=== PATIENT | male | born 1970 | race Hispanic/Latino ===

== ENCOUNTER 2017-11-06 17:45 | Emergency (ER) | payer SELFPAY ==
[2017-11-06] MEDS ORDERED: KETOROLAC 30 MG/ML INJ ONE (19:57)
[2017-11-06] MEDS ORDERED: NA CHLORIDE 0.9% 1,000 ML ONE (19:57)
[2017-11-06 20:00] LABS: Bicarbonate 25 mEq/L (21-31); Glucose Level 112 mg/dL (65-120); Potassium 3.9 mEq/L (3.6-5.0); Sodium Level 141 mEq/L (135-145)
[2017-11-06 20:03] LABS: ALT/SGPT 32 IU/L (10-60); AST/SGOT 24 IU/L (10-42); Albumin 4.1 g/dL (3.2-5.5); Alkaline Phosphatase 77 IU/L (42-121); BUN Blood Urea Nitrogen 12 mg/dL (6-20); Bilirubin Total 0.7 mg/dL (0.3-1.2); Protein, Total 6.9 g/dL (6.0-8.3)
--- NOTE | 2017-11-06 20:58 | EDPHYS ---
Physician Documentation [facility] Name: Juan Calabrese Age: 47 yrs Sex: Male : 1970 Arrival Date: 11/06/2017 Time: 17:49 Bed 17 Private MD: ED Physician Brooks Maloney HPI: 11/06 21:09 This 47 yrs old Male presents to ER via Ambulatory with complaints of ARM \T\ tw4 LEG CRAMPS. 21:09 This 47 yrs old Male presents to ER via Ambulatory with complaints of ARM \T\ tw4 LEG CRAMPS. 21:09 The patient presents with pain, that is acute. The complaints affect the left tw4 quadriceps, right quadriceps. Context:. Onset: The symptoms/episode began/occurred yesterday, states occurred after strenuous exercise. Modifying factors: The symptoms are alleviated by nothing. the symptoms are aggravated by nothing. Associated signs and symptoms: The patient has no apparent associated signs or symptoms. The patient has not experienced similar symptoms in the past. Historical: - Allergies: 18:20 No Known Allergies; hb - Home Meds: 18:20 None [Active]; hb - PMHx: 18:20 None; hb - PSHx: 18:20 None; hb - Immunization history:: Adult Immunizations up to date. - Social history:: Smoking status: Patient/guardian denies using tobacco. ROS: 21:09 Constitutional: Negative for fever, chills, and weight loss, Cardiovascular: Negative tw4 for chest pain, palpitations, and edema, Respiratory: Negative for shortness of breath, cough, wheezing, and pleuritic chest pain, Abdomen/GI: Negative for abdominal pain, nausea, vomiting, diarrhea, and constipation, Back: Negative for injury and pain, Neuro: Negative for headache, weakness, numbness, tingling, and seizure, Psych: Negative for depression, anxiety, suicide ideation, homicidal ideation, and hallucinations. 21:09 MS/extremity: Positive for pain. Exam: 21:09 Constitutional: This is a well developed, well nourished patient who is awake, alert, tw4 and in no acute distress. Head/Face: Normocephalic, atraumatic. Chest/axilla: Normal chest wall appearance and motion. Nontender with no deformity. No lesions are appreciated. Cardiovascular: Regular rate and rhythm with a normal S1 and S2. No gallops, murmurs, or rubs. Normal PMI, no JVD. No pulse deficits. Respiratory: Lungs have equal breath sounds bilaterally, clear to auscultation and percussion. No rales, rhonchi or wheezes noted. No increased work of breathing, no retractions or nasal flaring. Abdomen/GI: Soft, non-tender, with normal bowel sounds. No distension or tympany. No guarding or rebound. No evidence of tenderness throughout. 21:09 MS/ Extremity: Pulses equal, no cyanosis. Neurovascular intact. Full, normal range of motion. Vital Signs: 18:19 BP 162 / 87; Pulse 81; Resp 18; Temp 97.5; Pulse Ox 98% ; Weight 136.08 kg; Height 6 hb ft. 3 in. (190.50 cm); Pain 5/10; 20:49 BP 133 / 76; Pulse 72; Resp 17 S; Pulse Ox 97% on R/A; Pain 1/10; jd3 18:19 Body Mass Index 37.50 (136.08 kg, 190.50 cm) hb MDM: 19:12 Patient medically screened. tw4 21:09 Differential diagnosis: contusion, tendonitis. Data reviewed: vital signs, nurses tw4 notes. Counseling: I had a detailed discussion with the patient and/or guardian regarding: the historical points, exam findings, and any diagnostic results supporting the discharge/admit diagnosis. Medication response: Toradol relieved patient's pain. The symptoms have resolved. Response to treatment: the patient's symptoms have resolved after treatment, and as a result, I will discharge patient. Special discussion: I discussed with the patient/guardian in detail that at this point there is no indication for admission to the hospital. It is understood, however, that if the symptoms persist or worsen the patient needs to return immediately for re-evaluation. 11/06 19:29 Order name: CMP; Complete Time: 20:19 tw4 11/06 19:29 Order name: Magnesium; Complete Time: 20:19 tw4 11/06 19:29 Order name: Saline Lock; Complete Time: 19:53 tw4 11/06 20:19 Order name: CK; Complete Time: 20:57 tw4 Administered Medications: 20:02 Drug: NS 0.9% 1000 ml Route: IV; Rate: 1 bolus; Site: right antecubital; jd3 21:19 Follow up: Response: No adverse reaction; IV Status: Completed infusion; IV Intake: jd3 1000ml 20:03 Drug: TORadol 30 mg Route: IVP; Site: right antecubital; jd3 20:49 Follow up: Response: No adverse reaction; Pain is decreased jd3 Disposition: 11/06/17 20:57 Discharged to Home. Impression: Muscle spasm, Myalgia. - Condition is Stable. - Discharge Instructions: Muscle Pain, Adult. - Prescriptions for Ibuprofen 800 mg Oral Tablet - take 1 tablet by ORAL route every 8 hours As needed take with food; 30 tablet. - Medication Reconciliation Form, Thank You Letter, Antibiotic Education, Prescription Opioid Use form. - Follow up: Private Physician; When: As needed; Reason: Recheck today's complaints, Continuance of care, Re-evaluation by your physician. - Problem is new. - Symptoms have improved. Signatures: Dispatcher [employer] EDJocelyn Stevens RN RN Brown Mcdonald RN RN jd3 Wadley, Terrence, MD MD tw4 Corrections: (The following items were deleted from the chart) 21:26 20:57 11/06/2017 20:57 Discharged to Home. Impression: Muscle spasm; Myalgia. Condition jd3 is Stable. Forms are Medication Reconciliation Form, Thank You Letter, Antibiotic Education, Prescription Opioid Use. Follow up: Private Physician; When: As needed; Reason: Recheck today's complaints, Continuance of care, Re-evaluation by your physician. Problem is new. Symptoms have improved. tw4
--- NOTE | 2017-11-06 20:58 | ER ---
Nurse's Notes [facility] Name: Juan Calabrese Age: 47 yrs Sex: Male : 1970 Arrival Date: 11/06/2017 Time: 17:49 Bed 17 Private MD: Diagnosis: Muscle spasm;Myalgia Presentation: 11/06 18:18 Presenting complaint: Patient states: Severe muscle soreness and spasms after moving furniture then working out while wearing plastic suit 2 days ago. Transition of care: patient was not received from another setting of care. Onset of symptoms was November 06, 2017. Initial Sepsis Screen: Does the patient meet any 2 criteria? No. Patient's initial sepsis screen is negative. Does the patient have a suspected source of infection? No. Patient's initial sepsis screen is negative. Care prior to arrival: None. 18:18 Method Of Arrival: Ambulatory hb 18:18 Acuity: GUERA 3 hb Historical: - Allergies: 18:20 No Known Allergies; hb - Home Meds: 18:20 None [Active]; hb - PMHx: 18:20 None; hb - PSHx: 18:20 None; hb - Immunization history:: Adult Immunizations up to date. - Social history:: Smoking status: Patient/guardian denies using tobacco. Screenin:21 Abuse screen: Denies threats or abuse. Nutritional screening: No deficits noted. jd3 Tuberculosis screening: No symptoms or risk factors identified. Fall Risk Mental Status- Oriented to own ability (0 pts). Total Caruso Fall Scale indicates No Risk (0-24 pts). Assessment: 19:15 General: Appears in no apparent distress. distressed, comfortable, Behavior is calm, jd3 cooperative, appropriate for age, Reports leg and arm cramps/pain and soreness. Pain: Complains of pain in right arm, left arm, right leg and left leg Pain currently is 5 out of 10 on a pain scale. Pain began 2-3 days ago. Is continuous, Aggravated by increased activity. Neuro: Level of Consciousness is awake, alert, obeys commands, Oriented to person, place, time, situation. Cardiovascular: Heart tones S1 S2 present Capillary refill < 3 seconds Patient's skin is warm and dry. Respiratory: Airway is patent Respiratory effort is even, unlabored, Respiratory pattern is regular, symmetrical, Breath sounds are clear bilaterally. GI: No signs and/or symptoms were reported involving the gastrointestinal system. : Denies burning with urination, inability to void. EENT: No signs and/or symptoms were reported regarding the EENT system. Derm: Skin is intact, Skin is diaphoretic, Skin is normal, Skin temperature is warm. Musculoskeletal: Circulation, motion, and sensation intact. Range of motion: intact in all extremities. 20:49 Reassessment: Patient appears in no apparent distress at this time. Patient and/or jd3 family updated on plan of care and expected duration. Pain level reassessed. Patient is alert, oriented x 3, equal unlabored respirations, skin warm/dry/pink. Patient states feeling better. 21:24 Reassessment: Patient appears in no apparent distress at this time. Patient and/or jd3 family updated on plan of care and expected duration. Pain level reassessed. Patient is alert, oriented x 3, equal unlabored respirations, skin warm/dry/pink. pt reported understanding of discharge instructions, even and steady gait upon discharge. Patient states feeling better. Vital Signs: 18:19 BP 162 / 87; Pulse 81; Resp 18; Temp 97.5; Pulse Ox 98% ; Weight 136.08 kg; Height 6 hb ft. 3 in. (190.50 cm); Pain 5/10; 20:49 BP 133 / 76; Pulse 72; Resp 17 S; Pulse Ox 97% on R/A; Pain 1/10; jd3 18:19 Body Mass Index 37.50 (136.08 kg, 190.50 cm) hb ED Course: 17:49 Patient arrived in ED. al2 18:19 Triage completed. hb 18:20 Arm band placed on right wrist. hb 19:12 Brooks Maloney MD is Attending Physician. tw4 19:15 Brown Mcdonald RN is Primary Nurse. jd3 19:22 Patient has correct armband on for positive identification. Bed in low position. Call jd3 light in reach. Side rails up X 1. 19:40 Inserted saline lock: 20 gauge in right antecubital area, using aseptic technique. jd3 Blood collected. 21:24 No provider procedures requiring assistance completed. IV discontinued, intact, jd3 bleeding controlled, No redness/swelling at site. Pressure dressing applied. Administered Medications: 20:02 Drug: NS 0.9% 1000 ml Route: IV; Rate: 1 bolus; Site: right antecubital; jd3 21:19 Follow up: Response: No adverse reaction; IV Status: Completed infusion; IV Intake: jd3 1000ml 20:03 Drug: TORadol 30 mg Route: IVP; Site: right antecubital; jd3 20:49 Follow up: Response: No adverse reaction; Pain is decreased jd3 Intake: 21:19 IV: 1000ml; Total: 1000ml. jd3 Outcome: 20:57 Discharge ordered by . acacia 21:24 Discharged to home ambulatory. jd3 21:24 Condition: stable 21:24 Discharge instructions given to patient, Instructed on discharge instructions, follow up and referral plans. medication usage, Demonstrated understanding of instructions, follow-up care, medications, Prescriptions given X 1. 21:26 Patient left the ED. jd3 Signatures: Jocelyn James, RN Brown Lama RN RN jd3 Love, Angelica al2 Wadley, Terrence, MD MD tw4
== END 2017-11-06 21:26 | disposition home or self-care (01) ==
LOC: ER 17:45
DX: M62.838 Other muscle spasm (principal); M79.1 Myalgia
CPT/HCPCS: 36415; 80053; 82550; 83735; 96361; 96374; 99284; J7030

== ENCOUNTER 2017-12-06 10:36 | Emergency (ER) | payer SELFPAY ==
[2017-12-06 11:35] LABS: Absolute Lymphocytes (CBC) 1.4 K/uL (0.7-4.9); Absolute Monocytes 0.5 K/uL (0.1-1.3); Absolute Neutrophil 5.3 K/uL (1.8-8.0); Basophils % 0.3 % (0-1.3); Eosinophils % 0.8 % (0-4.4); Hematocrit 42.9 % (39.6-49.0); Lymphocytes % 19.1 % (15.3-44.8); MCH 30.3 pg (27.0-35.0); MCV 90.7 fL (80-100); Monocytes % 7.5 % (3.3-12.3); RBC Red Blood Cell Count 4.73 M/uL (4.33-5.43)
[2017-12-06 11:40] LABS: Protime INR 1.04
[2017-12-06 11:46] LABS: Urine Blood NEGATIVE (NEG); Urine Glucose NEGATIVE (NEG); Urine Protein 2+ (NEG); Urine Specific Gravity 1.025 (1.005-1.030); Urine pH 5.5 (5.0-7.0)
[2017-12-06] MEDS ORDERED: NA CHLORIDE 0.9% 1,000 ML ONE (11:46)
[2017-12-06 11:49] LABS: Potassium 3.7 mEq/L (3.6-5.0)
[2017-12-06 11:55] LABS: Bilirubin Direct 0.1 mg/dL (0-0.2); Protein, Total 6.7 g/dL (6.0-8.3)
[2017-12-06 11:58] LABS: CKMB Creatine Kinase MB 4.9 ng/ml (0.3-4.0)
--- NOTE | 2017-12-06 12:40 | ER ---
Nurse's Notes [facility] Name: Juan Calabrese Age: 47 yrs Sex: Male : 1970 Arrival Date: 12/06/2017 Time: 10:39 Bed 13 Private MD: Cedric Mandel Diagnosis: Dehydration;Heat fatigue, transient Presentation: 12/06 10:43 Presenting complaint: Patient states: Reports generalized weakness and sweating when aj working outside in the afternoon for the past week. Seen in this ER for same complaint, has not followed up with PCP. Ambulated to triage with steady gait from vending machines. Transition of care: patient was not received from another setting of care. Onset of symptoms was November 29, 2017. Risk Assessment: Do you want to hurt yourself or someone else? Patient reports no desire to harm self or others. Care prior to arrival: None. 10:43 Method Of Arrival: Ambulatory aj 10:43 Acuity: GUERA 5 aj 12:52 Initial Sepsis Screen: Does the patient meet any 2 criteria? No. Patient's initial jl7 sepsis screen is negative. Does the patient have a suspected source of infection? No. Patient's initial sepsis screen is negative. Triage Assessment: 10:45 General: Appears in no apparent distress. comfortable, Behavior is calm, cooperative, aj appropriate for age. Pain: Denies pain. Neuro: Level of Consciousness is awake, alert, obeys commands, Oriented to person, place, time, situation, Appropriate for age. Respiratory: Airway is patent Respiratory effort is even, unlabored, Respiratory pattern is regular, symmetrical. Derm: Skin is intact, is healthy with good turgor, Skin is pink, warm \T\ dry. normal. Historical: - Allergies: 10:45 No Known Allergies; aj - Home Meds: 10:45 None [Active]; aj - PMHx: 10:45 None; aj - PSHx: 10:45 None; aj - Immunization history:: Adult Immunizations up to date. - Social history:: Smoking status: Patient/guardian denies using tobacco. - Ebola Screening: : Patient negative for fever greater than or equal to 101.5 degrees Fahrenheit, and additional compatible Ebola Virus Disease symptoms Patient denies exposure to infectious person Patient denies travel to an Ebola-affected area in the 21 days before illness onset No symptoms or risks identified at this time. - Family history:: not pertinent. - Hospitalizations: : No recent hospitalization is reported. - History obtained from: . Screenin:59 Abuse screen: Denies threats or abuse. Denies injuries from another. Nutritional jl7 screening: No deficits noted. Tuberculosis screening: No symptoms or risk factors identified. Fall Risk None identified. Assessment: 10:59 General: Appears in no apparent distress. uncomfortable, Behavior is cooperative. Pain: jl7 Denies pain. Neuro: Level of Consciousness is awake, alert, obeys commands, Oriented to person, place, time, situation. Cardiovascular: Patient's skin is warm and dry. Respiratory: Airway is patent Respiratory effort is even, unlabored, Respiratory pattern is regular, symmetrical. GI: No signs and/or symptoms were reported involving the gastrointestinal system. Patient currently denies constipation, diarrhea, nausea, vomiting. : No signs and/or symptoms were reported regarding the genitourinary system. EENT: No signs and/or symptoms were reported regarding the EENT system. Derm: Skin is pink, warm \T\ dry. Musculoskeletal: Reports intermittent cramping to bilateral lower extremities. 11:54 Reassessment: No changes from previously documented assessment. Patient and/or family jl7 updated on plan of care and expected duration. Pain level reassessed. Patient is alert, oriented x 3, equal unlabored respirations, skin warm/dry/pink. 12:51 Reassessment: NS bolus infusing at this time, pt will be discharged upon completion. jl7 Vital Signs: 10:45 BP 119 / 63; Pulse 67; Resp 19; Temp 98.3; Pulse Ox 97% on R/A; Weight 127.01 kg; aj Height 6 ft. 3 in. (190.50 cm); 11:52 BP 109 / 76; Pulse 61; Resp 14; Pulse Ox 94% on R/A; jl7 13:42 BP 121 / 64; Pulse 65; Resp 16; Pulse Ox 98% ; jl7 10:45 Body Mass Index 35.00 (127.01 kg, 190.50 cm) aj NIH Stroke Scale Scores: 11:27 NIHSS Score: 0 kav ED Course: 10:39 Patient arrived in ED. mr 10:39 Cedric Mandel MD is Private Physician. mr 10:45 Triage completed. aj 10:45 Arm band placed on right wrist. Patient placed in an exam room. aj 10:53 Carrie Castaneda, RN is Primary Nurse. jl7 10:59 Patient has correct armband on for positive identification. Bed in low position. Call jl7 light in reach. 11:08 [facility]oney [facility] kav 11:08 Paul Crowe MD is Attending Physician. kav 11:35 Initial lab(s) drawn, by wi, sent to lab. Urine collected: clean catch specimen, alex mh5 colored. Inserted saline lock: 20 gauge in right antecubital area, using aseptic technique. Blood collected. 11:36 EKG done, by bacteriology technician. reviewed by Ruth MERCHANT. dt2 11:37 Basic Metabolic Panel Sent. mh5 11:37 BNP Sent. mh5 11:37 CBC with Diff Sent. mh5 11:37 Ckmb Sent. mh5 11:37 CPK Sent. mh5 11:37 LFT's Sent. mh5 11:37 Magnesium Sent. mh5 11:38 PT-INR Sent. mh5 11:38 Ptt, Activated Sent. mh5 11:38 Troponin (emerg Dept Use Only) Sent. mh5 12:38 Cedric Mandel MD is Referral Physician. kav 12:52 No provider procedures requiring assistance completed. jl7 13:41 IV discontinued, intact, bleeding controlled, No redness/swelling at site. Pressure jl7 dressing applied. Administered Medications: 11:50 Drug: NS 0.9% 1000 ml Route: IV; Rate: 1000 ml; Site: right antecubital; 7 Outcome: 12:39 Discharge ordered by . kav 13:41 Discharged to home ambulatory, with family. jl7 13:41 Condition: stable 13:41 Discharge instructions given to patient, family, Instructed on discharge instructions, follow up and referral plans. Demonstrated understanding of instructions, follow-up care. 13:43 Patient left the ED. jl7 NIH Stroke Scale - NIH Stroke Score Date: 12/06/2017 Time: 11:27 Total Score = 0 1a. Level of Consciousness (LOC) - 0(Alert) 1b. Level of Consciousness (LOC) (Year \T\ Age) - 0(Both) 1c. LOC Commands (Open \T\ Closes Eyes/Nuclear Technician) - 0(Both) 2. Best Gaze (Lateral Gaze Paresis) - 0(Normal) 3. Visual Field Loss - 0(No visual loss) 4. Facial Palsy - 0(Normal) 5a. Left Arm: Motor (10-second hold) - 0(No drift) 5b. Right Arm: Motor (10-second hold) - 0(No drift) 6a. Left Leg: Motor (5-second hold - always test supine) - 0(No drift) 6b. Right Leg: Motor (5-second hold - always test supine) - 0(No drift) 7. Limb Ataxia (finger/nose \T\ heel/green - test with eyes open) - 0(Absent) 8. Sensory Loss (pinprick arms/legs/face) - 0(Normal) 9. Best Language: Aphasia (description/naming/reading) - 0(No aphasia) 10. Dysarthria (speech clarity - read or repeat words) - 0(Normal) 11. Extinction and Inattention (visual/tactile/auditory/spatial/personal) - 0(No abnormality) Initials: wilber Signatures: Krissy Rojas, Ruth Vallecillo RN, CEMENT RUBBER CEMENT RUBBER Afshan Tirado, Afshan Carrie Villafana, Socorro Polk RN
--- NOTE | 2017-12-06 12:40 | EDPHYS ---
Physician Documentation [facility] Name: Juan Calabrese Age: 47 yrs Sex: Male : 1970 Arrival Date: 12/06/2017 Time: 10:39 Bed 13 Private MD: Cedric Mandel ED Physician Paul Crowe HPI: 12/06 11:08 This 47 yrs old Male presents to ER via Ambulatory with complaints of Weakness.kav 11:24 The patient presents to the emergency department with weakness of the entire body, kav generalized weakness. Onset: The symptoms/episode began/occurred acutely, 1 week(s) ago. Context: occurred at work. Associated signs and symptoms: The patient has no apparent associated signs or symptoms, Pertinent positives: Pertinent negatives: chills, fever, headache, nausea. Severity of symptoms: At their worst the symptoms were mild just prior to arrival. Patient's baseline: Neuro: alert and fully oriented, Motor: no deficits, Ambulation: walks without assistance, Speech: normal. Current symptoms: Currently, the patient is not experiencing any symptoms. The patient has not experienced similar symptoms in the past. The patient has not recently seen a physician. patient reports that he "..works as a engineering instructor outside in the heat." he reports that he drinks plenty of fluids and electrolyte replacement at work. he also goes to the gym each evening and works out for 2-3 hours. he denies drinking energy drinks or taking supplements". Historical: - Allergies: 10:45 No Known Allergies; aj - Home Meds: 10:45 None [Active]; aj - PMHx: 10:45 None; aj - PSHx: 10:45 None; aj - Immunization history:: Adult Immunizations up to date. - Social history:: Smoking status: Patient/guardian denies using tobacco. - Ebola Screening: : Patient negative for fever greater than or equal to 101.5 degrees Fahrenheit, and additional compatible Ebola Virus Disease symptoms Patient denies exposure to infectious person Patient denies travel to an Ebola-affected area in the 21 days before illness onset No symptoms or risks identified at this time. - Family history:: not pertinent. - Hospitalizations: : No recent hospitalization is reported. - History obtained from: . ROS: 11:27 Constitutional: Negative for fever, chills, and weight loss, Eyes: Negative for injury, kav pain, redness, and discharge, ENT: Negative for injury, pain, and discharge, Neck: Negative for injury, pain, and swelling, Cardiovascular: Negative for chest pain, palpitations, and edema, Respiratory: Negative for shortness of breath, cough, wheezing, and pleuritic chest pain, Abdomen/GI: Negative for abdominal pain, nausea, vomiting, diarrhea, and constipation, Back: Negative for injury and pain, : Negative for injury, bleeding, discharge, and swelling, MS/Extremity: Negative for injury and deformity, Skin: Negative for injury, rash, and discoloration, Psych: Negative for depression, anxiety, suicide ideation, homicidal ideation, and hallucinations, Allergy/Immunology: Negative for hives, rash, and allergies, Endocrine: Negative for neck swelling, polydipsia, polyuria, polyphagia, and marked weight changes, Hematologic/Lymphatic: Negative for swollen nodes, abnormal bleeding, and unusual bruising. 11:27 Neuro: Positive for weakness, Negative for dizziness, headache, loss of consciousness, seizure activity, speech changes, syncope, tingling, tinnitus, tremor, visual changes. Exam: 11:27 Constitutional: This is a well developed, well nourished patient who is awake, alert, kav and in no acute distress. Head/Face: Normocephalic, atraumatic. Eyes: Pupils equal round and reactive to light, extra-ocular motions intact. Lids and lashes normal. Conjunctiva and sclera are non-icteric and not injected. Cornea within normal limits. Periorbital areas with no swelling, redness, or edema. ENT: Nares patent. No nasal discharge, no septal abnormalities noted. Tympanic membranes are normal and external auditory canals are clear. Oropharynx with no redness, swelling, or masses, exudates, or evidence of obstruction, uvula midline. Mucous membranes moist. Neck: Trachea midline, no thyromegaly or masses palpated, and no cervical lymphadenopathy. Supple, full range of motion without nuchal rigidity, or vertebral point tenderness. No Meningismus. Chest/axilla: Normal chest wall appearance and motion. Nontender with no deformity. No lesions are appreciated. Cardiovascular: Regular rate and rhythm with a normal S1 and S2. No gallops, murmurs, or rubs. Normal PMI, no JVD. No pulse deficits. Respiratory: Lungs have equal breath sounds bilaterally, clear to auscultation and percussion. No rales, rhonchi or wheezes noted. No increased work of breathing, no retractions or nasal flaring. Abdomen/GI: Soft, non-tender, with normal bowel sounds. No distension or tympany. No guarding or rebound. No evidence of tenderness throughout. Back: No spinal tenderness. No costovertebral tenderness. Full range of motion. Skin: Warm, dry with normal turgor. Normal color with no rashes, no lesions, and no evidence of cellulitis. MS/ Extremity: Pulses equal, no cyanosis. Neurovascular intact. Full, normal range of motion. Psych: Awake, alert, with orientation to person, place and time. Behavior, mood, and affect are within normal limits. 11:27 Neuro: Exam negative for Vital Signs: 10:45 BP 119 / 63; Pulse 67; Resp 19; Temp 98.3; Pulse Ox 97% on R/A; Weight 127.01 kg; aj Height 6 ft. 3 in. (190.50 cm); 11:52 BP 109 / 76; Pulse 61; Resp 14; Pulse Ox 94% on R/A; jl7 13:42 BP 121 / 64; Pulse 65; Resp 16; Pulse Ox 98% ; jl7 10:45 Body Mass Index 35.00 (127.01 kg, 190.50 cm) NIH Stroke Scale Scores: 11:27 NIHSS Score: 0 ka MDM: 11:08 Medical screening is not applicable. ka 12:38 Data reviewed: vital signs, EMS record, lab test result(s). 12/06 11:09 Order name: Basic Metabolic Panel; Complete Time: 12:16 12/06 12:16 Interpretation: Normal except: GLUC 183; GFR 83. 12/06 11:09 Order name: BNP; Complete Time: 12:17 12/06 12:17 Interpretation: Within normal limits. 12/06 11:09 Order name: CBC with Diff; Complete Time: 12:18 12/06 12:18 Interpretation: Within normal limits. 12/06 11:09 Order name: Ckmb; Complete Time: 12:17 12/06 12:17 Interpretation: Abnormal: CKMB 4.9. 12/06 11:09 Order name: CPK; Complete Time: 12:16 kav 12/06 12:16 Interpretation: Within normal limits. 12/06 11:09 Order name: LFT's; Complete Time: 12:16 v 12/06 12:16 Interpretation: Within normal limits. 12/06 11:09 Order name: Magnesium; Complete Time: 12:17 v 12/06 12:17 Interpretation: Within normal limits. 12/06 11:09 Order name: PT-INR; Complete Time: 12:17 v 12/06 11:09 Order name: Ptt, Activated; Complete Time: 12:17 v 12/06 12:18 Interpretation: Abnormal: PTT 24.2. 12/06 11:09 Order name: Troponin (emerg Dept Use Only); Complete Time: 12:16 12/06 12:16 Interpretation: Within normal limits. 12/06 11:09 Order name: EKG; Complete Time: 11:09 [facility] 12/06 11:35 Order name: Urine Dipstick--Ancillary (enter results) bd 12/06 11:35 Order name: Urine Dipstick-Ancillary; Complete Time: 11:48 EDMS 12/06 11:48 Interpretation: Normal except: UPROT 2+. 12/06 11:09 Order name: Cardiac monitoring; Complete Time: 11:51 v 12/06 11:09 Order name: EKG - Nurse/Tech; Complete Time: 11:51 12/06 11:09 Order name: IV Saline Lock; Complete Time: 11:36 12/06 11:09 Order name: Labs collected and sent; Complete Time: 11:36 12/06 11:09 Order name: O2 Per Protocol; Complete Time: 11:51 12/06 11:09 Order name: O2 Sat Monitoring; Complete Time: 11:51 12/06 11:09 Order name: Urine Dipstick-Ancillary (obtain specimen); Complete Time: 11:37 kav Administered Medications: 11:50 Drug: NS 0.9% 1000 ml Route: IV; Rate: 1000 ml; Site: right antecubital; jl7 Disposition: 15:17 Co-signature as Attending Physician, Paul rCowe MD I agree with the assessment and kdr plan of care. Disposition: 12/06/17 12:39 Discharged to Home. Impression: Dehydration, Heat fatigue, transient. - Condition is Stable. - Discharge Instructions: Dehydration, Adult, [id number], Rehydration, Adult. - Medication Reconciliation Form, Thank You Letter, Antibiotic Education, Prescription Opioid Use form. - Follow up: Cedric Mandel MD; When: 1 - 2 days; Reason: Recheck today's complaints, Continuance of care, Re-evaluation by your physician. - Problem is new. - Symptoms have improved. - Notes: ensure adequate hydration with both water and electrolyte supplements do not consume any energy drinks avoid high heat environments NIH Stroke Scale - NIH Stroke Score Date: 12/06/2017 Time: 11:27 Total Score = 0 1a. Level of Consciousness (LOC) - 0(Alert) 1b. Level of Consciousness (LOC) (Year \\T\\ Age) - 0(Both) 1c. LOC Commands (Open \\T\\ Closes Eyes/Medical Management Trainer) - 0(Both) 2. Best Gaze (Lateral Gaze Paresis) - 0(Normal) 3. Visual Field Loss - 0(No visual loss) 4. Facial Palsy - 0(Normal) 5a. Left Arm: Motor (10-second hold) - 0(No drift) 5b. Right Arm: Motor (10-second hold) - 0(No drift) 6a. Left Leg: Motor (5-second hold - always test supine) - 0(No drift) 6b. Right Leg: Motor (5-second hold - always test supine) - 0(No drift) 7. Limb Ataxia (finger/nose \\T\\ heel/green - test with eyes open) - 0(Absent) 8. Sensory Loss (pinprick arms/legs/face) - 0(Normal) 9. Best Language: Aphasia (description/naming/reading) - 0(No aphasia) 10. Dysarthria (speech clarity - read or repeat words) - 0(Normal) 11. Extinction and Inattention (visual/tactile/auditory/spatial/personal) - 0(No abnormality) Initials: wilber Signatures: Dispatcher [employer] Krissy Fung RN RN aj Rittger, Kevin, MD MD kdr Vern, Katherine, CASE THERAPIST CASE THERAPIST Carrie Summers RN RN jl7 Corrections: (The following items were deleted from the chart) 12:17 12:17 Within normal limits. avev kav 12:18 12:17 Abnormal. ka ka 13:43 12:39 12/06/2017 12:39 Discharged to Home. Impression: Dehydration; Heat jl7 fatigue, transient. Condition is Stable. Forms are Medication Reconciliation Form, Thank You Letter, Antibiotic Education, Prescription Opioid Use. Follow up: Cedric Mandel; When: 1 - 2 days; Reason: Recheck today's complaints, Continuance of care, Re-evaluation by your physician. Problem is new. Symptoms have improved. kav
--- NOTE | 2017-12-06 13:57 | EKG ---
Test Date: 2017-12-06 Test Time: 11:32:09 Chief Of Field Operations: SAJI MEASUREMENT RESULTS: Intervals: Rate: 62 IL: 176 QRSD: 120 QT: 420 QTc: 426 [place]: P: 61 IL: 176 QRS: -37 T: 51 INTERPRETIVE STATEMENTS: Normal sinus rhythm Left axis deviation Right bundle branch block Moderate voltage criteria for LVH, may be normal variant Abnormal ECG Compared to ECG 01/02/2017 22:46:03 Right bundle-branch block now present Electronically Signed On 12-06-17 13:57:18 CDT by Ar Ribeiro
== END 2017-12-06 13:43 | disposition home or self-care (01) ==
LOC: ER 10:36
DX: E86.0 Dehydration (principal); T67.5XXA Heat exhaustion, unspecified, initial encounter; X58.XXXA Exposure to other specified factors, initial encounter; Y93.9 Activity, unspecified; Y92.9 Unspecified place or not applicable; Y99.9 Unspecified external cause status
CPT/HCPCS: 36415; 80048; 80076; 81003; 82550; 82553; 83735; 83880; 84484; 85025; 85610; 85730; 93005; 99284; J7030

== ENCOUNTER 2018-02-21 10:32 | Emergency (ER) | payer SELFPAY ==
[2018-02-21] MEDS ORDERED: IBUPROFEN 400 MG TAB ONE (11:35)
[2018-02-21] MEDS ORDERED: NA CHLORIDE 0.9% 1,000 ML ONE ×2 (11:36→11:54)
[2018-02-21 11:47] LABS: Absolute Lymphocytes (CBC) 1.7 K/uL (0.7-4.9); Absolute Monocytes 0.7 K/uL (0.1-1.3); Absolute Neutrophil 5.9 K/uL (1.8-8.0); Basophils % 0.3 % (0-1.3); Eosinophils % 0.5 % (0-4.4); Hematocrit 47.5 % (39.6-49.0); Lymphocytes % 20.4 % (15.3-44.8); MCH 31.3 pg (27.0-35.0); MCV 90.6 fL (80-100); MPV 9.5 fL (7.6-11.3); Monocytes % 7.8 % (3.3-12.3); RBC Red Blood Cell Count 5.23 M/uL (4.33-5.43)
--- NOTE | 2018-02-21 12:01 | RAD REPORT ---
EXAM DESCRIPTION: Valeria Beltran (2 Views)02/21/2018 11:46 am CLINICAL HISTORY: Fever COMPARISON: None FINDINGS: The lungs appear clear of acute infiltrate. The heart is normal size IMPRESSION: No acute abnormalities displayed
[2018-02-21 12:22] LABS: BUN Blood Urea Nitrogen 16 mg/dL (7-18); Bicarbonate 29 mmol/L (21-32); Glucose Level 108 mg/dL (74-106); Potassium 4.1 mmol/L (3.5-5.1); Sodium Level 139 mmol/L (136-145)
[2018-02-21 13:50] LABS: Urine Bacteria <20 /HPF (NONE SEEN); Urine RBC <5 /HPF (NONE SEEN)
[2018-02-21 13:51] LABS: Urine Culture Reflex Order NOT NEEDED
[2018-02-21 13:52] LABS: Urine Blood NEGATIVE (NEG); Urine Glucose NEGATIVE (NEG); Urine Protein NEGATIVE (NEG); Urine Specific Gravity 1.015 (1.005-1.030); Urine pH 7.5 (5.0-7.0)
--- NOTE | 2018-02-21 15:04 | ER ---
Nurse's Notes [facility] Name: Juan Calabrese Age: 47 yrs Sex: Male : 1970 Arrival Date: 02/21/2018 Time: 10:35 Bed 26 Private MD: Cedric Mandel Diagnosis: Fever, unspecified Presentation: 02/21 10:44 Presenting complaint: Patient states: Reports feeling flushed and fatigued this AM with aj unexplained sweating. Denies pain or numbness. Ambulated with steady gait in NAD. Transition of care: patient was not received from another setting of care. Onset of symptoms was February 21, 2018. Risk Assessment: Do you want to hurt yourself or someone else? Patient reports no desire to harm self or others. Initial Sepsis Screen: Does the patient meet any 2 criteria? No. Patient's initial sepsis screen is negative. Does the patient have a suspected source of infection? No. Patient's initial sepsis screen is negative. Care prior to arrival: None. 10:44 Method Of Arrival: Ambulatory 10:44 Acuity: GUERA 3 aj Triage Assessment: 10:45 General: Appears in no apparent distress. comfortable, Behavior is calm, cooperative, aj appropriate for age. Pain: Denies pain. Neuro: Level of Consciousness is awake, alert, obeys commands, Oriented to person, place, time, situation, Appropriate for age. Cardiovascular: Denies chest pain. Respiratory: Airway is patent Respiratory effort is even, unlabored, Respiratory pattern is regular, symmetrical. GI: No signs and/or symptoms were reported involving the gastrointestinal system. Abdomen is non-distended, obese. Derm: Skin is intact, is healthy with good turgor, Skin is clammy, Skin is normal. Historical: - Allergies: 10:45 No Known Allergies; aj - Home Meds: 10:45 None [Active]; aj - PMHx: 10:45 None; aj - PSHx: 10:45 None; aj - Immunization history:: Adult Immunizations unknown. - Social history:: Smoking status: Patient/guardian denies using tobacco. - Ebola Screening: : Patient negative for fever greater than or equal to 101.5 degrees Fahrenheit, and additional compatible Ebola Virus Disease symptoms Patient denies exposure to infectious person Patient denies travel to an Ebola-affected area in the 21 days before illness onset No symptoms or risks identified at this time. - Family history:: not pertinent. - Hospitalizations: : No recent hospitalization is reported. Screenin:36 Abuse screen: Denies threats or abuse. Denies injuries from another. Nutritional ch screening: No deficits noted. Tuberculosis screening: No symptoms or risk factors identified. Fall Risk None identified. Assessment: 11:36 General: Appears in no apparent distress. comfortable, Behavior is calm, cooperative, ch appropriate for age. Pain: Complains of pain in generalized body aches Pain currently is 2 out of 10 on a pain scale. Pain began gradually. Neuro: No deficits noted. Cardiovascular: Heart tones S1 S2 Capillary refill < 3 seconds in bilateral fingers toes Clubbing of nail beds is absent. Respiratory: Airway is patent Respiratory effort is even, unlabored, Breath sounds are clear bilaterally. GI: No signs and/or symptoms were reported involving the gastrointestinal system. : No signs and/or symptoms were reported regarding the genitourinary system. Derm: Skin is intact, Skin is clammy, Skin is pale. Musculoskeletal: Circulation, motion, and sensation intact. pt reports feeling weak all over. 13:05 Reassessment: Patient and/or family updated on plan of care and expected duration. Pain tl3 level reassessed. Patient is alert, oriented x 3, equal unlabored respirations, skin warm/dry/pink. pt sleeping, arouses easily. 15:08 Reassessment: Patient appears in no apparent distress at this time. No changes from tl3 previously documented assessment. Patient and/or family updated on plan of care and expected duration. Pain level reassessed. Patient is alert, oriented x 3, equal unlabored respirations, skin warm/dry/pink. DR Link at bedside discussing POC. Vital Signs: 10:45 BP 117 / 75; Pulse 73; Resp 18; Temp 99.1(O); Pulse Ox 96% on R/A; Weight 120.2 kg; aj Height 6 ft. 3 in. (190.50 cm); 11:50 BP 133 / 85 LA Supine (auto/lg); Pulse 59; Resp 19 S; Pulse Ox 99% on R/A; jp3 12:30 BP 133 / 91 LA Supine (auto/lg); Pulse 70; Resp 19; Pulse Ox 96% on R/A; jp3 14:13 BP 131 / 87; Pulse 50; Resp 16; Pulse Ox 100% on R/A; tl3 15:08 BP 130 / 90; Pulse 50; Resp 18; Pulse Ox 100% ; tl3 15:08 Temp 97.8(O); tl3 10:45 Body Mass Index 33.12 (120.20 kg, 190.50 cm) aj ED Course: 10:35 Patient arrived in ED. ds1 10:36 Cedric Mandel MD is Private Physician. sb2 10:45 Triage completed. aj 10:45 Arm band placed on left wrist. Patient placed in waiting room, Patient notified of wait aj time. 11:07 Devin Link MD is Attending Physician. rn 11:20 Initial lab(s) drawn, by me, sent to lab. Flu and/or RSV swab sent to lab. Strep swab jp3 sent to lab. Inserted saline lock: 22 gauge in right forearm, using aseptic technique. Blood collected. 11:29 Lorena Mota, RN is Primary Nurse. ch 11:32 EKG done, by flight technician. reviewed by Devin Link MD. dt2 11:36 Patient has correct armband on for positive identification. Bed in low position. Call light in reach. Side rails up X 1. 11:36 No provider procedures requiring assistance completed. ch 11:39 Placed in gown. jp3 11:40 X-ray completed. Patient tolerated procedure well. Patient moved back from radiology. jf 11:41 XRAY Chest Pa And Lat (2 Views) In Process Unspecified. EDMS 11:53 Pulse ox on. NIBP on. jp3 11:58 Primary Nurse role handed off by Lorena Mota, ZIGGY iw 11:58 Adela Cardenas, RN is Primary Nurse. iw 12:50 Urine collected: clean catch specimen, clear, alex colored. jp3 13:03 Lights dimmed. jp3 13:04 Urine Microscopic Only Sent. jp3 13:09 Primary Nurse role handed off by Adela Cardenas, RN tl3 13:09 Catie Reyes, ZIGGY is Primary Nurse. tl3 14:14 Appears to be sleeping. tl3 14:14 Warm blanket given. Pillow given. tl3 14:14 Repeat lab(s) drawn. by me, sent to lab. tl3 14:31 Troponin (emerg Dept Use Only) Sent. jp3 14:31 Throat Culture Sent. jp3 15:08 IV discontinued, intact, bleeding controlled, No redness/swelling at site. Pressure tl3 dressing applied. Administered Medications: 11:36 Drug: Motrin 600 mg Route: PO; 14:14 Follow up: Response: No adverse reaction tl3 11:50 Drug: NS 0.9% 1000 ml Route: IV; Rate: 1000 ml; Site: right forearm; 14:13 Follow up: IV Status: Completed infusion; IV Intake: 1000ml tl3 Intake: 14:13 IV: 1000ml; Total: 1000ml. tl3 Outcome: 15:03 Discharge ordered by . rn 15:08 Discharged to home ambulatory. tl3 15:08 Condition: stable 15:08 Discharge instructions given to patient, Instructed on discharge instructions, follow up and referral plans. Demonstrated understanding of instructions, follow-up care. 15:19 Patient left the ED. tl3 Signatures: Dispatcher [employer] EDLorena Tang RN Krissy Clarke ch, RN Valeria Yang ds1 Adela Cardenas RN Devin Andersen MD MD rn Faul, Justin jf Billeau, Sheri sb2 Lowrey, Tammy, RN RN tl3 Socorro Hernandez2 Christian Rivera jp3
--- NOTE | 2018-02-21 15:04 | EDPHYS ---
Physician Documentation [facility] Name: Juan Calabrese Age: 47 yrs Sex: Male : 1970 Arrival Date: 02/21/2018 Time: 10:35 Bed 26 Private MD: Cedric Mandel ED Physician Devin Link HPI: 02/21 11:17 This 47 yrs old Male presents to ER via Ambulatory with complaints of rn Weakness, SWEATING. 11:17 The patient presents to the emergency department with weakness of the entire body, rn generalized weakness. Onset: The symptoms/episode began/occurred today. Severity of symptoms: At their worst the symptoms were mild in the emergency department the symptoms are unchanged. Current symptoms: Currently, the patient is not experiencing any symptoms. The patient has not experienced similar symptoms in the past. Reports driving, feeling of flushed, sweating, generalized fatigue, no focal weakness, no headache/chest pain/sob/abd pain/vomiting/diarrhea. with flu-like illness at home. Pt feels tired and thirsty.. Historical: - Allergies: 10:45 No Known Allergies; aj - Home Meds: 10:45 None [Active]; aj - PMHx: 10:45 None; aj - PSHx: 10:45 None; aj - Immunization history:: Adult Immunizations unknown. - Social history:: Smoking status: Patient/guardian denies using tobacco. - Ebola Screening: : Patient negative for fever greater than or equal to 101.5 degrees Fahrenheit, and additional compatible Ebola Virus Disease symptoms Patient denies exposure to infectious person Patient denies travel to an Ebola-affected area in the 21 days before illness onset No symptoms or risks identified at this time. - Family history:: not pertinent. - Hospitalizations: : No recent hospitalization is reported. ROS: 11:17 Constitutional: Negative for weight loss Eyes: Negative for injury, pain, redness, and software engineer intern, Neck: Negative for injury, pain, and swelling, Cardiovascular: Negative for chest pain, palpitations, and edema, Respiratory: Negative for shortness of breath, cough, wheezing, and pleuritic chest pain, Abdomen/GI: Negative for abdominal pain, nausea, vomiting, diarrhea, and constipation, MS/Extremity: Negative for injury and deformity, Skin: Negative for injury, rash, and discoloration, Neuro: Negative for headache, numbness, tingling, and seizure. Exam: 11:17 Constitutional: This is a well developed, well nourished patient who is awake, alert, rn and in no acute distress. Head/Face: Normocephalic, atraumatic. Eyes: Pupils equal round and reactive to light, extra-ocular motions intact. Lids and lashes normal. Conjunctiva and sclera are non-icteric and not injected. Cornea within normal limits. Periorbital areas with no swelling, redness, or edema. ENT: Nares patent. No nasal discharge, no septal abnormalities noted. Oropharynx with no redness, swelling, or masses, exudates, or evidence of obstruction, uvula midline. Mucous membranes moist. Neck: Nontender cervical LAD Cardiovascular: Regular rate and rhythm with a normal S1 and S2. No gallops, murmurs, or rubs. Normal PMI, no JVD. No pulse deficits. Respiratory: Lungs have equal breath sounds bilaterally, clear to auscultation and percussion. No rales, rhonchi or wheezes noted. No increased work of breathing, no retractions or nasal flaring. Abdomen/GI: Soft, non-tender, with normal bowel sounds. No distension or tympany. No guarding or rebound. No evidence of tenderness throughout. Skin: Warm, dry with normal turgor. Normal color with no rashes, no lesions, and no evidence of cellulitis. MS/ Extremity: Pulses equal, no cyanosis. Neurovascular intact. Full, normal range of motion. Equal circumference. Neuro: Awake and alert, GCS 15, oriented to person, place, time, and situation. Cranial nerves II-XII grossly intact. Motor strength 5/5 in all extremities. Sensory grossly intact. Cerebellar exam normal. Normal gait. Vital Signs: 10:45 BP 117 / 75; Pulse 73; Resp 18; Temp 99.1(O); Pulse Ox 96% on R/A; Weight 120.2 kg; aj Height 6 ft. 3 in. (190.50 cm); 11:50 BP 133 / 85 LA Supine (auto/lg); Pulse 59; Resp 19 S; Pulse Ox 99% on R/A; jp3 12:30 BP 133 / 91 LA Supine (auto/lg); Pulse 70; Resp 19; Pulse Ox 96% on R/A; jp3 14:13 BP 131 / 87; Pulse 50; Resp 16; Pulse Ox 100% on R/A; tl3 15:08 BP 130 / 90; Pulse 50; Resp 18; Pulse Ox 100% ; tl3 15:08 Temp 97.8(O); tl3 10:45 Body Mass Index 33.12 (120.20 kg, 190.50 cm) aj MDM: 11:07 Patient medically screened. rn 15:00 Data reviewed: vital signs, nurses notes, lab test result(s), EKG, radiologic studies, rn plain films, and as a result, I will discharge patient. Counseling: I had a detailed discussion with the patient and/or guardian regarding: the historical points, exam findings, and any diagnostic results supporting the discharge/admit diagnosis, lab results, radiology results, the need for outpatient follow up, to return to the emergency department if symptoms worsen or persist or if there are any questions or concerns that arise at home. Response to treatment: the patient's symptoms have markedly improved after treatment. Special discussion: I discussed with the patient/guardian in detail that at this point there is no indication for admission to the hospital. It is understood, however, that if the symptoms persist or worsen the patient needs to return immediately for re-evaluation. ED course: Pt with neg w/u, including repeat trop, neg procalcitonin, neg cxr, neg flu/strep/mono, most likely getting cold/virus that has at home, recommended rest and hydration and return precautions given and understood.. 02/21 11:15 Order name: CBC with Diff; Complete Time: 12:02 02/21 11:15 Order name: Basic Metabolic Panel; Complete Time: 13:00 02/21 11:15 Order name: Urine Microscopic Only; Complete Time: 14:58 rn 02/21 11:15 Order name: Procalcitonin; Complete Time: 13:00 rn 02/21 11:15 Order name: Strep; Complete Time: 13:00 02/21 11:15 Order name: Flu; Complete Time: 13:00 02/21 11:15 Order name: XRAY Chest Pa And Lat (2 Views); Complete Time: 12:02 rn 02/21 11:15 Order name: [place] Screen Profile; Complete Time: 13:33 rn 02/21 11:15 Order name: Troponin (emerg Dept Use Only); Complete Time: 13:00 rn 02/21 12:53 Order name: Throat Culture EDMI 02/21 13:32 Order name: Urine Dipstick--Ancillary (enter results); Complete Time: 14:58 bd 02/21 13:34 Order name: Troponin (emerg Dept Use Only); Complete Time: 14:58 rn 02/21 11:15 Order name: IV Start; Complete Time: 11:29 rn 02/21 11:15 Order name: Urine Dipstick-Ancillary (obtain specimen); Complete Time: 13:04 rn 02/21 11:15 Order name: EKG; Complete Time: 11:16 rn 02/21 11:15 Order name: EKG - Nurse/Tech; Complete Time: 11:29 rn Administered Medications: 11:36 Drug: Motrin 600 mg Route: PO; 14:14 Follow up: Response: No adverse reaction tl3 11:50 Drug: NS 0.9% 1000 ml Route: IV; Rate: 1000 ml; Site: right forearm; 14:13 Follow up: IV Status: Completed infusion; IV Intake: 1000ml tl3 Disposition: 02/21/18 15:03 Discharged to Home. Impression: Fever, unspecified. - Condition is Stable. - Discharge Instructions: Fever, Adult. - Medication Reconciliation Form, Thank You Letter, Antibiotic Education, Prescription Opioid Use form. - Follow up: Private Physician; When: As needed; Reason: Recheck today's complaints, Re-evaluation by your physician. - Problem is new. - Symptoms have improved. Signatures: Dispatcher [employer] [facility] Lorena Mota RN RN ch Myers, Amanda, RN RN aj Williams, Irene, RN RN Devin Link MD MD rn Lowrey, Tammy, RN RN tl3 Corrections: (The following items were deleted from the chart) 15:19 15:03 02/21/2018 15:03 Discharged to Home. Impression: Fever, unspecified. Condition is tl3 Stable. Forms are Medication Reconciliation Form, Thank You Letter, Antibiotic Education, Prescription Opioid Use. Follow up: Private Physician; When: As needed; Reason: Recheck today's complaints, Re-evaluation by your physician. Problem is new. Symptoms have improved. rn
--- NOTE | 2018-02-21 16:15 | EKG ---
Test Date: 2018-02-21 Test Time: 11:27:21 Automatic Developer: TAYA MEASUREMENT RESULTS: Intervals: Rate: 61 [place]: 160 QRSD: 114 QT: 402 QTc: 404 [place]: P: 59 [place]: 160 QRS: -46 T: 36 INTERPRETIVE STATEMENTS: Normal sinus rhythm Incomplete right bundle branch block Left anterior fascicular block Voltage criteria for left ventricular hypertrophy Abnormal ECG Compared to ECG 12/06/2017 11:32:09 Incomplete right bundle-branch block now present Left anterior fascicular block now present Left-axis deviation no longer present Right bundle-branch block no longer present Electronically Signed On 02-21-18 16:14:27 CDT by Zev Nuñez
== END 2018-02-21 15:19 | disposition home or self-care (01) ==
LOC: ER 10:32
DX: R50.9 Fever, unspecified (principal)
CPT/HCPCS: 36415; 71046; 80048; 81003; 81015; 84145; 84484; 85025; 86308; 87070; 87081; 87804; 93005; 96360; 96361; 99284; J7030

== ENCOUNTER 2018-08-12 11:16 | Emergency (ER) | payer SELFPAY ==
--- NOTE | 2018-08-12 13:02 | RAD REPORT ---
EXAM DESCRIPTION: RAD - Lumbar Spine 3 Views - 08/12/2018 12:54 pm CLINICAL HISTORY: Back pain FINDINGS: The alignment of the lumbar spine is satisfactory. No fracture or dislocation is seen. Mild to moderate spondylosis involves the distal lumbar spine consisting of disc space narrowing and osteophytes. 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
[2018-08-12] MEDS ORDERED: KETOROLAC 30 MG/ML INJ ONE (13:04)
[2018-08-12] MEDS ORDERED: CYCLOBENZAPRINE 10 MG TAB ONE (13:04)
--- NOTE | 2018-08-12 13:30 | ER ---
Nurse's Notes [facility] Name: Juan Calabrese Age: 47 yrs Sex: Male : 1970 Arrival Date: 08/12/2018 Time: 11:19 Bed 11 Private MD: Diagnosis: Sprain of ligaments of lumbar spine Presentation: 08/12 11:40 Presenting complaint: Patient states: I was doing squats yesterday and I felt something la1 give in my back and I have been having pain since then. Pt ambulatory to triage. Transition of care: patient was not received from another setting of care. Onset of symptoms was August 12, 2018. Risk Assessment: Do you want to hurt yourself or someone else? Patient reports no desire to harm self or others. Initial Sepsis Screen: Does the patient meet any 2 criteria? No. Patient's initial sepsis screen is negative. Does the patient have a suspected source of infection? No. Patient's initial sepsis screen is negative. Care prior to arrival: None. 11:40 Method Of Arrival: Ambulatory la1 11:40 Acuity: GUERA 4 la1 Triage Assessment: 13:40 General: Appears in no apparent distress. Behavior is calm. iw Historical: - Allergies: 11:40 No Known Allergies; la1 - PMHx: 11:40 None; la1 - Immunization history:: Adult Immunizations up to date. - Social history:: Smoking status: Patient/guardian denies using tobacco. - Ebola Screening: : No symptoms or risks identified at this time. Screenin:40 Abuse screen: Denies threats or abuse. Denies injuries from another. Nutritional iw screening: No deficits noted. Tuberculosis screening: No symptoms or risk factors identified. Fall Risk None identified. Assessment: 12:45 General: Appears uncomfortable, Behavior is calm, cooperative. Pain: Complains of pain iw in lumbar area, left low back and right low back. Neuro: Level of Consciousness is awake, alert, obeys commands, Oriented to person, place, time, Moves all extremities. Cardiovascular: Patient's skin is warm and dry. Respiratory: Airway is patent. Derm: Skin is intact, is healthy with good turgor. Musculoskeletal: Range of motion: intact in all extremities, Reports pain in lumbar area, left low back and right low back. Vital Signs: 11:42 Resp 16; Temp 97.6; Pulse Ox 98% on R/A; Weight 120.2 kg; Height 6 ft. 3 in. (190.50 la1 cm); Pain 7/10; 11:43 BP 125 / 73; Pulse 77; la1 11:42 Body Mass Index 33.12 (120.20 kg, 190.50 cm) la1 ED Course: 11:19 Patient arrived in ED. rg4 11:41 Triage completed. la1 11:41 Arm band placed on left wrist. la1 12:30 Connor John PA is PHCP. m 12:30 Faraz Lynch MD is Attending Physician. jmm 12:45 Patient has correct armband on for positive identification. iw 12:54 Lumbar Spine (3 Views) XRAY In Process Unspecified. EDMS 13:05 Adela Cardenas, RN is Primary Nurse. iw 13:43 No provider procedures requiring assistance completed. Patient did not have IV access iw during this emergency room visit. Administered Medications: 13:19 Drug: Ketorolac 60 mg Route: IM; Site: right deltoid; iw 13:19 Drug: Flexeril 10 mg Route: PO; iw Outcome: 13:30 Discharge ordered by . jmm 13:43 Discharged to home ambulatory. iw 13:43 Condition: good 13:43 Discharge instructions given to patient, Instructed on discharge instructions, follow up and referral plans. medication usage, Demonstrated understanding of instructions, follow-up care, medications, Prescriptions given X 3. 13:44 Patient left the ED. jl7 Signatures: Dispatcher [employer] EDMS Connor John PA PA jmm Williams, Irene, ZIGGY TRINH iw Darshan Rodgers RN RN la1 Garcia, Rubi 4 Carrie Castaneda RN RN jl7
--- NOTE | 2018-08-12 13:30 | EDPHYS ---
Physician Documentation [facility] Name: Juan Calabrese Age: 47 yrs Sex: Male : 1970 Arrival Date: 08/12/2018 Time: 11:19 Bed 11 Private MD: ED Physician Faraz Lynch HPI: 08/12 12:37 This 47 yrs old Male presents to ER via Ambulatory with complaints of Low Back jmm Pain. 12:37 The patient presents with pain that is acute. The symptoms are located in the low back. jmm The pain does not radiate. The problem was sustained when lifting. Onset: The symptoms/episode began/occurred acutely, yesterday. This is a 47 year old male with no chronic medical conditions that presents to the ED with lower back pain beginning yesterday after a weighted squat. Patient states he felt a pop. Denies numbness or weakness to the legs. Denies radiation of pain. . Historical: - Allergies: 11:40 No Known Allergies; la1 - PMHx: 11:40 None; la1 - Immunization history:: Adult Immunizations up to date. - Social history:: Smoking status: Patient/guardian denies using tobacco. - Ebola Screening: : No symptoms or risks identified at this time. ROS: 12:37 Constitutional: Negative for fever, chills, and weight loss, Cardiovascular: Negative jmm for chest pain, palpitations, and edema, Respiratory: Negative for shortness of breath, cough, wheezing, and pleuritic chest pain. 12:37 Back: Positive for pain with movement. 12:37 All other systems are negative. Exam: 12:37 Constitutional: This is a well developed, well nourished patient who is awake, alert, jmm and in no acute distress. Head/Face: atraumatic. Eyes: EOMI, no conjunctival erythema appreciated ENT: Moist Mucus Membranes Neck: Trachea midline, Supple Chest/axilla: Normal chest wall appearance and motion. Cardiovascular: Regular rate and rhythm. No edema appreciated Respiratory: Normal respirations, no respiratory distress appreciated Abdomen/GI: Non distended, soft 12:37 Back: lower lumbar midline tenderness. 12:37 Musculoskeletal/extremity: ROM: intact in all extremities, extensor hallucis longus intact bilaterally. 12:37 Skin: Appearance: Color: normal in color. 12:37 Neuro: Orientation: is normal, Mentation: is normal, Memory: is normal, Motor: is normal. 12:37 Psych: Behavior/mood is pleasant, cooperative. Vital Signs: 11:42 Resp 16; Temp 97.6; Pulse Ox 98% on R/A; Weight 120.2 kg; Height 6 ft. 3 in. (190.50 la1 cm); Pain 7/10; 11:43 BP 125 / 73; Pulse 77; la1 11:42 Body Mass Index 33.12 (120.20 kg, 190.50 cm) la1 MDM: 12:37 Patient medically screened. [facility] 13:28 Data reviewed: vital signs, nurses notes. Counseling: I had a detailed discussion with [facility] the patient and/or guardian regarding: the historical points, exam findings, and any diagnostic results supporting the discharge/admit diagnosis, radiology results, the need for outpatient follow up, to return to the emergency department if symptoms worsen or persist or if there are any questions or concerns that arise at home. ED course: Patient has no symptoms concerning for cord compression. Extensor hallucis longus intact bilaterally. Patient advised to follow up with pcp or return to the ED if symptoms worsen. patient understood and agrees with the plan of care. . 08/12 12:40 Order name: Lumbar Spine (3 Views) XRAY; Complete Time: 13:05 [facility] Administered Medications: 13:19 Drug: Ketorolac 60 mg Route: IM; Site: right deltoid; iw 13:19 Drug: Flexeril 10 mg Route: PO; iw Disposition: 17:33 Co-signature as Attending Physician, Faraz Lynch MD. Disposition: 08/12/18 13:30 Discharged to Home. Impression: Sprain of ligaments of lumbar spine. - Condition is Stable. - Discharge Instructions: Back Pain, Adult. - Prescriptions for Ibuprofen 800 mg Oral Tablet - take 1 tablet by ORAL route every 8 hours As needed take with food; 30 tablet. Zanaflex 4 mg Oral Tablet - take 1 tablet by ORAL route every 8 hours As needed; 20 tablet. Medrol (Genaro) 4 mg Oral Tablets, Dose Pack - take 1 tablet by ORAL route as directed - follow package instructions; 1 packet. - Medication Reconciliation Form, Thank You Letter, Antibiotic Education, Prescription Opioid Use, Work release form form. - Follow up: Private Physician; When: 2 - 3 days; Reason: Recheck today's complaints, Continuance of care, Re-evaluation by your physician. Signatures: Dispatcher [employer] EDMS Connor John PA PA jmm Williams, Irene, RN RN Darshan Rodgers RN RN la1 Carrie Castaneda RN RN jl7 Faraz Lynch MD MD gs Corrections: (The following items were deleted from the chart) 13:44 13:30 08/12/2018 13:30 Discharged to Home. Impression: Sprain of ligaments of lumbar jl7 spine. Condition is Stable. Forms are Medication Reconciliation Form, Thank You Letter, Antibiotic Education, Prescription Opioid Use. Follow up: Private Physician; When: 2 - 3 days; Reason: Recheck today's complaints, Continuance of care, Re-evaluation by your physician. britney
== END 2018-08-12 13:44 | disposition home or self-care (01) ==
LOC: ER 11:16
DX: S33.5XXA Sprain of ligaments of lumbar spine, initial encounter (principal); X50.0XXA Overexertion from strenuous movement or load, initial encounter; Y93.B9 Activity, other involving muscle strengthening exercises; Y92.9 Unspecified place or not applicable
CPT/HCPCS: 72100

== ENCOUNTER 2018-09-01 18:29 | Emergency (ER) | payer SELFPAY ==
[2018-09-01] MEDS ORDERED: KETOROLAC 30 MG/ML INJ ONE (19:25)
[2018-09-01] MEDS ORDERED: CYCLOBENZAPRINE 10 MG TAB ONE (19:25)
--- NOTE | 2018-09-01 19:39 | ER ---
Nurse's Notes [facility] Name: Juan Calabrese Age: 47 yrs Sex: Male : 1970 Arrival Date: 09/01/2018 Time: 18:30 Bed 23 Private MD: Diagnosis: Sprain of ligaments of lumbar spine Presentation: 09/01 18:38 Presenting complaint: Presenting complaint: Patient states: here two weeks ago for back ch pain after lifting weights, today I was helping a friend move and the pain came back. I took naproxen but it isnt helping. occurred at 1330. 18:38 Transition of care: patient was not received from another setting of care. Onset of ch symptoms was September 01, 2018 at 13:30. Risk Assessment: Do you want to hurt yourself or someone else? Patient reports no desire to harm self or others. Initial Sepsis Screen: Does the patient meet any 2 criteria? No. Patient's initial sepsis screen is negative. Does the patient have a suspected source of infection? No. Patient's initial sepsis screen is negative. Care prior to arrival: None. 18:38 Method Of Arrival: Ambulatory 18:38 Acuity: GUERA 4 ch Triage Assessment: 18:39 General: Appears in no apparent distress. uncomfortable, Behavior is calm, cooperative, ch appropriate for age. Pain: Complains of pain in low back area and mid back area Pain currently is 8 out of 10 on a pain scale. Pain began suddenly. Historical: - Allergies: 18:39 No Known Allergies; ch - PMHx: 18:39 None; ch - PSHx: 18:39 None; ch - Immunization history:: Adult Immunizations up to date, Flu vaccine is not up to date. - Social history:: Smoking status: Patient/guardian denies using tobacco. - Ebola Screening: : Patient negative for fever greater than or equal to 101.5 degrees Fahrenheit, and additional compatible Ebola Virus Disease symptoms Patient denies exposure to infectious person Patient denies travel to an Ebola-affected area in the 21 days before illness onset No symptoms or risks identified at this time. Screenin:26 Abuse screen: Denies threats or abuse. Nutritional screening: No deficits noted. On. la1 Tuberculosis screening: No symptoms or risk factors identified. Fall Risk None identified. Assessment: 19:25 General: Appears in no apparent distress. Behavior is calm, cooperative. 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 Gait is steady, Speech is normal, Facial symmetry appears normal, Pupils are PERRLA. Cardiovascular: Capillary refill < 3 seconds Patient's skin is warm and dry. Respiratory: Airway is patent Respiratory effort is even, labored, Breath sounds are clear Breath sounds are coarse. GI: No signs and/or symptoms were reported involving the gastrointestinal system. : No signs and/or symptoms were reported regarding the genitourinary system. Vital Signs: 18:39 BP 147 / 82; Pulse 80; Resp 16; Temp 98.8; Pulse Ox 97% on R/A; Weight 121.11 kg; ch Height 6 ft. 3 in. (190.50 cm); Pain 8/10; 18:39 Body Mass Index 33.37 (121.11 kg, 190.50 cm) ED Course: 18:30 Patient arrived in ED. as 18:39 Triage completed. 18:39 Arm band placed on left wrist. Patient placed in an exam room, on a stretcher. 18:43 Drashan Rodgers RN is Primary Nurse. la1 18:53 Connor John PA is PHCP. [facility] 18:53 Chito Vaughan MD is Attending Physician. [facility] 19:26 Call light in reach. la1 19:26 No provider procedures requiring assistance completed. la1 19:43 Patient did not have IV access during this emergency room visit. la1 Administered Medications: 19:24 Drug: Ketorolac 30 mg Route: IM; Site: left gluteus; la1 19:42 Follow up: Response: No adverse reaction; Pain is decreased la1 19:24 Drug: Flexeril 10 mg Route: PO; la1 19:43 Follow up: Response: No adverse reaction la1 Outcome: 19:38 Discharge ordered by . [facility] 19:43 Discharged to home ambulatory. la1 19:43 Condition: stable 19:43 Discharge instructions given to patient, Instructed on discharge instructions, follow up and referral plans. medication usage, Demonstrated understanding of instructions, follow-up care, medications, Prescriptions given X 2. 19:49 Patient left the ED. rv Signatures: Lorena Mota RN RN Connor John PA PA jmm Martinez, Amelia as Attema, Lee, RN RN la1 Hernan Ramirez RN RN rv Corrections: (The following items were deleted from the chart) 18:39 18:38 Presenting complaint: [facility]
--- NOTE | 2018-09-01 19:39 | EDPHYS ---
Physician Documentation [facility] Name: Juan Calabrese Age: 47 yrs Sex: Male : 1970 Arrival Date: 09/01/2018 Time: 18:30 Bed 23 Private MD: Chito Alcocer HPI: 09/01 18:54 This 47 yrs old Male presents to ER via Ambulatory with complaints of Low Back jmm Pain. 18:54 The patient presents with pain that is acute. The symptoms are located in the low back. jmm The pain does not radiate. Onset: The symptoms/episode began/occurred today. Modifying factors: The patient symptoms are alleviated by OTC meds, NSAID, the patient symptoms are aggravated by movement. Associated signs and symptoms: Pertinent negatives: fever, headache, hematuria, incontinence, nausea, numbness, tingling, urinary retention. Symptoms developed after lifting moving boxes. Denies radiation of pain. Historical: - Allergies: 18:39 No Known Allergies; ch - PMHx: 18:39 None; ch - PSHx: 18:39 None; ch - Immunization history:: Adult Immunizations up to date, Flu vaccine is not up to date. - Social history:: Smoking status: Patient/guardian denies using tobacco. - Ebola Screening: : Patient negative for fever greater than or equal to 101.5 degrees Fahrenheit, and additional compatible Ebola Virus Disease symptoms Patient denies exposure to infectious person Patient denies travel to an Ebola-affected area in the 21 days before illness onset No symptoms or risks identified at this time. ROS: 18:54 Constitutional: Negative for fever, chills, and weight loss, Cardiovascular: Negative jmm for chest pain, palpitations, and edema, Respiratory: Negative for shortness of breath, cough, wheezing, and pleuritic chest pain. 18:54 Back: Positive for pain at rest, pain with movement. 18:54 Neuro: Negative for numbness, weakness. 18:54 All other systems are negative. Exam: 18:54 Constitutional: This is a well developed, well nourished patient who is awake, alert, jmm and in no acute distress. Head/Face: atraumatic. Eyes: EOMI, no conjunctival erythema appreciated ENT: Moist Mucus Membranes Neck: Trachea midline, Supple Chest/axilla: Normal chest wall appearance and motion. Cardiovascular: Regular rate and rhythm. No edema appreciated Respiratory: Normal respirations, no respiratory distress appreciated Abdomen/GI: Non distended, soft 18:54 Abdomen/GI: Inspection: abdomen appears normal. 18:54 Back: pain, is absent, ROM is painful, normal spinal alignment noted. 18:54 Musculoskeletal/extremity: ROM: intact in all extremities. 18:54 Skin: Appearance: Color: normal in color. 18:54 Neuro: Orientation: is normal, Mentation: is normal, Memory: is normal. 18:54 Psych: Behavior/mood is pleasant, cooperative. Vital Signs: 18:39 BP 147 / 82; Pulse 80; Resp 16; Temp 98.8; Pulse Ox 97% on R/A; Weight 121.11 kg; ch Height 6 ft. 3 in. (190.50 cm); Pain 8/10; 18:39 Body Mass Index 33.37 (121.11 kg, 190.50 cm) ch MDM: 18:54 Patient medically screened. [facility] 19:35 Data reviewed: vital signs, nurses notes. Data interpreted: Pulse oximetry: on room [facility] air. Counseling: I had a detailed discussion with the patient and/or guardian regarding: the historical points, exam findings, and any diagnostic results supporting the discharge/admit diagnosis, the need for outpatient follow up, to return to the emergency department if symptoms worsen or persist or if there are any questions or concerns that arise at home. 19:35 ED course: Symptoms appear consistent with sprain. i do not suspect cord compression. [facility] Symptoms are alleviated in the ED. . Administered Medications: 19:24 Drug: Ketorolac 30 mg Route: IM; Site: left gluteus; la1 19:42 Follow up: Response: No adverse reaction; Pain is decreased la1 19:24 Drug: Flexeril 10 mg Route: PO; la1 19:43 Follow up: Response: No adverse reaction la1 Disposition: 09/01/18 19:38 Discharged to Home. Impression: Sprain of ligaments of lumbar spine. - Condition is Stable. - Discharge Instructions: Back Pain, Adult. - Prescriptions for Ibuprofen 800 mg Oral Tablet - take 1 tablet by ORAL route every 8 hours As needed take with food; 30 tablet. Zanaflex 4 mg Oral Tablet - take 1 tablet by ORAL route every 8 hours As needed; 20 tablet. - Medication Reconciliation Form, Thank You Letter, Antibiotic Education, Prescription Opioid Use form. - Follow up: Private Physician; When: 2 - 3 days; Reason: Recheck today's complaints, Continuance of care, Re-evaluation by your physician. Addendum: 09/03/2018 09:28 Co-signature as Attending Physician, Chito Vaughan MD I agree with the assessment and c lemons plan of care. Signatures: Lorena Mota, RN Chito Nolasco ch, MD MD cha Mickail, Joel, PA PA jmm Attema, Lee RN RN la1 Hernan Ramirez RN RN rv Corrections: (The following items were deleted from the chart) 09/01 19:49 19:38 09/01/2018 19:38 Discharged to Home. Impression: Sprain of ligaments of lumbar rv spine. Condition is Stable. Forms are Medication Reconciliation Form, Thank You Letter, Antibiotic Education, Prescription Opioid Use. Follow up: Private Physician; When: 2 - 3 days; Reason: Recheck today's complaints, Continuance of care, Re-evaluation by your physician. britney
== END 2018-09-01 19:49 | disposition home or self-care (01) ==
LOC: ER 18:29
DX: S33.5XXA Sprain of ligaments of lumbar spine, initial encounter (principal); X50.9XXA Other and unspecified overexertion or strenuous movements or postures, initial encounter; Y93.89 Activity, other specified; Y92.9 Unspecified place or not applicable
CPT/HCPCS: 96372; 99283

== ENCOUNTER 2019-05-17 18:30 | Emergency (ER) | payer SELFPAY ==
--- OUTSIDE RECORDS SUMMARY | 2019-05-17 18:32 | XMS REPORT ---
:1970 [facility] Address [address] [place] [address] [address]. [address] [place] [address] Care Team Providers Name Role Phone Unavailable Unavailable Unavailable Problems This patient has no known problems. Allergies, Adverse Reactions, Alerts This patient has no known allergies or adverse reactions. Medications This patient has no known medications. Encounters Start End Encounter Admission Attending Care Care Encounter Date/Time Date/Time Type Type Clinicians Facility Department ID 2019-01-16 2019-01-16 Emergency E [facility] [id number] 11:56:00 11:56:00
[2019-05-17] MEDS ORDERED: NA CHLORIDE 0.9% 1,000 ML ONE (19:09)
[2019-05-17] MEDS ORDERED: MORPHINE 4 MG/ML SYR ONE (19:09)
[2019-05-17] MEDS ORDERED: ONDANSETRON 4 MG/2 ML VIAL ONE (19:09)
[2019-05-17 19:24] LABS: Absolute Lymphocytes (CBC) 1.7 K/uL (0.7-4.9); Basophils % 0.3 % (0-1.3); Hematocrit 47.3 % (39.6-49.0); Lymphocytes % 24.9 % (15.3-44.8); MPV 8.8 fL (7.6-11.3); RBC Red Blood Cell Count 5.15 M/uL (4.33-5.43)
[2019-05-17 20:27] LABS: BUN Blood Urea Nitrogen 15 mg/dL (7-18); Bicarbonate 32 mmol/L (21-32); Glucose Level 99 mg/dL (74-106); Potassium 4.1 mmol/L (3.5-5.1); Sodium Level 142 mmol/L (136-145)
--- NOTE | 2019-05-17 22:16 | ER ---
Nurse's Notes [facility] Name: Juan Calabrese Age: 48 yrs Sex: Male : 1970 Arrival Date: 05/17/2019 Time: 18:32 Bed 19 Private MD: Diagnosis: Diarrhea, unspecified;Lower abdominal pain, unspecified Presentation: 05/17 18:33 Presenting complaint: Patient states: lower abd pain/diarrhea x 2 days. c/o urinary sv problems. Transition of care: patient was not received from another setting of care. Onset of symptoms was May 15, 2019. Care prior to arrival: None. 18:33 Method Of Arrival: Ambulatory sv 18:33 Acuity: GUERA 3 sv 18:35 Note Spouse states she was treated for Cdiff earlier this month and was treated with sv abx and finished those around 05/02/19. 18:48 Risk Assessment: Do you want to hurt yourself or someone else? Patient reports no em desire to harm self or others. Initial Sepsis Screen: Does the patient meet any 2 criteria? No. Patient's initial sepsis screen is negative. Does the patient have a suspected source of infection? No. Patient's initial sepsis screen is negative. Historical: - Allergies: 18:34 No Known Drug Allergies; sv - Immunization history:: Adult Immunizations up to date. - Social history:: Smoking status: Patient/guardian denies using tobacco. - Ebola Screening: : Patient negative for fever greater than or equal to 101.5 degrees Fahrenheit, and additional compatible Ebola Virus Disease symptoms Patient denies exposure to infectious person Patient denies travel to an Ebola-affected area in the 21 days before illness onset No symptoms or risks identified at this time. Screenin:48 Abuse screen: Denies threats or abuse. Nutritional screening: No deficits noted. em Tuberculosis screening: No symptoms or risk factors identified. Fall Risk None identified. Assessment: 19:33 General: Appears in no apparent distress. Behavior is calm, cooperative, appropriate wh for age. Pain: Complains of pain in right lower quadrant and left lower quadrant Pain does not radiate. Pain currently is 7 out of 10 on a pain scale. Pain began 1 day ago. Pain: Quality of pain is described as crampy. Neuro: Level of Consciousness is awake, alert, obeys commands, Oriented to person, place, time, situation, Appropriate for age. Cardiovascular: Heart tones S1 S2. Respiratory: Airway is patent Respiratory effort is even, unlabored, Respiratory pattern is regular, symmetrical. GI: Abdomen is flat, non-distended, Bowel sounds present X 4 quads. Abd is soft and non tender Reports diarrhea. : No signs and/or symptoms were reported regarding the genitourinary system. EENT: No signs and/or symptoms were reported regarding the EENT system. Derm: Skin is intact, is healthy with good turgor, Skin is pink, warm \T\ dry. normal. Musculoskeletal: Circulation, motion, and sensation intact. 20:25 Reassessment: Patient appears in no apparent distress at this time. No changes from previously documented assessment. Patient and/or family updated on plan of care and expected duration. Pain level reassessed. Patient is alert, oriented x 3, equal unlabored respirations, skin warm/dry/pink. 21:23 Reassessment: Patient appears in no apparent distress at this time. No changes from previously documented assessment. Patient and/or family updated on plan of care and expected duration. Pain level reassessed. Patient is alert, oriented x 3, equal unlabored respirations, skin warm/dry/pink. 22:33 Reassessment: Patient appears in no apparent distress at this time. No changes from previously documented assessment. Patient and/or family updated on plan of care and expected duration. Pain level reassessed. Patient is alert, oriented x 3, equal unlabored respirations, skin warm/dry/pink. Patient denies pain at this time. Patient states feeling better. Patient states symptoms have improved. Vital Signs: 18:34 BP 139 / 81; Pulse 67; Resp 16; Temp 98.5(O); Pulse Ox 98% ; Weight 122.47 kg; Height 6 sv ft. 3 in. (190.50 cm); Pain 7/10; 19:35 BP 139 / 83; Pulse 66; Resp 18; Pulse Ox 97% on R/A; wh 20:30 BP 130 / 79; Pulse 67; Resp 18; Pulse Ox 100% ; wh 21:24 BP 124 / 84; Pulse 59; Resp 16; Pulse Ox 99% on R/A; wh 22:34 BP 104 / 58; Pulse 61; Resp 18; Pulse Ox 100% ; wh 18:34 Body Mass Index 33.75 (122.47 kg, 190.50 cm) sv ED Course: 18:32 Patient arrived in ED. mr 18:34 Triage completed. sv 18:36 Arm band placed on. sv 18:41 Freedom Olson LVN is Primary Nurse. em 18:44 Yumiko Rangel FNP-C is PHCP. kb 18:44 Paul Crowe MD is Attending Physician. kb 18:48 Patient has correct armband on for positive identification. Placed in gown. Bed in low em position. Call light in reach. Pulse ox on. NIBP on. 19:20 Inserted saline lock: 20 gauge in right antecubital area, using aseptic technique. oe Blood collected. 19:49 Radiology exam delayed due to lab results not completed at this time. (BUN/Creatinine). 2 20:04 Radiology exam delayed due to lab results not completed at this time. (BUN/Creatinine). ne 20:22 Radiology exam delayed due to lab results not completed at this time. (BUN/Creatinine). ne 20:46 CT Abd/Pelvis - IV Contrast Only In Process Unspecified. EDMS 22:35 No provider procedures requiring assistance completed. IV discontinued, intact, bleeding controlled, No redness/swelling at site. Administered Medications: 19:15 Drug: NS 0.9% 1000 ml Route: IV; Rate: 1000 ml; Site: right antecubital; 22:37 Follow up: Response: No adverse reaction; IV Status: Completed infusion 19:17 Drug: Zofran 4 mg Route: IVP; Site: right antecubital; 22:35 Follow up: Response: No adverse reaction; Nausea is decreased 19:19 Drug: morphine 4 mg {Note: RASS 0.} Route: IVP; Site: right antecubital; 22:34 Follow up: Response: No adverse reaction; Pain is decreased; RASS: Alert and Calm (0) Outcome: 22:15 Discharge ordered by . kb 22:35 Discharged to home ambulatory, with family. 22:35 Condition: stable 22:35 Discharge instructions given to patient, family, Instructed on discharge instructions, follow up and referral plans. medication usage, POC Abdominal Pain Demonstrated understanding of instructions, follow-up care, medications, POC Prescriptions given X 1. 22:36 Patient left the ED. Signatures: Dispatcher [employer] EDMS Juan Carlos, Yumiko, EQUIPMENT MAINTENANCE SUPERINTENDENT-C EQUIPMENT MAINTENANCE SUPERINTENDENT-CkTanvi Lawrence, RN RN sv Amador, Mally mr Olson, Freedom, SILK HANGER SILK HANGER Partha Sanchez Orlando oe McGuire, [facility] Lucius Walsh Corrections: (The following items were deleted from the chart) 18:36 18:33 Presenting complaint: Patient states: lower abd pain/diarrhea x 2 days. c/o sv urinary problems sv 18:36 18:34 Temp 98.5F Oral; sv sv
--- NOTE | 2019-05-17 22:16 | EDPHYS ---
Physician Documentation [facility] Name: Juan Calabrese Age: 48 yrs Sex: Male : 1970 Arrival Date: 05/17/2019 Time: 18:32 Bed 19 Private MD: ED Physician Paul Crowe HPI: 05/17 20:39 This 48 yrs old Male presents to ER via Ambulatory with complaints of kb Abdominal Pain, Diarrhea. 20:39 The patient presents with abdominal pain in the left lower quadrant. Onset: The kb symptoms/episode began/occurred 2 day(s) ago. The symptoms do not radiate. Associated signs and symptoms: Pertinent positives: diarrhea. The symptoms are described as constant. Modifying factors: The symptoms are alleviated by nothing, the symptoms are aggravated by nothing. Severity of pain: At its worst the pain was mild moderate in the emergency department the pain is unchanged. The patient has not experienced similar symptoms in the past. The patient has not recently seen a physician. Pt reports diarrhea and LLQ pain for 2 days. Reports this has happened in the past but resolved on its own. Has never had it checked out before. Historical: - Allergies: 18:34 No Known Drug Allergies; sv - Immunization history:: Adult Immunizations up to date. - Social history:: Smoking status: Patient/guardian denies using tobacco. - Ebola Screening: : Patient negative for fever greater than or equal to 101.5 degrees Fahrenheit, and additional compatible Ebola Virus Disease symptoms Patient denies exposure to infectious person Patient denies travel to an Ebola-affected area in the 21 days before illness onset No symptoms or risks identified at this time. ROS: 20:39 Constitutional: Negative for fever, chills, and weight loss, Neck: Negative for injury, kb pain, and swelling, Cardiovascular: Negative for chest pain, palpitations, and edema, Respiratory: Negative for shortness of breath, cough, wheezing, and pleuritic chest pain, Back: Negative for injury and pain, : Negative for injury, bleeding, discharge, and swelling, MS/Extremity: Negative for injury and deformity, Skin: Negative for injury, rash, and discoloration, Neuro: Negative for headache, weakness, numbness, tingling, and seizure. 20:39 Abdomen/GI: Positive for abdominal pain, diarrhea, Negative for nausea and vomiting, constipation, abdominal cramps, abdominal distension, anorexia. Exam: 20:39 Constitutional: This is a well developed, well nourished patient who is awake, alert, kb and in no acute distress. Head/Face: Normocephalic, atraumatic. Neck: Trachea midline, no thyromegaly or masses palpated, and no cervical lymphadenopathy. Supple, full range of motion without nuchal rigidity, or vertebral point tenderness. No Meningismus. Chest/axilla: Normal chest wall appearance and motion. Nontender with no deformity. No lesions are appreciated. Cardiovascular: Regular rate and rhythm with a normal S1 and S2. No gallops, murmurs, or rubs. Normal PMI, no JVD. No pulse deficits. Respiratory: Lungs have equal breath sounds bilaterally, clear to auscultation and percussion. No rales, rhonchi or wheezes noted. No increased work of breathing, no retractions or nasal flaring. Back: No spinal tenderness. No costovertebral tenderness. Full range of motion. Skin: Warm, dry with normal turgor. Normal color with no rashes, no lesions, and no evidence of cellulitis. MS/ Extremity: Pulses equal, no cyanosis. Neurovascular intact. Full, normal range of motion. Neuro: Awake and alert, GCS 15, oriented to person, place, time, and situation. Cranial nerves II-XII grossly intact. Motor strength 5/5 in all extremities. Sensory grossly intact. Cerebellar exam normal. Normal gait. 20:39 Abdomen/GI: Inspection: abdomen appears normal, Bowel sounds: normal, in all quadrants, Palpation: soft, in all quadrants, mild abdominal tenderness, in the left lower quadrant. Vital Signs: 18:34 BP 139 / 81; Pulse 67; Resp 16; Temp 98.5(O); Pulse Ox 98% ; Weight 122.47 kg; Height 6 sv ft. 3 in. (190.50 cm); Pain 7/10; 19:35 BP 139 / 83; Pulse 66; Resp 18; Pulse Ox 97% on R/A; wh 20:30 BP 130 / 79; Pulse 67; Resp 18; Pulse Ox 100% ; wh 21:24 BP 124 / 84; Pulse 59; Resp 16; Pulse Ox 99% on R/A; wh 22:34 BP 104 / 58; Pulse 61; Resp 18; Pulse Ox 100% ; wh 18:34 Body Mass Index 33.75 (122.47 kg, 190.50 cm) sv MDM: 18:44 Patient medically screened. kb 20:41 Data reviewed: vital signs, nurses notes. Data interpreted: Pulse oximetry: on room air kb is 97 %. Interpretation: normal. 22:14 Counseling: I had a detailed discussion with the patient and/or guardian regarding: the kb historical points, exam findings, and any diagnostic results supporting the discharge/admit diagnosis, lab results, radiology results, the need for outpatient follow up, a family practitioner, to return to the emergency department if symptoms worsen or persist or if there are any questions or concerns that arise at home. 05/17 18:57 Order name: Basic Metabolic Panel; Complete Time: 20:31 kb 05/17 18:57 Order name: CBC with Diff; Complete Time: 19:30 kb 05/17 18:57 Order name: CT Abd/Pelvis - IV Contrast Only 05/17 18:57 Order name: IV Saline Lock; Complete Time: 19:24 kb 05/17 18:57 Order name: Labs collected and sent; Complete Time: 19:24 kb Administered Medications: 19:15 Drug: NS 0.9% 1000 ml Route: IV; Rate: 1000 ml; Site: right antecubital; 22:37 Follow up: Response: No adverse reaction; IV Status: Completed infusion 19:17 Drug: Zofran 4 mg Route: IVP; Site: right antecubital; 22:35 Follow up: Response: No adverse reaction; Nausea is decreased 19:19 Drug: morphine 4 mg {Note: RASS 0.} Route: IVP; Site: right antecubital; 22:34 Follow up: Response: No adverse reaction; Pain is decreased; RASS: Alert and Calm (0) Disposition: 05/18 07:25 Co-signature as Attending Physician, Paul Crowe MD I agree with the assessment and kdr plan of care. Disposition: 05/17/19 22:15 Discharged to Home. Impression: Diarrhea, unspecified, Lower abdominal pain, unspecified. - Condition is Stable. - Discharge Instructions: Abdominal Pain, Adult, [id number]. - Prescriptions for Bentyl 20 mg Oral Tablet - take 1 tablet by ORAL route every 6 hours As needed; 20 tablet. - Medication Reconciliation Form, Thank You Letter, Antibiotic Education, Prescription Opioid Use, Work release form form. - Follow up: Emergency Department; When: As needed; Reason: Worsening of condition. Follow up: Private Physician; When: 2 - 3 days; Reason: Recheck today's complaints, Continuance of care, Re-evaluation by your physician. Signatures: Dispatcher [employer] EDYumiko Tamayo, WENDY FREELANCE WRITER-Tanvi Murphy RN RN Paul Horner MD MD [facility] Freedom Olson, RESIDENTIAL ROOFER RESIDENTIAL ROOFER Lucius Walsh Corrections: (The following items were deleted from the chart) 05/17 22:36 22:15 05/17/2019 22:15 Discharged to Home. Impression: Diarrhea, unspecified; Lower wh abdominal pain, unspecified. Condition is Stable. Forms are Medication Reconciliation Form, Thank You Letter, Antibiotic Education, Prescription Opioid Use. Follow up: Emergency Department; When: As needed; Reason: Worsening of condition. Follow up: Private Physician; When: 2 - 3 days; Reason: Recheck today's complaints, Continuance of care, Re-evaluation by your physician. kb
[2019-05-17 22:42] VITALS: TEMP 98.5
[2019-05-17 22:47] VITALS: BP 104/58; O2SAT 100
--- NOTE | 2019-05-20 14:15 | RAD REPORT ---
EXAM DESCRIPTION: Abdomen Pelvis W Contrast CLINICAL HISTORY: ABD PAIN TECHNIQUE: Contiguous axial images obtained through the abdomen and pelvis following the uneventful administration of IV contrast. Coronal and sagittal reformatted images were provided. This exam was performed according to our departmental dose-optimization program, which includes autom ated exposure control, adjustment of the mA and/or kV according to patient size and/or use of iterati ve reconstruction technique. COMPARISON: 06/14/2017 FINDINGS: Lung bases: Clear Liver: Unremarkable Gallbladder and biliary system: Unremarkable Pancreas: Unremarkable Spleen: Unremarkable Adrenals: Stable 1.2 cm low density right adrenal nodule most compatible with a benign adrenal adenom a. Kidneys: Normal renal cortical enhancement. 6 mm left renal cortical hypodensity which is too small t o characterize. Small parapelvic cysts on the left. No calculi. No hydronephrosis. Bowel: Moderate stool. No obstruction. No appreciable mucosal thickening. Appendix: Normal caliber appendix. No findings to suggest acute appendicitis. Urinary bladder: The urinary bladder is decompressed. Reproductive: Unremarkable as visualized Lymph nodes: No pathologically enlarged lymph nodes. Peritoneum: No focal fluid collection. No free air. Vessels: No abdominal aortic aneurysm. Abdominal wall: Tiny fat-containing umbilical hernia. Small fat-containing left inguinal hernia. Bones: Multilevel spondylosis. No acute fracture. IMPRESSION: 1. No acute inflammatory process identified within the abdomen and pelvis. 2. Other findings as above. Electronically signed by: Leyla Alonzo MD 05/17/2019 10:02 PM MACHINE JOINT CUTTER Due to temporary technical issues with the PACS/Fluency reporting system, reports are being signed by the in house radiologist as a courtesy to ensure prompt reporting. The interpreting radiologist is f ully responsible for the content of the report.
== END 2019-05-17 22:36 | disposition home or self-care (01) ==
LOC: ER 18:30
DX: R19.7 Diarrhea, unspecified (principal)
CPT/HCPCS: 36415; 74177; 80048; 85025; 96361; 96374; 96375; 99284; J2405; J7030; Q9967

== ENCOUNTER 2020-03-24 20:39 | Emergency (ER) | payer SELFPAY ==
--- OUTSIDE RECORDS SUMMARY | 2020-03-24 20:41 | XMS REPORT | Continuity of Care Document ---
:1970 Author Organization [facility] t Address [address] [place] [address] [address]. [address] [place] [address] Care Team Providers Name Role Phone Unavailable Unavailable Unavailable Problems This patient has no known problems. Allergies, Adverse Reactions, Alerts This patient has no known allergies or adverse reactions. Medications This patient has no known medications. Procedures This patient has no known procedures. Encounters Start End Encounter Admission Attending Care Care Encounter Source Date/Time Date/Time Type Type Clinicians Facility Department ID 2019-01-16 2019-01-16 Emergency E [facility] BL [id number] BL 11:56:00 11:56:00 Results This patient has no known results.
[2020-03-24] MEDS ORDERED: MEPERIDINE HCL 50 MG/ML ONE (21:06)
[2020-03-24] MEDS ORDERED: dexAMETHasone 4 MG/ML VIAL ONE (21:08)
--- NOTE | 2020-03-24 21:20 | RAD REPORT ---
EXAM DESCRIPTION: CT - Spine Lumbar Wo Con - 03/24/2020 9:09 pm CLINICAL HISTORY: Radiculopathy. LOWER BACK PAIN COMPARISON: No comparisons TECHNIQUE: Axial noncontrast CT imaging of the lumbar spine was performed with coronal and sagittal re-formatted images. All CT scans are performed using dose optimization technique as appropriate and may include automated exposure control or mA/KV adjustment according to patient size. FINDINGS: No acute lumbar spine fracture seen. No aggressive marrow pattern or malalignment. Paraspinal tissues are normal in thickness. No paraspinal abscess or hematoma seen. Mild posterior disc bulge is present throughout the lumbar spine. Mild facet hypertrophy is present i nvolving the lower lumbar levels. Mild to moderate central canal stenosis suspected L5-S1. IMPRESSION: No acute lumbar spine abnormality. Mild to moderate lower lumbar spondylosis.
--- NOTE | 2020-03-24 21:32 | ER ---
Nurse's Notes [facility] Name: Juan Calabrese Age: 49 yrs Sex: Male : 1970 Arrival Date: 03/24/2020 Time: 20:40 Bed 16 Private MD: Diagnosis: Low back pain;Other intervertebral disc disorders, lumbar region Presentation: 03/24 20:51 Chief complaint: Patient states: At the gym, before start of workout, bent over then ca1 started hurting on the lower back. Sharp pain with repositioning. Previous history of lower back pains but this time is worse. Pain is non-radiating. Pain scale at worse 10/10. Denies injury to the back. Denies fall. Coronavirus screen: Client denies travel out of the [place] in the last 14 days. At this time, the client does not indicate any symptoms associated with coronavirus-19. Ebola Screen: Patient negative for fever greater than or equal to 101.5 degrees Fahrenheit, and additional compatible Ebola Virus Disease symptoms Patient denies exposure to infectious person. Patient denies travel to an Ebola-affected area in the 21 days before illness onset. No symptoms or risks identified at this time. Initial Sepsis Screen: Does the patient meet any 2 criteria? No. Patient's initial sepsis screen is negative. Does the patient have a suspected source of infection? No. Patient's initial sepsis screen is negative. Risk Assessment: Do you want to hurt yourself or someone else? Patient reports no desire to harm self or others. Onset of symptoms was March 24, 2020. 20:51 Method Of Arrival: Wheelchair ca1 20:51 Acuity: GUERA 4 ca1 Historical: - Allergies: 20:55 No Known Allergies; ca1 - Home Meds: 20:55 None [Active]; ca1 - PMHx: 20:55 None; ca1 - PSHx: 20:55 None; ca1 - Immunization history:: Adult Immunizations up to date. - Social history:: Smoking status: Patient denies any tobacco usage or history of. - Family history:: not pertinent. - Hospitalizations: : No recent hospitalization is reported. Screenin:14 Abuse screen: Denies threats or abuse. Nutritional screening: No deficits noted. ll2 Tuberculosis screening: No symptoms or risk factors identified. Fall Risk IV access (20 points). Ambulatory Aid- Furniture (30 pts.). Gait- Normal/Bed Rest/Wheelchair (0 pts) Mental Status- Oriented to own ability (0 pts). Total Caruso Fall Scale indicates High Risk Score (45 or more points). Fall prevention measures have been instituted. Side Rails Up X 2 Family Present and informed to notify staff if the need to leave the bedside. Assessment: 21:12 General: Appears in no apparent distress. Behavior is calm, cooperative, appropriate ll2 for age. Pain: Complains of pain in lumbar area Pain at worst was 10 out of 10 on a pain scale. Quality of pain is described as sharp, shooting. Neuro: Level of Consciousness is awake, alert, obeys commands, Oriented to person, place, time, situation. Cardiovascular: Capillary refill < 3 seconds Patient's skin is warm and dry. Respiratory: Airway is patent Respiratory effort is even, unlabored, Respiratory pattern is regular, symmetrical. GI: No signs and/or symptoms were reported involving the gastrointestinal system. : No signs and/or symptoms were reported regarding the genitourinary system. EENT: No signs and/or symptoms were reported regarding the EENT system. Derm: Skin is intact, is healthy with good turgor, Skin is dry, Skin is pink, warm \T\ dry. Skin temperature is warm. Musculoskeletal: Circulation, motion, and sensation intact. Range of motion: intact in all extremities. Vital Signs: 20:51 BP 134 / 76; Pulse 71; Resp 16 S; Temp 98.1(TE); Pulse Ox 98% on R/A; Weight 124.74 kg ca1 (R); Height 6 ft. 3 in. (190.50 cm) (R); Pain 10/10; 21:13 BP 134 / 76; Pulse 66; Resp 16; Temp 98; Pulse Ox 97% on R/A; ll2 20:51 Body Mass Index 34.37 (124.74 kg, 190.50 cm) ca1 ED Course: 20:40 Patient arrived in ED. am2 20:41 Devin Link MD is Attending Physician. rn 20:45 Amelia Bhardwaj RN is Primary Nurse. ll2 20:54 Triage completed. ca1 20:55 Arm band placed on right wrist. ca1 21:00 Inserted saline lock: 20 gauge in left hand, using aseptic technique. dh4 21:09 CT Lumbar Spine Wo Con In Process Unspecified. EDMS 21:18 Patient has correct armband on for positive identification. Bed in low position. Call ll2 light in reach. Side rails up X 1. 22:01 No provider procedures requiring assistance completed. IV discontinued, intact, ll2 bleeding controlled, No redness/swelling at site. Pressure dressing applied. Administered Medications: 21:01 Drug: Demerol 25 mg Route: IVP; Site: left hand; ll2 21:17 Follow up: Response: No adverse reaction; Pain is decreased; RASS: Alert and Calm (0) ll2 21:02 Drug: Decadron - Dexamethasone 10 mg Route: IVP; Site: left hand; ll2 21:17 Follow up: Response: No adverse reaction ll2 21:42 Drug: TORadol - Ketorolac 15 mg Route: IVP; Site: left hand; ll2 22:02 Follow up: Response: No adverse reaction ll2 Outcome: 21:31 Discharge ordered by . rn 22:00 Discharged to home via wheelchair. ll2 22:00 Condition: stable 22:00 Discharge instructions given to patient, Instructed on discharge instructions, follow up and referral plans. medication usage, Demonstrated understanding of instructions, follow-up care, medications, Prescriptions given X 3. 22:01 Patient left the ED. ll2 Signatures: Dispatcher [employer] EDMS Devin Link MD MD rn Moreno, Amanda 2 Gabriela Santana RN RN ca1 Huhn, Donald 4 Amelia Bhardwaj RN RN 2
--- NOTE | 2020-03-24 21:33 | EDPHYS ---
Physician Documentation [facility] Name: Juan Calabrese Age: 49 yrs Sex: Male : 1970 Arrival Date: 03/24/2020 Time: 20:40 Bed 16 Private MD: ED Physician Devin Link HPI: 03/24 20:50 This 49 yrs old Male presents to ER via Unassigned with complaints of lower rn back pain. 20:50 The patient presents with pain that is acute. The symptoms are located in the low back. rn The pain does not radiate. Onset: The symptoms/episode began/occurred just prior to arrival. Modifying factors: The patient symptoms are alleviated by remaining still, the patient symptoms are aggravated by any movement, bending. Severity of symptoms: At their worst the symptoms were moderate, in the emergency department the symptoms have improved. The patient has experienced similar episodes in the past. The patient has not recently seen a physician. Reports has had this several times in past, usually squatting or lifting weights makes it worse, today didn't even lift weights, moved a bench over and felt lower back pain. No radiation. No weakness. No numbness/tingling. No direct trauma or fall. No rectal pain/diarrhea/fever. . Historical: - Allergies: 20:55 No Known Allergies; ca1 - Home Meds: 20:55 None [Active]; ca1 - PMHx: 20:55 None; ca1 - PSHx: 20:55 None; ca1 - Immunization history:: Adult Immunizations up to date. - Social history:: Smoking status: Patient denies any tobacco usage or history of. - Family history:: not pertinent. - Hospitalizations: : No recent hospitalization is reported. ROS: 20:50 Constitutional: Negative for fever, chills, and weight loss, Cardiovascular: Negative rn for chest pain, palpitations, and edema, Respiratory: Negative for shortness of breath, cough, wheezing, and pleuritic chest pain, Abdomen/GI: Negative for abdominal pain, nausea, vomiting, diarrhea, and constipation, Back: + lower back pain : Negative for injury, bleeding, discharge, and swelling, MS/Extremity: Negative for injury and deformity, Skin: Negative for injury, rash, and discoloration, Neuro: Negative for headache, weakness, numbness, tingling, and seizure. Exam: 20:50 Constitutional: This is a well developed, well nourished patient who is awake, alert, rn wheeled to room, able to get into bed with some assistance, antalgic gait. Head/Face: Normocephalic, atraumatic. Cardiovascular: Regular rate and rhythm. No pulse deficits. Respiratory: Speaking full sentences, unlabored. Abdomen/GI: soft, non-tender, non-distended Back: + lower lumbar perispinal tenderness, no discoloration or evidence of trauma. Skin: Warm, dry with normal turgor. Normal color with no rashes, no lesions, and no evidence of cellulitis. MS/ Extremity: Pulses equal, no cyanosis. Neurovascular intact. Full, normal range of motion. Equal circumference. Neuro: Awake and alert, GCS 15, oriented to person, place, time, and situation. Cranial nerves II-XII grossly intact. Motor strength 5/5 in all extremities. Sensory grossly intact. Cerebellar exam normal. Antalgic gait. Vital Signs: 20:51 BP 134 / 76; Pulse 71; Resp 16 S; Temp 98.1(TE); Pulse Ox 98% on R/A; Weight 124.74 kg ca1 (R); Height 6 ft. 3 in. (190.50 cm) (R); Pain 10/10; 21:13 BP 134 / 76; Pulse 66; Resp 16; Temp 98; Pulse Ox 97% on R/A; ll2 20:51 Body Mass Index 34.37 (124.74 kg, 190.50 cm) ca1 MDM: 20:41 Patient medically screened. rn 21:29 Differential diagnosis: strain, Herniated disc bulging disc, muscle spasm. Data rn reviewed: vital signs, nurses notes, radiologic studies, CT scan, and as a result, I will discharge patient. Counseling: I had a detailed discussion with the patient and/or guardian regarding: the historical points, exam findings, and any diagnostic results supporting the discharge/admit diagnosis, radiology results, the need for outpatient follow up, to return to the emergency department if symptoms worsen or persist or if there are any questions or concerns that arise at home. Response to treatment: the patient's symptoms have markedly improved after treatment, and as a result, I will discharge patient. Special discussion: I discussed with the patient/guardian in detail that at this point there is no indication for admission to the hospital. It is understood, however, that if the symptoms persist or worsen the patient needs to return immediately for re-evaluation. Further emergent ED testing is not indicated at this point in time. I discussed with the patient/guardian in detail the need to arrange with the PCP or specialist further outpatient testing, MRI, Based on the history and exam findings, there is no indication for further emergent testing or inpatient evaluation. I discussed with the patient/guardian the need to see the back specialist for further evaluation of the symptoms. ED course: Pt improved, states feels much better, ct shows multi-level disc problems but no sign of spinal cord compression or fracture. Will dc home with muscle relaxer, steroids, and pain medication. Return precautions given. Now he remembers maybe aggravating back last night when had to run after his little dog. . 03/24 20:50 Order name: CT Lumbar Spine Wo Con; Complete Time: 21:26 rn 03/24 20:50 Order name: IV Start; Complete Time: 21:02 rn Administered Medications: 21:01 Drug: Demerol 25 mg Route: IVP; Site: left hand; ll2 21:17 Follow up: Response: No adverse reaction; Pain is decreased; RASS: Alert and Calm (0) ll2 21:02 Drug: Decadron - Dexamethasone 10 mg Route: IVP; Site: left hand; ll2 21:17 Follow up: Response: No adverse reaction ll2 21:42 Drug: TORadol - Ketorolac 15 mg Route: IVP; Site: left hand; ll2 22:02 Follow up: Response: No adverse reaction ll2 Disposition: 03/24/20 21:31 Discharged to Home. Impression: Low back pain, Other intervertebral disc disorders, lumbar region. - Condition is Stable. - Discharge Instructions: Back Pain, Adult. - Prescriptions for Ultram 50 mg Oral Tablet - take 1 tablet by ORAL route every 6 hours As needed; 15 tablet. Cyclobenzaprine 10 mg Oral Tablet - take 1 tablet by ORAL route every 8 hours As needed; 15 tablet. Medrol (Genaro) 4 mg Oral Tablets, Dose Pack - take 1 tablet by ORAL route as directed - follow package instructions; 1 packet. - Medication Reconciliation Form, Thank You Letter, Antibiotic Education, Prescription Opioid Use form. - Follow up: Private Physician; When: As needed; Reason: Recheck today's complaints, Re-evaluation by your physician. - Problem is an acute exacerbation. - Symptoms have improved. Signatures: Dispatcher [employer] Devin Dennison MD MD rn Acob, Gabriela RN RN ca1 Amelia Bhardwaj RN RN ll2 Corrections: (The following items were deleted from the chart) 22:01 21:31 03/24/2020 21:31 Discharged to Home. Impression: Low back pain; Other ll2 intervertebral disc disorders, lumbar region. Condition is Stable. Forms are Medication Reconciliation Form, Thank You Letter, Antibiotic Education, Prescription Opioid Use. Follow up: Private Physician; When: As needed; Reason: Recheck today's complaints, Re-evaluation by your physician. Problem is an acute exacerbation. Symptoms have improved. rn
[2020-03-24] MEDS ORDERED: KETOROLAC 30 MG/ML INJ ONE (21:57)
[2020-03-24 22:06] VITALS: BP 134/76
[2020-03-24 22:07] VITALS: TEMP 98; O2SAT 97
== END 2020-03-24 22:01 | disposition home or self-care (01) ==
LOC: ER 20:39
DX: M51.86 Other intervertebral disc disorders, lumbar region (principal)
CPT/HCPCS: 72131; 96374; 96375; 99284; J1100; J2175

== ENCOUNTER 2020-06-13 04:10 | Emergency (ER) | payer SELFPAY ==
--- OUTSIDE RECORDS SUMMARY | 2020-06-13 04:12 | XMS REPORT | Continuity of Care Document ---
:1970 Author Organization [facility] t Address [address] [place] [address] [address] [place] [address] Care Team Providers Name Role Phone Unavailable [...]
[2020-06-13] MEDS ORDERED: MORPHINE 4 MG/ML SYR ONE (04:48)
[2020-06-13] MEDS ORDERED: ONDANSETRON 4 MG/2 ML VIAL ONE (04:48)
[2020-06-13] MEDS ORDERED: NA CHLORIDE 0.9% 1,000 ML ONE (04:48)
[2020-06-13 04:54] LABS: Absolute Lymphocytes (CBC) 1.9 K/uL (0.7-4.9); Basophils % 0.4 % (0-1.3); Hematocrit 41.5 % (39.6-49.0); Lymphocytes % 30.7 % (15.3-44.8); MPV 9.2 fL (7.6-11.3); RBC Red Blood Cell Count 4.61 M/uL (4.33-5.43)
[2020-06-13 05:02] LABS: Albumin 3.6 g/dL (3.4-5.0); Bilirubin Direct 0.1 mg/dL (0-0.2); Bilirubin Total 0.6 mg/dL (0.2-1.0); Potassium 3.6 mmol/L (3.5-5.1); Protein, Total 7.1 g/dL (6.4-8.2)
[2020-06-13 05:17] LABS: Urine Blood NEGATIVE (NEG); Urine Glucose NEGATIVE (NEG); Urine Protein NEGATIVE (NEG); Urine Specific Gravity 1.025 (1.005-1.030)
--- NOTE | 2020-06-13 06:30 | EDPHYS ---
Physician Documentation [facility] Name: Juan Calabrese Age: 49 yrs Sex: Male : 1970 Arrival Date: 06/13/2020 Time: 04:14 Bed 5 Private MD: ED Physician Carter Contreras HPI: 06/13 04:30 This 49 yrs old Male presents to ER via Ambulatory with complaints of mh7 Abdominal Pain. 04:30 The patient presents with abdominal pain in the lower abdomen. Onset: The mh7 symptoms/episode began/occurred last night. The symptoms do not radiate. Associated signs and symptoms: Pertinent positives: diarrhea, nausea, Pertinent negatives: anorexia, blood in stools, chest pain, constipation, dysuria, fever, headache, hematuria, palpitations, shortness of breath, testicular pain, vomiting, vomiting blood. The symptoms are described as intermittent, vague, waxing/waning. Modifying factors: The symptoms are alleviated by nothing, the symptoms are aggravated by nothing. Severity of pain: At its worst the pain was moderate last night, in the emergency department the pain is unchanged. Patient states that he ate pizza and chicken then started to have lower abdominal pain, nausea, diarrhea.. Historical: - Allergies: 04:30 No Known Drug Allergies; ea - Home Meds: 04:30 None [Active]; ea - PMHx: 04:30 None; ea - PSHx: 04:30 None; ea - Immunization history:: Adult Immunizations up to date. - Social history:: Smoking status: Patient denies any tobacco usage or history of. ROS: 04:30 Constitutional: Negative for fever, chills, and weight loss, Eyes: Negative for injury, mh7 pain, redness, and discharge, ENT: Negative for injury, pain, and discharge, Neck: Negative for injury, pain, and swelling, Cardiovascular: Negative for chest pain, palpitations, and edema, Respiratory: Negative for shortness of breath, cough, wheezing, and pleuritic chest pain, Back: Negative for injury and pain, : Negative for injury, bleeding, discharge, and swelling, MS/Extremity: Negative for injury and deformity, Skin: Negative for injury, rash, and discoloration, Neuro: Negative for headache, weakness, numbness, tingling, and seizure, Psych: Negative for depression, anxiety, suicide ideation, homicidal ideation, and hallucinations, Allergy/Immunology: Negative for hives, rash, and allergies, Endocrine: Negative for neck swelling, polydipsia, polyuria, polyphagia, and marked weight changes, Hematologic/Lymphatic: Negative for swollen nodes, abnormal bleeding, and unusual bruising. Exam: 04:30 Head/Face: Normocephalic, atraumatic. Eyes: Pupils equal round and reactive to light, mh7 extra-ocular motions intact. Lids and lashes normal. Conjunctiva and sclera are non-icteric and not injected. Cornea within normal limits. Periorbital areas with no swelling, redness, or edema. Neck: Trachea midline, no thyromegaly or masses palpated, and no cervical lymphadenopathy. Supple, full range of motion without nuchal rigidity, or vertebral point tenderness. No Meningismus. Chest/axilla: Normal chest wall appearance and motion. Nontender with no deformity. No lesions are appreciated. Cardiovascular: Regular rate and rhythm with a normal S1 and S2. No gallops, murmurs, or rubs. Normal PMI, no JVD. No pulse deficits. Respiratory: Lungs have equal breath sounds bilaterally, clear to auscultation and percussion. No rales, rhonchi or wheezes noted. No increased work of breathing, no retractions or nasal flaring. 04:30 Constitutional: The patient appears in no acute distress, alert, awake, uncomfortable. 04:30 Abdomen/GI: Inspection: obese Bowel sounds: normal, in all quadrants, Palpation: moderate abdominal tenderness, in the suprapubic area and left lower quadrant, Rectal exam: the exam is deferred, because of patient request, Indicators: McBurney's point is not tender, Silva's sign is negative, Rovsing's sign is negative, Obturator sign is negative, Psoas sign is negative, Liver: no appreciated palpable abnormalities, Hernia: not appreciated. 04:30 Back: No spinal tenderness. No costovertebral tenderness. Full range of motion. mh7 Skin: Warm, dry with normal turgor. Normal color with no rashes, no lesions, and no evidence of cellulitis. MS/ Extremity: Pulses equal, no cyanosis. Neurovascular intact. Full, normal range of motion. Neuro: Awake and alert, GCS 15, oriented to person, place, time, and situation. Cranial nerves II-XII grossly intact. Motor strength 5/5 in all extremities. Sensory grossly intact. Cerebellar exam normal. Normal gait. 06:26 Psych: Awake, alert, with orientation to person, place and time. Behavior, mood, and [facility] affect are within normal limits. Vital Signs: 04:26 BP 154 / 86; Pulse 72; Resp 18; Temp 98.7; Pulse Ox 100% ; Weight 124.74 kg; Height 6 ea ft. 3 in. (190.50 cm); 05:28 BP 141 / 70; Pulse 70; Resp 19; Pulse Ox 99% ; Pain 6/10; rr5 06:10 BP 118 / 74; Pulse 55; Resp 16; Pulse Ox 98% ; rr5 04:26 Body Mass Index 34.37 (124.74 kg, 190.50 cm) ea MDM: 06:26 Differential diagnosis: bowel obstruction, cholecystitis, Cholelithiasis, mh7 diverticulitis, gastritis, gastroesophageal reflux disease, non-specific abd pain, pancreatitis, Peptic Ulcer Disease, urinary tract infection. Data reviewed: vital signs, nurses notes, lab test result(s), CBC, electrolytes, urinalysis, radiologic studies, CT scan. Data interpreted: Pulse oximetry: on room air is 98 %. Interpretation: normal. Counseling: I had a detailed discussion with the patient and/or guardian regarding: the historical points, exam findings, and any diagnostic results supporting the discharge/admit diagnosis, lab results, radiology results, the need for outpatient follow up, to return to the emergency department if symptoms worsen or persist or if there are any questions or concerns that arise at home. Response to treatment: the patient's symptoms have resolved after treatment, the patient's blood pressure is in an acceptable range, mental status has returned to baseline, the patient no longer shows bradycardia, the patient is not short of breath, the patient is not tachycardic, the patient's pain is gone, the patient's temperature has normalized. 06:29 Patient medically screened. [facility] 06/13 04:30 Order name: Basic Metabolic Panel; Complete Time: 05:36 [facility] 06/13 04:30 Order name: CBC with Diff; Complete Time: 05:36 [facility] 06/13 04:30 Order name: Hepatic Function; Complete Time: 05:36 [facility] 06/13 04:30 Order name: Lipase; Complete Time: 05:36 [facility] 06/13 05:15 Order name: Urine Dipstick--Ancillary (enter results) tt3 06/13 05:16 Order name: Urine Dipstick-Ancillary; Complete Time: 05:36 [facility] 06/13 04:30 Order name: IV Saline Lock; Complete Time: 04:38 [facility] 06/13 04:30 Order name: Labs collected and sent; Complete Time: 04:38 [facility] 06/13 04:30 Order name: Urine Dipstick-Ancillary (obtain specimen); Complete Time: 05:15 [facility] 06/13 04:30 Order name: CT Abd/Pelvis - IV Contrast Only [facility] Administered Medications: 04:30 Drug: NS 0.9% 1000 ml Route: IV; Rate: 1000 ml; Site: right forearm; rr5 06:00 Follow up: Response: No adverse reaction; IV Status: Completed infusion; IV Intake: ea 1000ml 04:32 Drug: Zofran (Ondansetron) 4 mg Route: IVP; Site: right forearm; rr5 06:00 Follow up: Response: No adverse reaction ea 04:34 Drug: morphine 4 mg {Note: rass 0.} Route: IVP; Site: right forearm; rr5 06:00 Follow up: Response: No adverse reaction ea Disposition: 06/13/20 06:29 Discharged to Home. Impression: Gastroenteritis. - Condition is Stable. - Discharge Instructions: Viral Gastroenteritis, Adult, [id number]. - Prescriptions for Zofran ODT 4 mg Oral tablet,disintegrating - place 1 tablet by TRANSLINGUAL route every 8 hours As needed; 6 tablet. Bentyl 20 mg Oral Tablet - take 1 tablet by ORAL route every 6 hours As needed; 20 tablet. Pepcid 20 mg Oral Tablet - take 1 tablet by ORAL route every 12 hours for 5 days; 10 tablet. Cipro 500 mg Oral Tablet - take 1 tablet by ORAL route every 12 hours for 5 days; 10 tablet. - Medication Reconciliation Form, Thank You Letter, Antibiotic Education, Prescription Opioid Use form. - Follow up: Private Physician; When: 1 - 2 days; Reason: Worsening of condition, Recheck today's complaints, Continuance of care, Re-evaluation by your physician. Follow up: Drew Hendricks MD; When: 2 - 3 days; Reason: If symptoms return, Worsening of condition, Recheck today's complaints. - Problem is new. - Symptoms have improved. Signatures: Dispatcher [employer] Yovana Encarnacion RN RN ea Roque, Raymond, RN RN rr5 Carter Contreras MD MD mh7 Corrections: (The following items were deleted from the chart) 06:33 06:29 06/13/2020 06:29 Discharged to Home. Impression: Gastroenteritis. Condition is ea Stable. Forms are Medication Reconciliation Form, Thank You Letter, Antibiotic Education, Prescription Opioid Use. Follow up: Private Physician; When: 1 - 2 days; Reason: Worsening of condition, Recheck today's complaints, Continuance of care, Re-evaluation by your physician. Follow up: Drew Hendricks; When: 2 - 3 days; Reason: If symptoms return, Worsening of condition, Recheck today's complaints. Problem is new. Symptoms have improved. mh7
--- NOTE | 2020-06-13 06:30 | ER ---
Nurse's Notes [facility] Name: Juan Calabrese Age: 49 yrs Sex: Male : 1970 Arrival Date: 06/13/2020 Time: 04:14 Bed 5 Private MD: Diagnosis: Gastroenteritis Presentation: 06/13 04:26 Chief complaint: Patient states: Pt reports pain across [place] lower quadrant, pt reports ea it started about 10 PM last night had nausea and diarrhea x 4 times. Reports pain this AM is worse than last night. Coronavirus screen: At this time, the client does not indicate any symptoms associated with coronavirus-19. Ebola Screen: No symptoms or risks identified at this time. Initial Sepsis Screen: Does the patient meet any 2 criteria? No. Patient's initial sepsis screen is negative. Does the patient have a suspected source of infection? No. Patient's initial sepsis screen is negative. Risk Assessment: Do you want to hurt yourself or someone else? Patient reports no desire to harm self or others. Onset of symptoms. 04:26 Method Of Arrival: Ambulatory ea 04:26 Acuity: GUERA 3 ea Triage Assessment: 04:30 General: Appears uncomfortable, Behavior is appropriate for age. Pain: Complains of ea pain in right lower quadrant and left lower quadrant. Neuro: Level of Consciousness is awake, alert, obeys commands, Oriented to person, place, time. Respiratory: Airway is patent Respiratory effort is even, unlabored, Respiratory pattern is regular, symmetrical. GI: Abdomen is obese, Reports lower abdominal pain, nausea. Derm: Skin is pink, warm \T\ dry. Historical: - Allergies: 04:30 No Known Drug Allergies; ea - Home Meds: 04:30 None [Active]; ea - PMHx: 04:30 None; ea - PSHx: 04:30 None; ea - Immunization history:: Adult Immunizations up to date. - Social history:: Smoking status: Patient denies any tobacco usage or history of. Screenin:28 Abuse screen: Denies threats or abuse. Nutritional screening: No deficits noted. ea Tuberculosis screening: No symptoms or risk factors identified. Fall Risk None identified. Assessment: 04:15 General: Appears in no apparent distress. uncomfortable, Behavior is calm, cooperative, rr5 appropriate for age. 04:15 Pain: Complains of pain in abdomen and left lower quadrant and right lower quadrant rr5 Quality of pain is described as aching, Pain began gradually, Is intermittent. Neuro: Level of Consciousness is awake, alert, obeys commands, Oriented to person, place, time, situation. Cardiovascular: Capillary refill < 3 seconds Patient's skin is warm and dry. Respiratory: Airway Respiratory effort is even, unlabored, Respiratory pattern is regular, symmetrical. GI: Abdomen is round obese, Abd is soft and non tender Reports lower abdominal pain, diarrhea, nausea. : No signs and/or symptoms were reported regarding the genitourinary system. EENT: No signs and/or symptoms were reported regarding the EENT system. Derm: Skin is intact, is healthy with good turgor, Skin temperature is warm. Musculoskeletal: Circulation, motion, and sensation intact. Capillary refill < 3 seconds. 05:28 Reassessment: Patient appears in no apparent distress at this time. Patient is alert, rr5 oriented x 3, equal unlabored respirations, skin warm/dry/pink. back from CT scan. Patient states symptoms have improved. 06:11 Reassessment: Patient appears in no apparent distress at this time. Patient is alert, rr5 oriented x 3, equal unlabored respirations, skin warm/dry/pink. Patient states feeling better. Patient states symptoms have improved. 06:32 Reassessment: Patient and/or family updated on plan of care and expected duration. Pain ea level reassessed. Patient is alert, oriented x 3, equal unlabored respirations, skin warm/dry/pink. Discharge instruction given to patient, verbalized the understanding of instruction. Pt left ED ambulatory tolerating well. Vital Signs: 04:26 BP 154 / 86; Pulse 72; Resp 18; Temp 98.7; Pulse Ox 100% ; Weight 124.74 kg; Height 6 ea ft. 3 in. (190.50 cm); 05:28 BP 141 / 70; Pulse 70; Resp 19; Pulse Ox 99% ; Pain 6/10; rr5 06:10 BP 118 / 74; Pulse 55; Resp 16; Pulse Ox 98% ; rr5 04:26 Body Mass Index 34.37 (124.74 kg, 190.50 cm) ea ED Course: 04:14 Patient arrived in ED. ag3 04:15 Carter Contreras MD is Attending Physician. 7 04:28 Triage completed. ea 04:29 Patient has correct armband on for positive identification. Placed in gown. Bed in low ea position. Call light in reach. Side rails up X 1. Pulse ox on. NIBP on. 04:29 Patient placed in an exam room, on a stretcher, on pulse oximetry. ea 04:37 Tu Mcelroy, RN is Primary Nurse. rr5 04:38 Inserted saline lock: 20 gauge in right forearm, using aseptic technique. Blood rr5 collected. 05:15 Urine collected: clean catch specimen, clear. rr5 06:05 CT Abd/Pelvis - IV Contrast Only In Process Unspecified. EDMS 06:10 No provider procedures requiring assistance completed. rr5 06:28 Drew Hendricks MD is Referral Physician. 7 06:32 IV discontinued, intact, bleeding controlled, No redness/swelling at site. Pressure ea dressing applied. Administered Medications: 04:30 Drug: NS 0.9% 1000 ml Route: IV; Rate: 1000 ml; Site: right forearm; rr5 06:00 Follow up: Response: No adverse reaction; IV Status: Completed infusion; IV Intake: ea 1000ml 04:32 Drug: Zofran (Ondansetron) 4 mg Route: IVP; Site: right forearm; rr5 06:00 Follow up: Response: No adverse reaction ea 04:34 Drug: morphine 4 mg {Note: rass 0.} Route: IVP; Site: right forearm; rr5 06:00 Follow up: Response: No adverse reaction ea Intake: 06:00 IV: 1000ml; Total: 1000ml. ea Outcome: 06:29 Discharge ordered by . 7 06:31 Discharged to home ambulatory. ea 06:31 Condition: stable 06:31 Discharge instructions given to patient, Instructed on discharge instructions, follow up and referral plans. medication usage, Demonstrated understanding of instructions, follow-up care, medications, Prescriptions given X 4. 06:33 Patient left the ED. ea Signatures: Dispatcher [employer] EDMS Yovana Akins RN RN ea Gomez, Alice ag3 Tu Mcelroy, RN RN rr5 Carter Contreras MD MD health system
--- NOTE | 2020-06-14 17:36 | RAD REPORT ---
EXAM DESCRIPTION: CT - Abdomen Pelvis W Contrast - 06/13/2020 7:01 am CLINICAL HISTORY: The patient is 49 years old and is Male; ABD PAIN TECHNIQUE: Axial computed tomography images of the abdomen and pelvis with intravenous contrast. S agittal and coronal reformatted images were created and reviewed. This CT exam was performed using one or more of the following dose reduction techniques: automated exposure control, adjustment of t he mA and/or kV according to patient size, and/or use of iterative reconstruction technique. COMPARISON: CT of the abdomen and pelvis May 17, 2019 FINDINGS: LUNG BASES: Unremarkable. No mass. No consolidation. ABDOMEN: LIVER: Unremarkable. No mass. GALLBLADDER AND BILE DUCTS: No calcified stones. No ductal dilation. PANCREAS: No ductal dilation. No mass. SPLEEN: Unremarkable. ADRENALS: A 1.3 cm right adrenal gland nodule measuring fat density is present. No follow-up imag ing is recommended. KIDNEYS AND URETERS: A 0.7 cm left renal cyst is present. The kidneys enhance symmetrically. Ther e is no obstructing renal or ureteral calculus. STOMACH AND BOWEL: The stomach is minimally distended with food contents. A proximal small bowel loop within the left upper quadrant demonstrates minimal mucosal thickening and is fluid-filled and s lightly prominent. The remainder the small bowel is normal in appearance. A moderate amount of stool is present throughout the colon. There is no bowel obstruction. PELVIS: APPENDIX: The appendix is normal in caliber without surrounding inflammation. BLADDER: The bladder is nearly empty. REPRODUCTIVE: Unremarkable as visualized. ABDOMEN and PELVIS: INTRAPERITONEAL SPACE: Unremarkable. No free air. No significant fluid collection. BONES/JOINTS: Multilevel degenerative change of the spine is present. SOFT TISSUES: The soft tissues are normal. VASCULATURE: Unremarkable. No abdominal aortic aneurysm. LYMPH NODES: Unremarkable. No enlarged lymph nodes. IMPRESSION: 1. Nonspecific single thick walled fluid-filled and slightly prominent small bowel loo p within the left upper quadrant which may be secondary to a focal enteritis. There is no obstruction . 2. Mild/moderate stool burden. 3. Normal appendix. Electronically signed by: Angelia Branham MD 06/13/2020 6:13 AM SPEECH THERAPY TEACHER Due to temporary technical issues with the PACS/Fluency reporting system, reports are being signed by the in house radiologists without review as a courtesy to insure prompt reporting. The interpreting radiologist is fully responsible for the content of the report.
[2020-06-15 21:09] VITALS: TEMP 98.7
[2020-06-15 21:12] VITALS: BP 118/74; O2SAT 98
== END 2020-06-13 06:33 | disposition home or self-care (01) ==
LOC: ER 04:10
DX: K52.9 Noninfective gastroenteritis and colitis, unspecified (principal)
CPT/HCPCS: 36415; 74177; 80048; 80076; 81003; 83690; 85025; 96361; 96374; 96375; 99284; J2405; J7030; Q9967

== ENCOUNTER 2020-09-04 09:55 | Emergency (ER) | payer SELFPAY ==
--- OUTSIDE RECORDS SUMMARY | 2020-09-04 09:58 | XMS REPORT | Continuity of Care Document ---
:1970 Author Organization [facility] t Address [address] [place] [address] Care Team Providers Name Role Phone Lester Cardenas DO Attending Clinician Doctor Unassigned, Name Attending Clinician Unavailable Problems This patient has no known problems. Allergies, Adverse Reactions, Alerts This patient has no known allergies or adverse reactions. Medications This patient has no known medications. Procedures This patient has no known procedures. Encounters Start End Encounter Admission Attending Care Care Encounter Source Date/Time Date/Time Type Type Clinicians Facility Department ID 2020-08-25 2020-08-25 Emergency E [facility] [id number] [facility] 14:26:00 14:26:00 2020-07-04 2020-07-04 Emergency JULES Cardenas [id number] 05:27:00 07:14:00 Brenna Ross [id number] [place] [id number] [place] [id number] 2020-07-04 2020-07-04 Orders Doctor RUBIO [id number] 00:00:00 00:00:00 Only UnassignedALEJO [id number] [place] [facility] [id number] 2019-01-16 2019-01-16 Emergency E [facility] [id number] [facility] 11:56:00 11:56:00 Results This patient has no known results.
[2020-09-04] MEDS ORDERED: NA CHLORIDE 0.9% 1,000 ML ONE (12:38)
[2020-09-04 12:44] LABS: BUN Blood Urea Nitrogen 21 mg/dL (7-18); Bicarbonate 29 mmol/L (21-32); Creatine Phosphokinase 166 U/L (39-308); Glucose Level 102 mg/dL (74-106); Potassium 4.3 mmol/L (3.5-5.1); Sodium Level 143 mmol/L (136-145)
--- NOTE | 2020-09-04 14:09 | EDPHYS ---
Physician Documentation [facility] Name: Juan Calabrese Age: 49 yrs Sex: Male : 1970 Arrival Date: 09/04/2020 Time: 09:59 Bed 19 Private MD: ED Physician Brooks Maloney HPI: 09/04 12:01 This 49 yrs old Male presents to ER via Ambulatory with complaints of Leg jmm Pain, Weakness. 12:01 The patient presents with pain. Onset: The symptoms/episode began/occurred last night. jmm Modifying factors: The symptoms are alleviated by remaining still, the symptoms are aggravated by movement, weight bearing. Associated signs and symptoms: Pertinent positives: weakness, Pertinent negatives calf tenderness, fever, swelling. This is a 49 year old male with no known chronic medical conditions that presents to the ED with complaints of bilateral lower leg pain, spasms, weakness beginning after working out yesterday. Patient states he worked his legs out particularly hard. Denies fever, sob. Patient states he has intermittent spasms that are painful along with bilateral leg fatigue/weakness. . Historical: - Allergies: 10:15 No Known Allergies; aa5 - Home Meds: 10:15 None [Active]; aa5 - PMHx: 10:15 None; aa5 - PSHx: 10:15 None; aa5 - Immunization history:: Adult Immunizations unknown. - Social history:: Smoking status: Patient denies any tobacco usage or history of. ROS: 12:01 Constitutional: Negative for fever, chills, and weight loss, Cardiovascular: Negative jmm for chest pain, palpitations, and edema, Respiratory: Negative for shortness of breath, cough, wheezing, and pleuritic chest pain. 12:01 MS/extremity: Positive for pain. 12:01 All other systems are negative. Exam: 12:01 Constitutional: This is a well developed, well nourished patient who is awake, alert, jmm and in no acute distress. Head/Face: atraumatic. Eyes: EOMI, no conjunctival erythema appreciated ENT: Moist Mucus Membranes Neck: Trachea midline, Supple Chest/axilla: Normal chest wall appearance and motion. Cardiovascular: Regular rate and rhythm. No edema appreciated Respiratory: Normal respirations, no respiratory distress appreciated Abdomen/GI: Non distended, soft Back: Normal ROM Skin: General appearance color normal 12:01 Musculoskeletal/extremity: ROM: intact in all extremities. 12:01 Musculoskeletal/extremity: no edema, erythema appreciated to the legs bilaterally, pulses intact, compartments are soft, NVI. 12:01 Skin: Appearance: Color: normal in color. 12:01 Neuro: Orientation: is normal, Mentation: is normal, Memory: is normal. 12:01 Psych: Behavior/mood is pleasant, cooperative. Vital Signs: 10:14 BP 136 / 80; Pulse 80; Resp 18 S; Temp 98.4(O); Pulse Ox 98% on R/A; Weight 124.74 kg aa5 (R); Height 6 ft. 3 in. (190.50 cm) (R); Pain 0/10; 12:30 BP 94 / 62; Pulse 81; Resp 18; Pulse Ox 98% ; bw 14:10 BP 102 / 70; Pulse 80; Resp 18; Pulse Ox 98% on R/A; Pain 3/10; ss 10:14 Body Mass Index 34.37 (124.74 kg, 190.50 cm) aa5 MDM: 11:58 Patient medically screened. [facility] 14:07 Data reviewed: vital signs, nurses notes. Counseling: I had a detailed discussion with gertrude the patient and/or guardian regarding: the historical points, exam findings, and any diagnostic results supporting the discharge/admit diagnosis, lab results, the need for outpatient follow up. ED course: Patient states he feels much better with IVF. D-dimer negative. Patient is advised to follow up with pcp. Patient is otherwise given strict return precautions. Patient understood and agrees with the plan of care. . 09/04 11:59 Order name: BMP [facility] 09/04 11:59 Order name: CPK [facility] 09/04 11:59 Order name: D-Dimer [facility] 09/04 11:59 Order name: Basic Metabolic Panel; Complete Time: 12:48 EDKS 09/04 11:59 Order name: Creatine Phosphokinase; Complete Time: 12:48 EDKS 09/04 11:59 Order name: D-Dimer; Complete Time: 13:58 EDMS 09/04 11:59 Order name: Saline Lock; Complete Time: 12:29 [facility] 09/04 12:31 Order name: Labs - recollect needed: Blue top recollect "too short"; Complete Time: ss 13:09 Administered Medications: 12:28 Drug: NS 0.9% 1000 ml Route: IV; Rate: 1 bolus; Site: left antecubital; bw 14:51 Follow up: Response: No adverse reaction 14:52 Follow up: IV Status: Completed infusion Disposition: 18:51 Co-signature as Attending Physician, Brooks Maloney MD I agree with the assessment and tw4 plan of care. Disposition: 09/04/20 14:09 Discharged to Home. Impression: Pain in left leg, Pain in right leg. - Condition is Stable. - Discharge Instructions: Musculoskeletal Pain. - Prescriptions for orphenadrine citrate 100 mg Oral Tablet Sustained Release - take 1 tablet by ORAL route 2 times per day As needed; 20 tablet. - Medication Reconciliation Form, Thank You Letter, Antibiotic Education, Prescription Opioid Use, Work release form form. - Follow up: Private Physician; When: 2 - 3 days; Reason: Recheck today's complaints, Continuance of care, Re-evaluation by your physician. Signatures: Dispatcher [employer] EDMS Connor John PA PA jmm Calderon, Audri, RN RN aa5 Dodie Serna RN RN ss Wadley, Terrence, MD MD tw4 Sharri Casarez RN RN Corrections: (The following items were deleted from the chart) 14:53 14:09 09/04/2020 14:09 Discharged to Home. Impression: Pain in left leg; Pain in right ss leg. Condition is Stable. Forms are Medication Reconciliation Form, Thank You Letter, Antibiotic Education, Prescription Opioid Use. Follow up: Private Physician; When: 2 - 3 days; Reason: Recheck today's complaints, Continuance of care, Re-evaluation by your physician. britney
--- NOTE | 2020-09-04 14:09 | ER ---
Nurse's Notes [facility] Name: Juan Calabrese Age: 49 yrs Sex: Male : 1970 Arrival Date: 09/04/2020 Time: 09:59 Bed 19 Private MD: Diagnosis: Pain in left leg;Pain in right leg Presentation: 09/04 10:13 Chief complaint: Patient states: [place] leg cramping that comes and goes, pt reports pain aa5 started after working out last night. Pt also c/o generalized weakness. 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 Coronavirus screen: At this time, the client does not indicate any symptoms associated with coronavirus-19. Ebola Screen: Patient negative for fever greater than or equal to 101.5 degrees Fahrenheit, and additional compatible Ebola Virus Disease symptoms. Onset of symptoms was September 04, 2020. 10:13 Method Of Arrival: Ambulatory aa5 10:13 Acuity: GUERA 3 aa5 10:14 Initial Sepsis Screen: Does the patient meet any 2 criteria? No. Patient's initial aa5 sepsis screen is negative. Does the patient have a suspected source of infection? No. Patient's initial sepsis screen is negative. Risk Assessment: Do you want to hurt yourself or someone else? Patient reports no desire to harm self or others. Historical: - Allergies: 10:15 No Known Allergies; aa5 - Home Meds: 10:15 None [Active]; aa5 - PMHx: 10:15 None; aa5 - PSHx: 10:15 None; aa5 - Immunization history:: Adult Immunizations unknown. - Social history:: Smoking status: Patient denies any tobacco usage or history of. Screenin:30 Abuse screen: Denies threats or abuse. Nutritional screening: No deficits noted. bw Tuberculosis screening: No symptoms or risk factors identified. Fall Risk None identified. Assessment: 12:10 General: Appears in no apparent distress. uncomfortable, Behavior is calm, cooperative, bw appropriate for age. Pain: Denies pain. Neuro: No deficits noted. Cardiovascular: Denies chest pain, lightheadedness, nausea, shortness of breath, pt hypotensive at this time. . Respiratory: No deficits noted. GI: No deficits noted. : No deficits noted. EENT: No deficits noted. Derm: No deficits noted. Musculoskeletal: Reports pain in right leg and left leg since last night . 13:10 Reassessment: Patient appears in no apparent distress at this time. No changes from ss previously documented assessment. 14:10 Reassessment: Patient appears in no apparent distress at this time. No changes from ss previously documented assessment. Patient and/or family updated on plan of care and expected duration. Pain level reassessed. Patient is alert, oriented x 3, equal unlabored respirations, skin warm/dry/pink. Vital Signs: 10:14 BP 136 / 80; Pulse 80; Resp 18 S; Temp 98.4(O); Pulse Ox 98% on R/A; Weight 124.74 kg aa5 (R); Height 6 ft. 3 in. (190.50 cm) (R); Pain 0/10; 12:30 BP 94 / 62; Pulse 81; Resp 18; Pulse Ox 98% ; bw 14:10 BP 102 / 70; Pulse 80; Resp 18; Pulse Ox 98% on R/A; Pain 3/10; ss 10:14 Body Mass Index 34.37 (124.74 kg, 190.50 cm) aa5 ED Course: 09:59 Patient arrived in ED. mr 10:12 Arm band placed on. aa5 10:13 Triage completed. aa 11:52 Connor John PA is PHCP. [facility] 11:52 Brooks Maloney MD is Attending Physician. [facility] 12:06 Sharri Casarez, ZIGGY is Primary Nurse. bw 12:29 BMP Sent. bw 12:29 CPK Sent. bw 12:29 D-Dimer Sent. bw 12:30 Patient has correct armband on for positive identification. Call light in reach. Side bw rails up X 1. Pulse ox on. NIBP on. Warm blanket given. 12:30 No provider procedures requiring assistance completed. Inserted saline lock: 20 gauge bw in left antecubital area, using aseptic technique. 14:43 IV discontinued, intact, bleeding controlled, No redness/swelling at site. Pressure ss dressing applied. Administered Medications: 12:28 Drug: NS 0.9% 1000 ml Route: IV; Rate: 1 bolus; Site: left antecubital; 14:51 Follow up: Response: No adverse reaction 14:52 Follow up: IV Status: Completed infusion ss Outcome: 14:09 Discharge ordered by MD. tan 14:43 Discharged to home ambulatory. 14:43 Condition: improved 14:43 Discharge instructions given to patient, Instructed on discharge instructions, follow up and referral plans. medication usage, Demonstrated understanding of instructions, follow-up care, medications, Prescriptions given X 1. 14:53 Patient left the ED. Signatures: Connor John PA PA jmm RiveraMally mr Hinojosa, Nessa RN RN aa5 Dodie Serna RN RN ss Sharri Casarez RN RN Corrections: (The following items were deleted from the chart) 10:16 10:13 Chief complaint: Patient states: [place] leg cramping that comes and goes, pt reports aa5 pain started after working out last night. Pt also c/o generalized weakness. aa5
[2020-09-04 14:59] VITALS: TEMP 98.4; O2SAT 98
[2020-09-04 15:01] VITALS: BP 102/70
== END 2020-09-04 14:53 | disposition home or self-care (01) ==
LOC: ER 09:55
DX: M79.661 Pain in right lower leg (principal); M79.662 Pain in left lower leg
CPT/HCPCS: 36415; 80048; 82550; 85379; 96360; 96361; 99284; J7030

== ENCOUNTER 2020-12-01 11:12 | Emergency (ER) | payer SELFPAY ==
--- OUTSIDE RECORDS SUMMARY | 2020-12-01 11:14 | XMS REPORT | Continuity of Care Document ---
:1970 Author Organization [facility] t Address [address] [place] [address] Care Team Providers Name Role Phone Lester [...] 2020-07-04 2020-07-04 Emergency JULES Cardenas [id number] 05:27:00 07:14:00 Brenna Ross [id number] [place] [id number] [place] [id number] 2020-07-04 2020-07-04 Avinash RUBIO [id number] 00:00:00 00:00:00 Only UnassignedALEJO [id number] [place] [facility] [id number] 2019-01-16 2019-01-16 Emergency E [facility]BL [facility] [id number] [facility]BL 11:56:00 11:56:00 Results This patient has no known results.
[2020-12-01 11:49] LABS: Absolute Lymphocytes (CBC) 1.7 K/uL (0.7-4.9); Basophils % 0.4 % (0-1.3); Hematocrit 43.2 % (39.6-49.0); Lymphocytes % 22.6 % (15.3-44.8); MPV 8.8 fL (7.6-11.3); RBC Red Blood Cell Count 4.73 M/uL (4.33-5.43)
[2020-12-01] MEDS ORDERED: ONDANSETRON 4 MG/2 ML VIAL ONE (12:00)
[2020-12-01] MEDS ORDERED: NA CHLORIDE 0.9% 1,000 ML ONE (12:00)
[2020-12-01 12:02] LABS: ALT/SGPT 45 U/L (12-78); AST/SGOT 20 U/L (15-37); Albumin 3.7 g/dL (3.4-5.0); Alkaline Phosphatase 88 U/L (45-117); BUN Blood Urea Nitrogen 15 mg/dL (7-18); Bicarbonate 26 mmol/L (21-32); Bilirubin Direct 0.1 mg/dL (0-0.2); Bilirubin Total 0.7 mg/dL (0.2-1.0); Glucose Level 101 mg/dL (74-106); Lipase 451 U/L (73-393); Potassium 3.7 mmol/L (3.5-5.1); Protein, Total 7.1 g/dL (6.4-8.2); Sodium Level 140 mmol/L (136-145)
--- NOTE | 2020-12-01 12:51 | RAD REPORT ---
EXAM DESCRIPTION: CT - Abdomen Pelvis W Contrast - 12/01/2020 12:36 pm CLINICAL HISTORY: Abdominal pain COMPARISON: 2019 and 2016 TECHNIQUE: Computed axial tomography of the abdomen pelvis was obtained. 100 cc Isovue-300 was admin istered intravenously. Oral contrast was not requested which limits evaluation of bowel. All CT scans are performed using dose optimization technique as appropriate and may include automated exposure control or mA/KV adjustment according to patient size. FINDINGS: Small right adrenal nodule unchanged probably an adenoma The liver, spleen, pancreas, left adrenal and kidneys appear unremarkable. There is no evidence of diverticulitis. Mild rectal wall thickening Normal appendix. Small left inguinal hernia contains fat IMPRESSION: Mild rectal wall thickening may be secondary to incomplete distention or pathology such as inflammation or mass
[2020-12-01] MEDS ORDERED: metroNIDAZOLE 500 MG TABLET ONE (13:18)
[2020-12-01] MEDS ORDERED: CIPROFLOXACIN HCL 500 MG TAB ONE (13:18)
--- NOTE | 2020-12-01 13:45 | EDPHYS ---
Physician Documentation [facility] Name: Juan Calabrese Age: 50 yrs Sex: Male : 1970 Arrival Date: 12/01/2020 Time: 11:13 Bed 25 Private MD: ED Physician Devin Link HPI: 12/01 12:02 This 50 yrs old Male presents to ER via Ambulatory with complaints of Diarrhea.rn 12:02 The patient presents to the emergency department with nausea, diarrhea, abdominal pain. rn Onset: The symptoms/episode began/occurred 2 day(s) ago. Possible causes: unknown. The symptoms are aggravated by nothing. The symptoms are alleviated by nothing. Associated signs and symptoms: Pertinent positives: diarrhea, nausea, Pertinent negatives: fever, GI bleeding. Severity of symptoms: At their worst the symptoms were moderate in the emergency department the symptoms are unchanged. The patient has not experienced similar symptoms in the past. The patient has not recently seen a physician. Reports 2 days of diarrhea and nausea, + abd cramping, no current abd pain, reports thought was better, went to work and had accident with diarrhea in his pants. No vomiting. No blood in stool. No fever. . Historical: - Allergies: 11:25 No Known Allergies; ph - Home Meds: 11:25 None [Active]; ph - PMHx: 11:25 None; ph - PSHx: 11:25 None; ph - Immunization history:: Adult Immunizations not up to date. - Social history:: Smoking status: Patient denies any tobacco usage or history of. - Family history:: not pertinent. - Hospitalizations: : No recent hospitalization is reported. ROS: 12:02 Constitutional: Negative for fever, chills, and weight loss, Eyes: Negative for injury, rn pain, redness, and discharge, Neck: Negative for injury, pain, and swelling, Cardiovascular: Negative for chest pain, palpitations, and edema, Respiratory: Negative for shortness of breath, cough, wheezing, and pleuritic chest pain, Abdomen/GI: + abd cramping, + nausea, + diarrhea : Negative for injury, bleeding, discharge, and swelling, MS/Extremity: Negative for injury and deformity, Skin: Negative for injury, rash, and discoloration, Neuro: Negative for headache, weakness, numbness, tingling, and seizure. Exam: 12:02 Constitutional: This is a well developed, well nourished patient who is awake, alert, rn and in no acute distress. Head/Face: Normocephalic, atraumatic. Eyes: Pupils equal round and reactive to light, extra-ocular motions intact. Lids and lashes normal. Conjunctiva and sclera are non-icteric and not injected. Cornea within normal limits. Periorbital areas with no swelling, redness, or edema. ENT: dry MM Cardiovascular: Regular rate and rhythm. No pulse deficits. Respiratory: Lungs have equal breath sounds bilaterally, clear to auscultation and percussion. No rales, rhonchi or wheezes noted. No increased work of breathing, no retractions or nasal flaring. Abdomen/GI: soft, non-tender Skin: Warm, dry with normal turgor. Normal color with no rashes, no lesions, and no evidence of cellulitis. MS/ Extremity: Pulses equal, no cyanosis. Neurovascular intact. Full, normal range of motion. Equal circumference. Neuro: Awake and alert, GCS 15 Vital Signs: 11:23 BP 156 / 99; Pulse 82; Resp 20; Temp 98.7(TE); Pulse Ox 98% on R/A; Weight 122.47 kg; ph Height 6 ft. 3 in. (190.50 cm); 12:51 BP 124 / 77; Pulse 77; Resp 15 S; Pulse Ox 100% on R/A; ca1 14:01 BP 131 / 82; Pulse 71; Resp 16 S; Pulse Ox 100% on R/A; ca1 11:23 Body Mass Index 33.75 (122.47 kg, 190.50 cm) ph MDM: 11:22 Patient medically screened. rn 13:43 Differential diagnosis: Nonspecific abd pain, appendicitis, diverticulitis, viral rn gastroenteritis, gastroenteritis. Data reviewed: vital signs, nurses notes, lab test result(s), radiologic studies, CT scan, and as a result, I will discharge patient. Counseling: I had a detailed discussion with the patient and/or guardian regarding: the historical points, exam findings, and any diagnostic results supporting the discharge/admit diagnosis, lab results, radiology results, the need for outpatient follow up, to return to the emergency department if symptoms worsen or persist or if there are any questions or concerns that arise at home. Response to treatment: the patient's symptoms have markedly improved after treatment, and as a result, I will discharge patient. Special discussion: I discussed with the patient/guardian in detail that at this point there is no indication for admission to the hospital. It is understood, however, that if the symptoms persist or worsen the patient needs to return immediately for re-evaluation. 12/01 11:27 Order name: Basic Metabolic Panel; Complete Time: 12:11 rn 12/01 11:27 Order name: CBC with Diff; Complete Time: 12:11 rn 12/01 11:27 Order name: Hepatic Function; Complete Time: 12:11 rn 12/01 11:27 Order name: Lipase; Complete Time: 12:11 rn 12/01 11:27 Order name: CT Abd/Pelvis - IV Contrast Only; Complete Time: 12:51 rn 12/01 11:27 Order name: IV Saline Lock; Complete Time: 11:36 rn 12/01 11:27 Order name: Labs collected and sent; Complete Time: 11:36 rn Administered Medications: 11:40 Drug: NS 0.9% 1000 ml Route: IV; Rate: 1000 ml; Site: left forearm; ca1 13:30 Follow up: Response: No adverse reaction; IV Status: Completed infusion; IV Intake: ca1 1000ml 11:42 Drug: Zofran (Ondansetron) 4 mg Route: IVP; Site: left antecubital; ca1 12:30 Follow up: Response: No adverse reaction; Nausea is decreased ca1 12:56 Drug: Cipro (ciprofloxacin) 500 mg Route: PO; ca1 14:01 Follow up: Response: No adverse reaction ca1 13:00 Drug: Flagyl (metroNIDAZOLE) 500 mg Route: PO; ca1 14:01 Follow up: Response: No adverse reaction ca1 13:49 Drug: LoMOTIL (diphenoxylate-atropine) 2 tabs Route: PO; ap3 14:01 Follow up: Response: No adverse reaction ca1 Disposition: 12/01/20 13:44 Discharged to Home. Impression: Diarrhea, unspecified, Other specified noninfective gastroenteritis and colitis. - Condition is Stable. - Discharge Instructions: Food Choices to Help Relieve Diarrhea, Adult, Diarrhea, Adult. - Prescriptions for Zofran ODT 4 mg Oral tablet,disintegrating - place 1 tablet by TRANSLINGUAL route every 8 hours As needed; 20 tablet. Flagyl 500 mg Oral Tablet - take 1 tablet by ORAL route every 8 hours for 10 days; 30 tablet. Cipro 500 mg Oral Tablet - take 1 tablet by ORAL route every 12 hours for 10 days; 20 tablet. - Medication Reconciliation Form, Thank You Letter, Antibiotic Education, Prescription Opioid Use, Work release form form. - Follow up: Private Physician; When: As needed; Reason: Recheck today's complaints, Re-evaluation by your physician. Follow up: Vishnu Cotto MD; When: 10 - 14 days; Reason: Recheck today's complaints, Re-evaluation by your physician. - Problem is new. - Symptoms have improved. Signatures: Dispatcher [employer] EDMS Devin Link MD MD rn Heidi Toure RN RN ph Krissy Rodriguez RN RN ap3 AcGabriela rodgers RN RN ca1 Corrections: (The following items were deleted from the chart) 13:44 13:44 12/01/2020 13:44 Discharged to Home. Impression: Diarrhea, unspecified. Condition rn is Stable. Forms are Medication Reconciliation Form, Thank You Letter, Antibiotic Education, Prescription Opioid Use. Follow up: Private Physician; When: As needed; Reason: Recheck today's complaints, Re-evaluation by your physician. Problem is new. Symptoms have improved. rn 13:45 13:44 12/01/2020 13:44 Discharged to Home. Impression: Diarrhea, unspecified; Other rn specified noninfective gastroenteritis and colitis. Condition is Stable. Forms are Medication Reconciliation Form, Thank You Letter, Antibiotic Education, Prescription Opioid Use. Follow up: Private Physician; When: As needed; Reason: Recheck today's complaints, Re-evaluation by your physician. Problem is new. Symptoms have improved. rn 14:02 13:45 12/01/2020 13:44 Discharged to Home. Impression: Diarrhea, unspecified; Other ca1 specified noninfective gastroenteritis and colitis. Condition is Stable. Discharge Instructions: Food Choices to Help Relieve Diarrhea, Adult, Diarrhea, Adult. Prescriptions for Zofran ODT 4 mg Oral tablet,disintegrating - place 1 tablet by TRANSLINGUAL route every 8 hours As needed; 20 tablet, Flagyl 500 mg Oral Tablet - take 1 tablet by ORAL route every 8 hours for 10 days; 30 tablet, Cipro 500 mg Oral Tablet - take 1 tablet by ORAL route every 12 hours for 10 days; 20 tablet. and Forms are Medication Reconciliation Form, Thank You Letter, Antibiotic Education, Prescription Opioid Use. Follow up: Private Physician; When: As needed; Reason: Recheck today's complaints, Re-evaluation by your physician. Follow up: Vishnu Cotto; When: 10 - 14 days; Reason: Recheck today's complaints, Re-evaluation by your physician. Problem is new. Symptoms have improved. rn
--- NOTE | 2020-12-01 13:45 | ER ---
Nurse's Notes [facility] Name: Juan Calabrese Age: 50 yrs Sex: Male : 1970 Arrival Date: 12/01/2020 Time: 11:13 Bed 25 Private MD: Diagnosis: Diarrhea, unspecified;Other specified noninfective gastroenteritis and colitis Presentation: 12/01 11:23 Chief complaint: Patient states: Liquid stools x approx 2 days, intermittent, sharp ph lower abdominal pain, bright red blood in stool that started today, denies N/V or fever. Coronavirus screen: At this time, the client does not indicate any symptoms associated with coronavirus-19. Ebola Screen: No symptoms or risks identified at this time. Initial Sepsis Screen: Does the patient meet any 2 criteria? No. Patient's initial sepsis screen is negative. Does the patient have a suspected source of infection? No. Patient's initial sepsis screen is negative. Risk Assessment: Do you want to hurt yourself or someone else? Patient reports no desire to harm self or others. Onset of symptoms was December 01, 2020. 11:23 Method Of Arrival: Ambulatory ph 11:23 Acuity: GUERA 3 ph Historical: - Allergies: 11:25 No Known Allergies; ph - Home Meds: 11:25 None [Active]; ph - PMHx: 11:25 None; ph - PSHx: 11:25 None; ph - Immunization history:: Adult Immunizations not up to date. - Social history:: Smoking status: Patient denies any tobacco usage or history of. - Family history:: not pertinent. - Hospitalizations: : No recent hospitalization is reported. Screenin:25 Abuse screen: Denies threats or abuse. Denies injuries from another. Nutritional ca1 screening: No deficits noted. Tuberculosis screening: No symptoms or risk factors identified. Fall Risk IV access (20 points). Assessment: 11:25 General: Appears in no apparent distress. comfortable, Behavior is calm, cooperative, ca1 appropriate for age. Pain: Complains of pain in right lower quadrant and left lower quadrant Pain currently is 0 out of 10 on a pain scale. at worst was 5 out of 10 on a pain scale. Quality of pain is described as crampy, Is intermittent. Neuro: Level of Consciousness is awake, alert, obeys commands, Oriented to person, place, time, situation. GI: Abdomen is round non-distended, Bowel sounds present X 4 quads. Abd is soft and non tender X 4 quads. Abd is soft X 4 quads. GI: Reports diarrhea, since 1.5 days [employer]. Derm: Skin is intact, is healthy with good turgor, Skin is pink, warm \T\ dry. Musculoskeletal: Circulation, motion, and sensation intact. Capillary refill < 3 seconds. 12:51 Reassessment: Patient appears in no apparent distress at this time. Patient and/or ca1 family updated on plan of care and expected duration. Pain level reassessed. Patient is alert, oriented x 3, equal unlabored respirations, skin warm/dry/pink. 14:01 Reassessment: Patient appears in no apparent distress at this time. Patient is alert, ca1 oriented x 3, equal unlabored respirations, skin warm/dry/pink. Vital Signs: 11:23 BP 156 / 99; Pulse 82; Resp 20; Temp 98.7(TE); Pulse Ox 98% on R/A; Weight 122.47 kg; ph Height 6 ft. 3 in. (190.50 cm); 12:51 BP 124 / 77; Pulse 77; Resp 15 S; Pulse Ox 100% on R/A; ca1 14:01 BP 131 / 82; Pulse 71; Resp 16 S; Pulse Ox 100% on R/A; ca1 11:23 Body Mass Index 33.75 (122.47 kg, 190.50 cm) ph ED Course: 11:13 Patient arrived in ED. am2 11:22 Gabriela Santana, RN is Primary Nurse. ca1 11:22 Devin Link MD is Attending Physician. rn 11:24 Triage completed. ph 11:25 Arm band placed on Patient placed in an exam room, on a stretcher. ph 11:25 Patient has correct armband on for positive identification. Bed in low position. Call ca1 light in reach. Side rails up X 1. Pulse ox on. NIBP on. Warm blanket given. 11:36 Basic Metabolic Panel Sent. em1 11:36 CBC with Diff Sent. em1 11:36 Hepatic Function Sent. em1 11:36 Lipase Sent. em1 11:37 Initial lab(s) drawn, by me, sent to lab. Inserted saline lock: 20 gauge in left em1 antecubital area, using aseptic technique. Blood collected. 12:36 CT Abd/Pelvis - IV Contrast Only In Process Unspecified. EDMS 13:42 ED physician to see patient. ap3 13:45 Vishnu Cotto MD is Referral Physician. rn 14:02 No provider procedures requiring assistance completed. IV discontinued, intact, ca1 bleeding controlled, No redness/swelling at site. Pressure dressing applied. Administered Medications: 11:40 Drug: NS 0.9% 1000 ml Route: IV; Rate: 1000 ml; Site: left forearm; ca1 13:30 Follow up: Response: No adverse reaction; IV Status: Completed infusion; IV Intake: ca1 1000ml 11:42 Drug: Zofran (Ondansetron) 4 mg Route: IVP; Site: left antecubital; ca1 12:30 Follow up: Response: No adverse reaction; Nausea is decreased ca1 12:56 Drug: Cipro (ciprofloxacin) 500 mg Route: PO; ca1 14:01 Follow up: Response: No adverse reaction ca1 13:00 Drug: Flagyl (metroNIDAZOLE) 500 mg Route: PO; ca1 14:01 Follow up: Response: No adverse reaction ca1 13:49 Drug: LoMOTIL (diphenoxylate-atropine) 2 tabs Route: PO; ap3 14:01 Follow up: Response: No adverse reaction ca1 Intake: 13:30 IV: 1000ml; Total: 1000ml. ca1 Outcome: 13:44 Discharge ordered by . rn 14:02 Discharged to home ambulatory. ca1 14:02 Condition: stable 14:02 Discharge instructions given to patient, Instructed on discharge instructions, follow up and referral plans. no drinking with medication, medication usage, Demonstrated understanding of instructions, follow-up care, medications, Prescriptions given X 3. 14:02 Patient left the ED. ca1 Signatures: Dispatcher [employer] EDMS Devin Link MD MD rn Martinez, Eric em1 Heidi Toure RN RN ph Moreno, Amanda am2 Krissy Rodriguez RN RN ap3 Gabriela Santana RN RN ca1
[2020-12-01] MEDS ORDERED: DIPHENOX/ATROP SULF 1 TAB PO ONE (14:08)
[2020-12-01 14:27] VITALS: TEMP 98.7
[2020-12-01 14:28] VITALS: O2SAT 100
[2020-12-01 14:29] VITALS: BP 131/82
== END 2020-12-01 14:02 | disposition home or self-care (01) ==
LOC: ER 11:12
DX: K52.89 Other specified noninfective gastroenteritis and colitis (principal)
CPT/HCPCS: 36415; 74177; 80048; 80076; 83690; 85025; 96361; 96374; 99284; J2405; J7030; Q9967

== ENCOUNTER 2021-03-05 14:54 | Emergency (ER) | payer SELFPAY ==
--- OUTSIDE RECORDS SUMMARY | 2021-03-05 14:56 | XMS REPORT | Continuity of Care Document ---
:1970 Author Organization [facility] t Address [address] [place] [address] Care Team Providers Name Role Phone Lester [...] 2020-07-04 2020-07-04 Emergency JULES Cardenas [id number] 05:27:00 07:14:00 Brenna Ross [id number] [place] [id number] [place] [phone] [id number] 2020-07-04 2020-07-04 Avinash RUBIO [id number] 00:00:00 00:00:00 Only UnassignedALEJO [id number] [place] [facility] [id number] [id number] 2019-01-16 2019-01-16 Emergency E [id number] [facility] 11:56:00 11:56:00 Results This patient has no known results.
[2021-03-05] MEDS ORDERED: NA CHLORIDE 0.9% 1,000 ML ONE (16:35)
[2021-03-05 16:38] LABS: BUN Blood Urea Nitrogen 15 mg/dL (7-18); Bicarbonate 28 mmol/L (21-32); Creatine Phosphokinase 186 U/L (39-308); Glucose Level 105 mg/dL (74-106); Potassium 3.9 mmol/L (3.5-5.1); Sodium Level 144 mmol/L (136-145)
--- NOTE | 2021-03-05 18:51 | EDPHYS ---
Physician Documentation [facility] Name: Juan Calabrese Age: 50 yrs Sex: Male : 1970 Arrival Date: 03/05/2021 Time: 14:56 Bed 21 Private MD: ED Physician Paul Crowe HPI: 03/05 17:22 This 50 yrs old Male presents to ER via Ambulatory with complaints of jmm Weakness, Body Cramping. 17:22 Onset: The symptoms/episode began/occurred gradually, 1 day(s) ago. This is a jmm 50-year-old male with no chronic medical conditions presents emerged part with complaints of generalized cramping which she attributes to overexertion over the past few days. Patient also states he has been working out quite a bit. Patient denies chest pain or shortness of breath. Denies vomiting. Denies diarrhea.. Historical: - Allergies: 15:49 No Known Allergies; iw - PMHx: 15:49 None; iw - PSHx: 15:49 None; iw - Immunization history:: Client reports receiving the 2nd dose of the Covid vaccine. - Social history:: Smoking status: Patient denies any tobacco usage or history of. ROS: 17:22 Cardiovascular: Negative for chest pain, palpitations, and edema, Respiratory: Negative jm for shortness of breath, cough, wheezing, and pleuritic chest pain. 17:22 Constitutional: Positive for body aches. 17:22 All other systems are negative. Exam: 17:22 Constitutional: This is a well developed, well nourished patient who is awake, alert, jmm and in no acute distress. Head/Face: atraumatic. Eyes: EOMI, no conjunctival erythema appreciated ENT: Moist Mucus Membranes Neck: Trachea midline, Supple Chest/axilla: Normal chest wall appearance and motion. Cardiovascular: Regular rate and rhythm. No edema appreciated Respiratory: Normal respirations, no respiratory distress appreciated Abdomen/GI: Non distended, soft Back: Normal ROM Skin: General appearance color normal MS/ Extremity: Moves all extremities, no obvious deformities appreciated, no edema noted to the lower extremities Neuro: Awake and alert, normal gait Psych: Behavior is normal, Mood is normal, Patient is cooperative and pleasant Vital Signs: 15:48 Pulse 74; Resp 16; Temp 98.1; Pulse Ox 99% on R/A; Weight 122.47 kg; Height 6 ft. 3 in. iw (190.50 cm); 15:48 Body Mass Index 33.75 (122.47 kg, 190.50 cm) iw MDM: 15:49 Patient medically screened. [facility] 18:49 Data reviewed: vital signs, nurses notes. Counseling: I had a detailed discussion with britney the patient and/or guardian regarding: the historical points, exam findings, and any diagnostic results supporting the discharge/admit diagnosis, lab results, the need for outpatient follow up, to return to the emergency department if symptoms worsen or persist or if there are any questions or concerns that arise at home. ED course: Patient is alert nontoxic in appearance in the ED. Labs are normal. Patient states he feels better. Most likely due to spasming.. 03/05 15:49 Order name: Saline Lock; Complete Time: 16:10 [facility] 03/05 16:16 Order name: Basic Metabolic Panel; Complete Time: 17:51 EDMO 03/05 16:16 Order name: Creatine Phosphokinase; Complete Time: 17:51 EDMO Administered Medications: 22:09 Discontinued: NS 0.9% 1000 ml IV at 1 bolus Per protocol; 1000 mL bolus iw 16:15 Drug: NS 0.9% 1000 ml Route: IV; Rate: 1 bolus; Site: left antecubital; iw Disposition: 22:05 Co-signature as Attending Physician, Paul Crowe MD I agree with the assessment and kdr plan of care. Disposition Summary: 03/05/21 18:50 Discharge Ordered Location: Home [facility] Condition: Stable [facility] Diagnosis - Muscle spasm m Followup: [facility] - With: Private Physician - When: 2 - 3 days - Reason: Recheck today's complaints, Continuance of care, Re-evaluation by your physician Discharge Instructions: - Discharge Summary Sheet [facility] - Muscle Cramps and Spasms [facility] Forms: - Medication Reconciliation Form [facility] - Thank You Letter [facility] - Work release form [facility] - Antibiotic Education [facility] - Prescription Opioid Use [facility] Prescriptions: - orphenadrine citrate 100 mg Oral Tablet Sustained Release - take 1 tablet by ORAL route 2 times per day As needed; 20 tablet; Refills: 0, [facility] Product Selection Permitted Signatures: Dispatcher [facility] EDMS Paul Crowe MD MD kdr Mickail, Joel, PA PA jmm Williams, Irene, RN RN iw Corrections: (The following items were deleted from the chart) 16:19 BASIC METABOLIC PANEL+C.LAB.BRZ ordered. EDMS EDMS 16:19 CREATINE PHOSPHOKINASE+C.LAB.BRZ ordered. EDMS EDMS
--- NOTE | 2021-03-05 18:51 | ER ---
Nurse's Notes [facility] Name: Juan Calabrese Age: 50 yrs Sex: Male : 1970 Arrival Date: 03/05/2021 Time: 14:56 Bed 21 Private MD: Diagnosis: Muscle spasm Presentation: 03/05 15:48 Chief complaint: Patient states: has been over exerting himself at work, has had iw cramping and general weakness. Coronavirus screen: At this time, the client does not indicate any symptoms associated with coronavirus-19. Ebola Screen: Patient negative for fever greater than or equal to 101.5 degrees Fahrenheit, and additional compatible Ebola Virus Disease symptoms Patient denies exposure to infectious person. Patient denies travel to an Ebola-affected area in the 21 days before illness onset. No symptoms or risks identified at this time. Initial Sepsis Screen: Does the patient meet any 2 criteria? No. Patient's initial sepsis screen is negative. Does the patient have a suspected source of infection? No. Patient's initial sepsis screen is negative. Risk Assessment: Do you want to hurt yourself or someone else? Patient reports no desire to harm self or others. Onset of symptoms was March 05, 2021. 15:48 Method Of Arrival: Ambulatory iw 15:48 Acuity: GUERA 3 iw Triage Assessment: 18:00 General: Appears in no apparent distress. Behavior is calm, cooperative. iw Historical: - Allergies: 15:49 No Known Allergies; iw - PMHx: 15:49 None; iw - PSHx: 15:49 None; iw - Immunization history:: Client reports receiving the 2nd dose of the Covid vaccine. - Social history:: Smoking status: Patient denies any tobacco usage or history of. Screenin:00 Abuse screen: Denies threats or abuse. Denies injuries from another. Nutritional iw screening: No deficits noted. Tuberculosis screening: No symptoms or risk factors identified. Fall Risk None identified. Assessment: 15:48 General: Appears in no apparent distress. Behavior is calm, cooperative. Pain: iw Complains of pain in right arm, left arm, right leg and left leg. Neuro: Level of Consciousness is awake, alert, obeys commands, Oriented to person, place, time, situation, Moves all extremities. Full function. Cardiovascular: Patient's skin is warm and dry. Respiratory: Respiratory effort is even, unlabored, Respiratory pattern is regular, symmetrical. Derm: Skin is intact, is healthy with good turgor. Musculoskeletal: Range of motion: intact in all extremities. 18:00 Reassessment: Patient appears in no apparent distress at this time. Patient and/or iw family updated on plan of care and expected duration. Pain level reassessed. Patient is alert, oriented x 3, equal unlabored respirations, skin warm/dry/pink. Vital Signs: 15:48 Pulse 74; Resp 16; Temp 98.1; Pulse Ox 99% on R/A; Weight 122.47 kg; Height 6 ft. 3 in. iw (190.50 cm); 15:48 Body Mass Index 33.75 (122.47 kg, 190.50 cm) iw ED Course: 14:56 Patient arrived in ED. ds1 15:48 Patient has correct armband on for positive identification. iw 15:49 Connor John PA is PHCP. [facility] 15:49 Paul Crowe MD is Attending Physician. [facility] 15:49 Triage completed. iw 15:49 Arm band placed on. iw 16:10 Initial lab(s) drawn, by wi, sent to lab. Inserted saline lock: 22 gauge in left 5 antecubital area, using aseptic technique. Blood collected. 16:15 Adela Cardenas, RN is Primary Nurse. iw 18:30 IV discontinued, intact, bleeding controlled, No redness/swelling at site. Pressure iw dressing applied. 19:30 No provider procedures requiring assistance completed. iw Administered Medications: 22:09 Discontinued: NS 0.9% 1000 ml IV at 1 bolus Per protocol; 1000 mL bolus iw 16:15 Drug: NS 0.9% 1000 ml Route: IV; Rate: 1 bolus; Site: left antecubital; iw Outcome: 18:50 Discharge ordered by . britney 19:30 Discharged to home ambulatory. iw 19:30 Condition: good 19:30 Discharge instructions given to patient, Instructed on discharge instructions, follow up and referral plans. Demonstrated understanding of instructions, follow-up care, Prescriptions given X 1. 19:31 Patient left the ED. iw Signatures: Connor John PA PA Valeria Harry ds1 Adela Cardenas RN RN Afshan Taveras [facility] Corrections: (The following items were deleted from the chart) 22:09 19:30 Discharge instructions given to patient, Instructed on discharge instructions, iw follow up and referral plans. Demonstrated understanding of instructions, follow-up care, iw
[2021-03-05 19:38] VITALS: TEMP 98.1; O2SAT 99
== END 2021-03-05 19:31 | disposition home or self-care (01) ==
LOC: ER 14:54
DX: M62.838 Other muscle spasm (principal)
CPT/HCPCS: 36415; 80048; 82550; 99283; J7030

== ENCOUNTER 2021-06-20 19:57 | Emergency (ER) | payer SELFPAY ==
--- OUTSIDE RECORDS SUMMARY | 2021-06-20 20:00 | XMS REPORT | Continuity of Care Document ---
:1970 Author Organization [facility] t Address [address] [place] [address] Care Team Providers Name Role Phone MARK ANTHONY CALIXTO Attending Clinician Unavailable Lester Cardenas DO Attending Clinician Doctor Unassigned, Name Attending Clinician Unavailable Problems Condition Condition Condition Status Onset Resolution Last Treating Co mments Source Name Details Category Date Date Treatment Clinician Date No known No known Disease Unive rs active active ity of problems problems [facility] Allergies, Adverse Reactions, Alerts Allergy Allergy Status Severity Reaction(s) Onset Inactive Treating Comm ents Source Name Type Date Date Clinician NO KNOWN Drug Active Univers ALLERGIE Class ity of S [facility] Social History Social Habit Start Date Stop Date Quantity Comments Source Exposure to SARS-CoV-2 Not sure Un iversity [facility] (event) [facility] Sex Assigned At Uni versity [facility] Smoking Status Start Date Stop Date Source Unknown if ever smoked Universit y [facility] Medications Ordered Filled Start Stop Current Ordering Indication Dosage Frequency Signature Comments Components Source Medication Medication Date Date Medication? Clinician (SIG) Name Name NaCl 0.9% 2020- No 1000mL at 999 Uni vers (NS) bolus 1-09 01-09 mL/hr, ity of infusion 12:00: 13:13 1,000 mL, Ra as 1,000 mL 00 :00 IV Medical Infusion, Branch ONCE, 1 dose, 07/04/20 at 0600, GABRIEL ondansetron 2018-06 Yes [id number] 4mg Take 1 Univers (ZOFRAN 0-02 tablet by ity of ODT) 4 mg 00:00: mouth [place] disintegrat 00 every 8 Medic al ing tablet (eight) Branch hours as needed for Nausea and Vomiting (N/V). ondansetron 2018-06 Yes [id number] 4mg Take 1 Univers (ZOFRAN 0-02 tablet by ity of ODT) 4 mg 00:00: mouth [place] disintegrat 00 every 8 Medic al ing tablet (eight) Branch hours as needed for Nausea and Vomiting (N/V). meloxicam 2016-06 Yes 7.5mg Take 1 Unive rs 7.5 mg 1-06 tablet by ity of tablet 00:00: mouth [place] 00 daily. Medical Branch meloxicam 2016-06 Yes 7.5mg Take 1 Unive rs 7.5 mg 1-06 tablet by ity of tablet 00:00: mouth [place] 00 daily. Medical Branch cyclobenzap Yes 10mg Take 1 Univ ers rine 7-11 tablet by ity of (FLEXERIL) 00:00[place] 10 mg 00 (three) Medical tablet times Branch daily. cyclobenzap Yes 10mg Take 1 Univ ers rine 7-11 tablet by ity of (FLEXERIL) 00:00: [place] 10 mg 00 (three) Medical tablet times Branch daily. Vital Signs Vital Name Observation Time Observation Value Comments Source Systolic blood 2020-07-04 13:00:00 139 mm[Hg] Univer sity of pressure [facility] Diastolic blood 2020-07-04 13:00:00 75 mm[Hg] [facility] [place] [facility] pressure [facility] Heart rate 2020-07-04 13:00:00 66 /min [facility] Respiratory rate 2020-07-04 13:00:00 16 /min [facility] Oxygen saturation in 2020-07-04 13:00:00 98 /min [facility] Arterial blood by [facility] Pulse oximetry Branch Body temperature 2020-07-04 11:32:[address] [facility] Body height 2020-07-04 11:32:00 190.5 cm [facility] Body weight 2020-07-04 11:32:00 124.739 kg [facility] BMI 2020-07-04 11:32:00 34.37 kg/m2 [facility] Systolic blood 2020-07-04 13:00:00 139 mm[Hg] Univer sity of pressure [facility] Diastolic blood 2020-07-04 13:00:00 75 mm[Hg] Unive [facility] Heart rate 2020-07-04 13:00:00 66 /min [facility] Respiratory rate 2020-07-04 13:00:00 16 /min [facility] Oxygen saturation in 2020-07-04 13:00:00 98 /min [facility] Arterial blood by [facility] Pulse oximetry [place] Body temperature 2020-07-04 11:32:[address] [facility] Body height 2020-07-04 11:32:00 190.5 cm [facility] Body weight 2020-07-04 11:32:00 124.739 kg [facility] BMI 2020-07-04 11:32:00 34.37 kg/m2 [facility] Procedures Procedure Date / Time Performed Performing Clinician Sourc e LIPASE 2020-07-04 11:57:00 Brenna Cadrenas [facility] MAGNESIUM 2020-07-04 11:57:00 Brenna Cardenas [facility] HEPATIC FUNCTION 2020-07-04 11:57:00 Brenna Cardenas [facility] PANEL ([id number]) [facility] (ALB,T.PRO,BILI T,BU/BC,ALT,AST,ALK PHOS) BASIC METABOLIC PANEL 2020-07-04 11:57:00 Brenna Cardenas [facility] (NA, K, CL, CO2, Medical Branch GLUCOSE, BUN, CREATININE, CA) CBC WITH DIFF 2020-07-04 11:57:00 Brenna Cardenas [facility] NOTICE OF PRIVACY 2020-07-04 11:20:01 Doctor Unassigned, No [facility] PRACTICES Name Medical Branch CONSENT/REFUSAL FOR 2020-07-04 11:19:29 Doctor Unassigned, No Un [facility] DIAGNOSIS AND Name Medical Branch TREATMENT Encounters Start End Encounter Admission Attending Care Care Encounter Source Date/Time Date/Time Type Type Clinicians Facility Department ID 2020-08-25 2020-08-25 Emergency E MARILY, BL [facility] [id number] [facility] 14:26:00 17:59:00 MARIA FERNANDA 2020-07-04 2020-07-04 Emergency [facility] [id number] [facility] 05:27:00 07:14:00 Brenna Ross [id number] ity [facility] [id number] [facility] [id number] [facility] 084 [place] 2020-07-04 2020-07-04 Emergency [facility] [id number] 05:27:00 07:14:00 Brenna Ross [id number] [place] 4.2.7.2.686 [place] [id number] [facility] 2020-07-04 2020-07-04 Emergency X [facility] ERT [id number] Univers 05:20:00 05:20:00 ity of [facility] 2020-07-04 2020-07-04 Orders Doctor RUBIO [id number] [facility] 00:00:00 00:00:00 Only UnassignedALEJO [id number] ity [facility] 4.2.7.2.686 [facility] [id number] [facility] 009 Branch 2020-07-04 2020-07-04 Orders Doctor RUBIO [id number] 00:00:00 00:00:00 Only UnassignedALEJO 350.1.13.10 [facility] 4.2.7.2.686 [id number] 2019-01-16 2019-01-16 Emergency E MHBL [facility] [id number] [facility] 11:56:00 11:56:00 Results Test Description Test Time Test Comments Results Result Comments Source Basic Metabolic Panel (NA, K, CL, CO2, GLUCOSE, BUN, 2020-06 12:26:00 CREATININE, CA) Test Item Value Reference Range Interpretation Comme nts NA (test code = 3886001423) 140 mmol/L 135-145 K (test code = 1641005636) 4.2 mmol/L 3.5-5 CL (test code = 4685491540) 103 mmol/L 98-108 CO2 TOTAL (test code = 4199228249) 30 mmol/L 23-31 AGAP (test code = 8897096104) 2-16 BUN (test code = 2139173541) 17 mg/dL 7-23 GLUCOSE (test code = 2239467938) 129 mg/dL 70-110 H CREATININE (test code = 0.87 mg/dL 0.6-1.25 6998351496) CALCIUM (test code = 8095713902) 8.7 mg/dL 8.6-10.6 eGFR Calculation (Non- mL/min/1.73m2 [place]an) (test code = 8723689122) eGFR Calculation ( mL/min/1.73m2 [place]) (test code = 9996444800) STACIE (test code = STACIE) Association of Glomerular Filtration Rate (GFR) and Staging of Kidney Disease* + +-------- + ------+| GFR (mL/min/1.73 m2) ?| With Kidney Damage ?| ?Without Kidney Damage+ +-- + +| ?>90 ?| ?Stage one ?| ? Normal ?+ +------- + -------+| ?60-89 ?| ?Stage two ?| ? Decreased GFR ? + +-------- + ------+| ?30-59 ?| ?Stage three ?| ? Stage three ? + +-------- + ------+| ?15-29 ?| ?Stage four ? | ? Stage four ?+ +------- + -------+| ?<15 (or dialysis) ? ?| ?Stage five ? | ? Stage five ?+ +------- + -------+ *Each stage assumes the associated GFR level has been in effect for at least three months. ?Stages 1 to 5, with or without kidney disease, indicate chronic kidney disease. Notes: Determination of stages one and two (with eGFR >59mL/min/1.73 m2) requires estimation of kidney damage for at least three months as defined by structural or functional abnormalities of the kidney, manifested by either:Pathological abnormalities or Markers of kidney damage (including abnormalities in the composition of the blood or urine or abnormalities in imaging tests). Lab Interpretation (test code = Abnormal 48270-4) [facility] (ALB, T.PRO, BILI T, BU/BC, ALT, AST, ALK PHOS)2020-07-04 12:26:00 Test Item Value Reference Range Interpretation Comments TOTAL BILI (test code = 9149637161) 0.6 mg/dL 0.1-1.1 BILI UNCON (test code = 8895874967) 0.6 mg/dL 0.1-1.1 BILI CONJ (test code = 6802799594) 0.0 mg/dL 0-0.3 T PROTEIN (test code = 2052018160) 6.9 g/dL 6.3-8.2 ALBUMIN (test code = 0848130121) 4.2 g/dL 3.5-5 ALK PHOS (test code = 3456018832) 109 U/L 34-122 ALTv (test code = 1742-6) 30 U/L 5-50 AST(SGOT) (test code = 4224055237) 33 U/L 13-40 Lab Interpretation (test code = Normal 08747-5) [facility] [id number] 12:26:00 Test Item Value Reference Range Interpretation Comments LIPASE (test code = 4262214989) 308 U/L 0-220 H Lab Interpretation (test code = Abnormal 62573-9) [facility] 12:26:00 Test Item Value Reference Range Interpretation Comments MAGNESIUM (test code = 1625495171) 2.1 mg/dL 1.7-2.4 Lab Interpretation (test code = Normal 84557-3) [facility] with [id number] 12:15:00 Test Item Value Reference Range Interpretation Comments WBC (test code = See_Comment [Automated message] 6690-2) The system [employer] generated this result transmitted ref erence range: 4.20 - 1 0.70 10*3/?L. The re ference range was not u sed to interpret this result as normal/abnor mal. RBC (test code = See_Comment [Automated message] 789-8) The system [employer] generated this result transmitted ref erence range: 4.26 - 5 .52 10*6/?L. The re ference range was not u sed to interpret this result as normal/abnor mal. HGB (test code = 14.6 g/dL 12.2-16.4 718-7) HCT (test code = 43.3 % 38.4-49.3 4544-3) MCV (test code = 91.9 fL 81.7-95.6 787-2) MCH (test code = 31.0 pg 26.1-32.7 785-6) MCHC (test code = 33.7 g/dL 31.2-35 786-4) RDW-SD (test code 43.6 fL 38.5-51.6 = 70750-3) RDW-CV (test code 12.8 % 12.1-15.4 = 788-0) PLT (test code = See_Comment [Automated message] 777-3) The system [employer] generated this result transmitted ref erence range: 150 - 32 8 10*3/?L. The re ference range was not u sed to interpret this result as normal/abnor mal. MPV (test code = 10.4 fL 9.8-13 84492-4) NRBC/100 WBC (test See_Comment [Automat ed message] code = 6090001843) The syste m which generated this result transmitted ref erence range: 0.0 - 10 .0 /100 WBCs. The refer ence range was not u sed to interpret this result as normal/abnor mal. NRBC x10^3 (test <0.01 See_Comment [Automated message] code = 4727582025) The syste m which generated this result transmitted ref erence range: 10*3/?L. The reference range was not used to interpr et this result as normal/abnormal . GRAN MAT (NEUT) % 60.0 % (test code = 770-8) IMM GRAN % (test 0.30 % code = 4785528484) LYMPH % (test code 26.0 % = 736-9) MONO % (test code 11.4 % = 5905-5) EOS % (test code = 1.8 % 713-8) BASO % (test code 0.5 % = 706-2) GRAN MAT 3.59 10*3/uL 1.99-6.95 x10^3(ANC) (test code = 0750035073) IMM GRAN x10^3 <0.03 0-0.06 (test code = 0591257252) LYMPH x10^3 (test 1.56 10*3/uL 1.09-3.23 code = 731-0) MONO x10^3 (test 0.68 10*3/uL 0.36-1.02 code = 742-7) EOS x10^3 (test 0.11 10*3/uL 0.06-0.53 code = 711-2) BASO x10^3 (test 0.03 10*3/uL 0.01-0.09 code = 704-7) [facility]"
[2021-06-20] MEDS ORDERED: KETOROLAC 30 MG/ML INJ ONE (22:02)
--- NOTE | 2021-06-20 23:54 | EDPHYS ---
Physician Documentation [facility] Name: Juan Calabrese Age: 50 yrs Sex: Male : 1970 Arrival Date: 06/20/2021 Time: 19:59 Bed 5 Private MD: ED Physician Saul Nelson HPI: 06/20 21:57 This 50 yrs old Male presents to ER via Ambulatory with complaints of Buttock pkl Pain, Nerve pain. 21:57 The patient or guardian reports pain. The complaints affect the right buttock. Onset: pkl The symptoms/episode began/occurred 1 week(s) ago. Modifying factors: the symptoms are aggravated by weight bearing. Associated signs and symptoms: Pertinent positives: pain radiating down right leg. Historical: - Allergies: 20:39 No Known Allergies; iw - Home Meds: 20:39 None [Active]; iw - PMHx: 20:39 None; iw - PSHx: 20:39 None; iw - Immunization history:: Client reports receiving the 2nd dose of the Covid vaccine. - Social history:: Smoking status: Patient denies any tobacco usage or history of. ROS: 21:57 Eyes: Negative for injury, pain, redness, and discharge, ENT: Negative for injury, pkl pain, and discharge, Neck: Negative for injury, pain, and swelling, Cardiovascular: Negative for chest pain, palpitations, and edema, Respiratory: Negative for shortness of breath, cough, wheezing, and pleuritic chest pain, Abdomen/GI: Negative for abdominal pain, nausea, vomiting, diarrhea, and constipation, Back: Negative for injury and pain, : Negative for injury, bleeding, discharge, and swelling. 21:57 MS/extremity: Positive for pain, of the right leg. 21:57 Skin: Positive for rash, of the right buttock. 21:57 Neuro: Negative for altered mental status, loss of consciousness. Exam: 21:57 Head/Face: Normocephalic, atraumatic. Eyes: Pupils equal round and reactive to light, pkl extra-ocular motions intact. Lids and lashes normal. Conjunctiva and sclera are non-icteric and not injected. Cornea within normal limits. Periorbital areas with no swelling, redness, or edema. ENT: Nares patent. No nasal discharge, no septal abnormalities noted. Tympanic membranes are normal and external auditory canals are clear. Oropharynx with no redness, swelling, or masses, exudates, or evidence of obstruction, uvula midline. Mucous membranes moist. Neck: Trachea midline, no thyromegaly or masses palpated, and no cervical lymphadenopathy. Supple, full range of motion without nuchal rigidity, or vertebral point tenderness. No Meningismus. Chest/axilla: Normal chest wall appearance and motion. Nontender with no deformity. No lesions are appreciated. Cardiovascular: Regular rate and rhythm with a normal S1 and S2. No gallops, murmurs, or rubs. Normal PMI, no JVD. No pulse deficits. Respiratory: Lungs have equal breath sounds bilaterally, clear to auscultation and percussion. No rales, rhonchi or wheezes noted. No increased work of breathing, no retractions or nasal flaring. Abdomen/GI: Soft, non-tender, with normal bowel sounds. No distension or tympany. No guarding or rebound. No evidence of tenderness throughout. Back: No spinal tenderness. No costovertebral tenderness. Full range of motion. 21:57 Skin: rash can be described as scabs ( bunch ) right buttock, on the right buttock. 21:57 Neuro: Orientation: is normal, Mentation: is normal, Cranial nerves: grossly normal, Motor: is normal. Vital Signs: 20:38 Pulse 86; Resp 16; Temp 98.0; Pulse Ox 99% on R/A; iw 20:41 BP 161 / 95; iw 21:43 BP 115 / 71; Pulse 78; Resp 16; Temp 98.4; Pulse Ox 98% 0 lpm ; sv1 06/21 00:09 BP 122 / 80; Pulse 80; Resp 16; Pulse Ox 98% 0 lpm ; Pain 2/10; sv1 MDM: 06/20 21:22 Patient medically screened. pkl 23:49 Data reviewed: vital signs, nurses notes, radiologic studies, CT scan. ED course: pkl Patient feeling better. Discussed CT Scan results with patient. Advised MRI lumbar spines iif symptoms are worse. To follow up with PCP in 2 to 3 days. Patient understood instructions. . 06/20 21:52 Order name: CT Lumbar Spine Wo Con pkl Administered Medications: 22:04 Drug: TORadol (ketorolac) 60 mg Route: IM; Site: left deltoid; sv1 22:19 Follow up: Response: No adverse reaction; Pain is decreased sv1 23:29 Follow up: Response: Pain is decreased sv1 Disposition Summary: 06/20/21 23:54 Discharge Ordered Location: Home pkl Problem: new pkl Symptoms: have improved pkl Condition: Stable pkl Diagnosis - Acute low back pain. Possible prolapsed intervertebral disc. Possible pkl herpes zoster Followup: pkl - With: Private Physician - When: 2 - 3 days - Reason: Re-evaluation by your physician Discharge Instructions: - Discharge Summary Sheet pkl Forms: - Medication Reconciliation Form pkl - Thank You Letter pkl - Work release form pkl - Antibiotic Education pkl - Prescription Opioid Use pkl Prescriptions: - Diclofenac Sodium 75 mg Oral Tablet Sustained Release - take 1 tablet by ORAL route 2 times per day; 30 tablet; Refills: 0, Product pkl Selection Permitted - Acyclovir 800 mg Oral Tablet - take 1 tablet by ORAL route 3 times per day for 10 days; 30 tablet; Refills: 0, pkl Product Selection Permitted Signatures: Dispatcher [employer] Saul Madden MD MD pkl Adela Cardenas RN RN iw Gregor Walker RN RN sv1
--- NOTE | 2021-06-20 23:54 | ER ---
Nurse's Notes [facility] Name: Juan Calabrese Age: 50 yrs Sex: Male : 1970 Arrival Date: 06/20/2021 Time: 19:59 Bed 5 Private MD: Diagnosis: Acute low back pain. Possible prolapsed intervertebral disc. Possible herpes zoster Presentation: 06/20 20:38 Chief complaint: Patient states: has pain in right buttock, close to hip when standing iw , more pain when he tries to bear weight. Coronavirus screen: At this time, the client does not indicate any symptoms associated with coronavirus-19. Ebola Screen: Patient negative for fever greater than or equal to 101.5 degrees Fahrenheit, and additional compatible Ebola Virus Disease symptoms Patient denies exposure to infectious person. Patient denies travel to an Ebola-affected area in the 21 days before illness onset. No symptoms or risks identified at this time. Initial Sepsis Screen: Does the patient meet any 2 criteria? No. Patient's initial sepsis screen is negative. Does the patient have a suspected source of infection? No. Patient's initial sepsis screen is negative. Risk Assessment: Do you want to hurt yourself or someone else? Patient reports no desire to harm self or others. Onset of symptoms was June 20, 2021. 20:38 Method Of Arrival: Ambulatory iw 20:38 Acuity: GUERA 4 iw Triage Assessment: 06/21 00:11 General: Appears uncomfortable. Pain: Complains of pain in buttocks Pain does not sv1 radiate. Historical: - Allergies: 06/20 20:39 No Known Allergies; iw - Home Meds: 20:39 None [Active]; iw - PMHx: 20:39 None; iw - PSHx: 20:39 None; iw - Immunization history:: Client reports receiving the 2nd dose of the Covid vaccine. - Social history:: Smoking status: Patient denies any tobacco usage or history of. Screenin/27 00:10 Abuse screen: none. Nutritional screening: No deficits noted. Tuberculosis screening: sv1 No symptoms or risk factors identified. Fall Risk None identified. Vital Signs: 06/20 20:38 Pulse 86; Resp 16; Temp 98.0; Pulse Ox 99% on R/A; iw 20:41 BP 161 / 95; iw 21:43 BP 115 / 71; Pulse 78; Resp 16; Temp 98.4; Pulse Ox 98% 0 lpm ; sv1 06/21 00:09 BP 122 / 80; Pulse 80; Resp 16; Pulse Ox 98% 0 lpm ; Pain 2/10; sv1 ED Course: 06/20 19:59 Patient arrived in ED. bp1 20:39 Triage completed. iw 20:40 Arm band placed on. iw 21:22 Saul Nelson MD is Attending Physician. pkl 21:43 Gregor Walker, RN is Primary Nurse. sv1 22:52 CT Lumbar Spine Wo Con In Process Unspecified. EDMS 06/21 00:10 Patient has correct armband on for positive identification. Bed in low position. Call sv1 light in reach. Side rails up X 1. 00:10 No provider procedures requiring assistance completed. Patient did not have IV access sv1 during this emergency room visit. Administered Medications: 06/20 22:04 Drug: TORadol (ketorolac) 60 mg Route: IM; Site: left deltoid; sv1 22:19 Follow up: Response: No adverse reaction; Pain is decreased sv1 23:29 Follow up: Response: Pain is decreased sv1 Outcome: 23:54 Discharge ordered by . pkl 06/21 00:10 Discharged to home ambulatory. sv1 Condition: good Discharge instructions given to patient, Demonstrated understanding of instructions, medications. 00:12 Patient left the ED. sv1 Signatures: Dispatcher [employer] EDMS Saul Nelosn MD MD pkl Adela Cardenas RN RN iw Mandy Ribera bp1 Gregor Walker, ZIGGY RN sv1
[2021-06-21 00:25] VITALS: TEMP 98.4; O2SAT 98
[2021-06-21 00:28] VITALS: BP 122/80
--- NOTE | 2021-06-21 11:07 | RAD REPORT ---
EXAM DESCRIPTION: CT - Spine Lumbar Wo Con - 06/21/2021 6:26 am CLINICAL HISTORY: Pain right buttock radiating down right leg COMPARISON: 03/24/2020. TECHNIQUE: Contiguous axial images of lumbar spine were obtained utilizing 2 mm slice thickness at 2 mm interval reconstruction. In addition multiplanar reformats in the sagittal and coronal plane were generated and reviewed This exam was performed according to our departmental dose-optimization protocol, which includes auto mated exposure control, adjustment of the mA and/or kV according to patient size and/or use of iterat beatris reconstruction technique. FINDINGS: There is anatomic alignment of the lumbar spine. There is minimal lateral bone bridging/sp ondylosis at L1-L3. Vertebral body height is preserved without evidence of acute fracture or subluxat ion. No retroperitoneal or paraspinal abnormality is seen. L1-2: Unremarkable L2-3: Unremarkable L3-4: Unremarkable L4-5: There is minimal posterior facet hypertrophy and small broad-based bulge with no significant comprised of the spinal canal and/or neural foramina L5-S1: Small broad-based bulge with no complex of the spinal canal and/or neural foramina IMPRESSION: Minimal lateral bone bridging/spondylosis at L1-L3. Minimal posterior facet hypertrophy and small broad-based bulge at L4-L5 and L5-S1 with no significan t comprised of the spinal canal and/or neural foramina. No significant interval change in comparison with prior study. Electronically signed by: Joaquín Shields MD 06/20/2021 11:40 PM FOOD PREPARER Due to temporary technical issues with the PACS/Fluency reporting system, reports are being signed by the in house radiologist without review as a courtesy to ensure prompt reporting. The interpreting r adiologist is fully responsible for the content of the report.
== END 2021-06-21 00:12 | disposition home or self-care (01) ==
LOC: ER 19:57
DX: M54.50 Low back pain, unspecified (principal); B02.9 Zoster without complications
CPT/HCPCS: 72131; 96372; 99283

== ENCOUNTER 2021-06-30 16:40 | Emergency (ER) | payer SELFPAY ==
--- OUTSIDE RECORDS SUMMARY | 2021-06-30 16:43 | XMS REPORT | Continuity of Care Document ---
:1970 Author Organization [facility] t Address [address] [place] [address] Care Team Providers Name Role Phone SHANTE POWERS Attending Clinician Unavailable MARK ANTHONY CALIXTO Attending Clinician Unavailable Lester Cardenas DO Attending Clinician Doctor Unassigned, Name Attending Clinician Unavailable Problems Condition Condition Condition Status Onset Resolution Last Treating Co mments Source Name Details Category Date Date Treatment Clinician Date No known No known Disease Unive rs active active ity of problems problems [facility] Allergies, Adverse Reactions, Alerts Allergy Allergy Status Severity Reaction(s) Onset Inactive Treating Comm ents Source Name Type Date Date Clinician NO KNOWN Drug Active Univers ALLERGIE Class ity of S [facility] Social History Social Habit Start Date Stop Date Quantity Comments Source Exposure to SARS-CoV-2 Not sure [facility] Sex Assigned At Uni versity [facility] Smoking Status Start Date Stop Date Source Unknown if ever smoked Universit y [facility] Medications Ordered Filled Start Stop Current Ordering [...] 07/04/20 at 0600, GABRIEL ondansetron 2018-06 Yes [id number] 4mg Take 1 Univers (ZOFRAN 0-02 tablet by ity of ODT) 4 mg 00:00: mouth [place] disintegrat 00 every 8 Medic al ing tablet (eight) Branch hours as needed for Nausea and Vomiting (N/V). ondansetron 2018-06 Yes [id number] 4mg Take 1 Univers (ZOFRAN 0-02 tablet [...] 2020-07-04 13:00:00 139 mm[Hg] Univer sity of [facility] Diastolic blood 2020-07-04 13:00:00 75 mm[facility]Hg[facility] Heart rate 2020-07-04 13:00:00 66 /min [facility] Respiratory rate 2020-07-04 13:00:00 16 /min [facility] Oxygen saturation in 2020-07-04 13:00:00 98 /min [facility] Arterial blood by [facility] Pulse oximetry Branch Body temperature 2020-07-04 11:32:00 36.33 Anna [facility] Body height 2020-07-04 11:32:00 190.5 cm [facility] Body weight 2020-07-04 11:32:00 124.739 kg [facility] BMI 2020-07-04 11:32:00 34.37 kg/m2 [facility] Systolic blood 2020-07-04 13:00:00 139 mm[Hg] Univer sity of pressure [facility] Diastolic blood 2020-07-04 13:00:00 75 mm[Hg] Unive rsity of pressure [facility] Heart rate 2020-07-04 13:00:00 66 /min [facility] Respiratory rate 2020-07-04 13:00:00 16 /min [facility] Oxygen saturation in 2020-07-04 13:00:00 98 /min [facility] Arterial blood by [facility] Pulse oximetry [place] Body temperature 2020-07-04 11:32:00 36.33 Anna [facility] Body height 2020-07-04 11:32:00 190.5 cm [facility] Body weight 2020-07-04 11:32:00 124.739 kg [facility] BMI 2020-07-04 11:32:00 34.37 kg/m2 [facility] Procedures Procedure Date / Time Performed Performing Clinician Sourc e LIPASE 2020-07-04 11:57:00 Brenna Cardenas [facility] MAGNESIUM 2020-07-04 11:57:00 Brenna Cardenas [facility] HEPATIC FUNCTION 2020-07-04 11:57:00 Brenna Cardenas [facility] PANEL ([id number]) [facility] (ALB,T.PRO,BILI T,BU/BC,ALT,AST,ALK PHOS) BASIC METABOLIC PANEL 2020-07-04 11:57:00 Brenna Cardenas [facility] (NA, K, CL, CO2, Medical Branch GLUCOSE, BUN, CREATININE, CA) CBC WITH DIFF 2020-07-04 11:57:00 Brenna Cardenas [facility] NOTICE OF PRIVACY 2020-07-04 11:20:01 Doctor Unassigned, No [facility] PRACTICES Name Medical Branch CONSENT/REFUSAL FOR 2020-07-04 11:19:29 Doctor Unassigned, No [facility]IS AND Name Medical Branch TREATMENT Encounters Start End Encounter Admission Attending Care Care Encounter Source Date/Time Date/Time Type Type Clinicians Facility Department ID 2021-06-23 2021-06-23 Emergency E PRIYA, MHBL MHBL [id number] [facility]BL 13:41:00 17:23:00 AMI 2020-08-25 2020-08-25 Emergency E MARILY, MHBL MHBL [id number] MHBL 14:26:00 17:59:00 MARIA FERNANDA 2020-07-04 2020-07-[address] [facility] [id number] 05:27:00 07:14:00 Brenna Ross [id number] [place] 4.2.7.2.686 [place] [id number] 2020-07-04 2020-07-04 Emergency Ronald [facility] [id number] [facility] 05:27:00 07:14:00 Brenna Ross [id number] ity of [place] 4.2.7.2.686 [facility] [id number] [facility] 084 [place] 2020-07-04 2020-07-04 Emergency X [facility] ERT [id number] Univers 05:20:00 05:20:00 ity of [facility] 2020-07-04 2020-07-04 Orders Doctor RUBIO [id number] 00:00:00 00:00:00 Only UnassignedALEJO 350.1.13.10 [place] [facility] 4.2.7.2.686 [id number] 2020-07-04 2020-07-04 Orders Doctor RUBIO [id number] Univers 00:00:00 00:00:00 Only UnassignedALEJO 350.1.13.10 ity of [place] [facility] 4.2.7.2.686 [place] [id number] [facility] 009 Branch 2019-01-16 2019-01-16 Emergency E BL MHBL [id number] MHBL 11:56:00 11:56:00 Results Test Description Test Time Test Comments Results Result Comments Source Basic Metabolic Panel (NA, K, CL, CO2, GLUCOSE, BUN, 2020-06 12:26:00 CREATININE, CA) Test Item Value Reference Range Interpretation Comme nts NA (test code = 6258218922) 140 mmol/L 135-145 K (test code = 4679886325) 4.2 mmol/L 3.5-5 CL (test code = 2609190533) 103 mmol/L 98-108 CO2 TOTAL (test code = 8302903065) 30 mmol/L 23-31 AGAP (test code = 6250089685) 2-16 BUN (test code = 1448162521) 17 mg/dL 7-23 GLUCOSE (test code = 7270910375) 129 mg/dL 70-110 H CREATININE (test code = 0.87 mg/dL 0.6-1.25 5776624588) CALCIUM (test code = 9136068876) 8.7 mg/dL 8.6-10.6 eGFR Calculation (Non- mL/min/1.73m2 French) (test code = 3927122715) eGFR Calculation ( mL/min/1.73m2 French) (test code = 2427537297) STACIE (test code = STACIE) Association of [...] tests). Lab Interpretation (test code = Abnormal 14863-7) [facility] (ALB, T.PRO, BILI T, BU/BC, ALT, AST, ALK PHOS)2020-07-04 12:26:00 Test Item Value Reference Range Interpretation Comments TOTAL BILI (test code = 9452962512) 0.6 mg/dL 0.1-1.1 BILI UNCON (test code = 2526612215) 0.6 mg/dL 0.1-1.1 BILI CONJ (test code = 8155208874) 0.0 mg/dL 0-0.3 T PROTEIN (test code = 1076344952) 6.9 g/dL 6.3-8.2 ALBUMIN (test code = 7816290134) 4.2 g/dL 3.5-5 ALK PHOS (test code = 7231127205) 109 U/L 34-122 ALTv (test code = 1742-6) 30 U/L 5-50 AST(SGOT) (test code = 0432831965) 33 U/L 13-40 Lab Interpretation (test code = Normal 15541-9) [facility] [id number] 12:26:00 Test Item Value Reference Range Interpretation Comments LIPASE (test code = 4789683052) 308 U/L 0-220 H Lab Interpretation (test code = Abnormal 80077-9) [facility] 12:26:00 Test Item Value Reference Range Interpretation Comments MAGNESIUM (test code = 1110026550) 2.1 mg/dL 1.7-2.4 Lab Interpretation (test code = Normal 45663-3) [facility] with [id number] 12:15:00 Test Item Value Reference Range Interpretation Comments WBC (test code = See_Comment [Automated message] 6690-2) The system [employer] generated this result transmitted ref erence range: 4.20 - 1 0.70 10*3/?L. The re ference range was not u sed to interpret this result as normal/abnor mal. RBC (test code = See_Comment [Automated message] 789-8) The system [employer] generated this result transmitted ref erence range: [...] RDW-SD (test code 43.6 fL 38.5-51.6 = 82962-8) RDW-CV (test code 12.8 % 12.1-15.4 = 788-0) PLT (test code = See_Comment [Automated message] 687-3) The system [employer] generated this result transmitted ref erence range: 150 - 32 8 10*3/?L. The re ference range was not u sed to interpret this result as normal/abnor mal. MPV (test code = 10.4 fL 9.8-13 00716-2) NRBC/100 WBC (test See_Comment [Automat ed message] code = 0758517554) The syste m which generated this result transmitted ref erence range: 0.0 - 10 .0 /100 WBCs. The refer ence range was not u sed to interpret this result as normal/abnor mal. NRBC x10^3 (test <0.01 See_Comment [Automated message] code = 2484035652) The syste m which generated this result transmitted ref erence range: 10*3/?L. The reference range was not used to interpr et this result as normal/abnormal . GRAN MAT (NEUT) % 60.0 % (test code = 770-8) IMM GRAN % (test 0.30 % code = 3017263681) LYMPH % (test code 26.0 % = 736-9) MONO % (test code 11.4 % = 5905-5) EOS % (test code = 1.8 % 713-8) BASO % (test code 0.5 % = 706-2) GRAN MAT 3.59 10*3/uL 1.99-6.95 x10^3(ANC) (test code = 4055068150) IMM GRAN x10^3 <0.03 0-0.06 (test code = 9388902821) LYMPH x10^3 (test 1.56 10*3/uL 1.09-3.23 code = 731-0) MONO x10^3 (test 0.68 10*3/uL 0.36-1.02 code = 742-7) EOS x10^3 (test 0.11 10*3/uL 0.06-0.53 code = 711-2) BASO x10^3 (test 0.03 10*3/uL 0.01-0.09 code = 704-7) [facility]"
[2021-06-30] MEDS ORDERED: KETOROLAC 30 MG/ML INJ ONE (21:35)
--- NOTE | 2021-06-30 22:10 | ER ---
Nurse's Notes [facility] Name: Juan Calabrese Age: 50 yrs Sex: Male : 1970 Arrival Date: 06/30/2021 Time: 16:45 Bed 11 Private MD: Diagnosis: Sciatica, right side Presentation: 06/30 17:18 Chief complaint: Patient states: I lifted something extremely heavy like 10 days ago. I ld1 am having pain in my right butt and down my right leg. The pain was going away and today is started being very painful. Coronavirus screen: At this time, the client does not indicate any symptoms associated with coronavirus-19. Ebola Screen: No symptoms or risks identified at this time. Initial Sepsis Screen: Does the patient meet any 2 criteria? No. Patient's initial sepsis screen is negative. Does the patient have a suspected source of infection? No. Patient's initial sepsis screen is negative. Risk Assessment: Do you want to hurt yourself or someone else? Patient reports no desire to harm self or others. Onset of symptoms was June 30, 2021. 17:18 Method Of Arrival: Ambulatory ld1 17:18 Acuity: GUERA 4 ld1 Triage Assessment: 17:20 General: Appears in no apparent distress. comfortable, Behavior is calm, cooperative, ld1 appropriate for age. Pain: Complains of pain in right gluteus pablo Pain radiates to right leg. Neuro: Level of Consciousness is awake, alert, obeys commands, Oriented to person, place, time, situation. Respiratory: Airway is patent Respiratory effort is even, unlabored, Respiratory pattern is regular, symmetrical. Historical: - Allergies: 17:20 No Known Allergies; ld1 - Home Meds: 17:20 None [Active]; ld1 - PSHx: 17:20 None; ld1 - Immunization history:: Adult Immunizations up to date, Client reports receiving the 2nd dose of the Covid vaccine, [employer]. - Social history:: Smoking status: Patient denies any tobacco usage or history of. Patient/guardian denies using alcohol. Screenin:36 Abuse screen: Denies threats or abuse. Nutritional screening: No deficits noted. ld1 Tuberculosis screening: No symptoms or risk factors identified. Fall Risk None identified. Assessment: 22:30 General: Appears uncomfortable. Pain: Complains of pain in lumbar area and right leg ld1 and buttocks and right gluteus pablo Pain currently is 8 out of 10 on a pain scale. Quality of pain is described as sharp. Neuro: No deficits noted. Cardiovascular: No deficits noted. Respiratory: No deficits noted. GI: No deficits noted. : No signs and/or symptoms were reported regarding the genitourinary system. Derm: No deficits noted. Musculoskeletal: Reports pain in lumbar area and right leg and buttocks and right gluteus pablo. Vital Signs: 17:18 BP 159 / 87; Pulse 102; Resp 20; Temp 98.5(O); Pulse Ox 98% on R/A; Weight 136.08 kg; ld1 Height 6 ft. 3 in. (190.50 cm); Pain 0/10; 17:18 Body Mass Index 37.50 (136.08 kg, 190.50 cm) ld1 ED Course: 16:45 Patient arrived in ED. ds1 17:20 Triage completed. ld1 17:20 Arm band placed on right wrist. ld1 20:55 Connor John PA is PHCP. [facility] 20:55 Saul Nelson MD is Attending Physician. [facility] 22:36 No provider procedures requiring assistance completed. Patient did not have IV access ld1 during this emergency room visit. 22:37 Patient has correct armband on for positive identification. Call light in reach. ld1 Administered Medications: 21:37 Drug: Ketorolac 30 mg Route: IM; Site: right deltoid; ld1 Outcome: 22:09 Discharge ordered by . [facility] 22:36 Discharged to home ambulatory. ld1 22:36 Condition: stable 22:36 Discharge instructions given to patient, Instructed on discharge instructions, no drinking with medication, no driving heavy equipment, medication usage, Demonstrated understanding of instructions, follow-up care, medications, Prescriptions given X 1. 22:37 Patient left the ED. ld1 Signatures: Connor John PA PA jmm Sanford, Demi ds1 Mary Mejias, RN RN ld1
--- NOTE | 2021-06-30 22:10 | EDPHYS ---
Physician Documentation [facility] Name: Juan Calabrese Age: 50 yrs Sex: Male : 1970 Arrival Date: 06/30/2021 Time: 16:45 Bed 11 Private MD: ED Physician Saul Nelson HPI: 06/30 21:32 This 50 yrs old Male presents to ER via Ambulatory with complaints of Sciatic jmm Pain. 21:32 The patient presents with pain that is acute. Onset: The symptoms/episode jmm began/occurred gradually, 10 day(s) ago. Modifying factors: The patient symptoms are alleviated by nothing, the patient symptoms are aggravated by walking. Associated signs and symptoms: Pertinent negatives: abdominal pain, chest pain, constipation, dysuria, fever, headache, hematuria, incontinence, nausea, numbness, tingling, urinary retention, vomiting, weakness. It is unknown whether or not the patient has had similar symptoms in the past. Historical: - Allergies: 17:20 No Known Allergies; ld1 - Home Meds: 17:20 None [Active]; ld1 - PSHx: 17:20 None; ld1 - Immunization history:: Adult Immunizations up to date, Client reports receiving the 2nd dose of the Covid vaccine, [employer]. - Social history:: Smoking status: Patient denies any tobacco usage or history of. Patient/guardian denies using alcohol. ROS: 21:32 Constitutional: Negative for fever, chills, and weight loss, Cardiovascular: Negative jmm for chest pain, palpitations, and edema, Respiratory: Negative for shortness of breath, cough, wheezing, and pleuritic chest pain. 21:32 Back: Positive for pain with movement. 21:32 All other systems are negative. Exam: 21:32 Constitutional: This is a well developed, well nourished patient who is awake, alert, jmm and in no acute distress. Head/Face: atraumatic. Eyes: EOMI, no conjunctival erythema appreciated ENT: Moist Mucus Membranes Neck: Trachea midline, Supple Chest/axilla: Normal chest wall appearance and motion. Cardiovascular: Regular rate and rhythm. No edema appreciated Respiratory: Normal respirations, no respiratory distress appreciated Abdomen/GI: Non distended, soft 21:32 Skin: General appearance color normal 21:32 Back: pain, that is moderate, of the lumbar area. 21:32 Musculoskeletal/extremity: ROM: intact in all extremities. 21:32 Skin: Appearance: Color: normal in color. 21:32 Neuro: Motor: is normal. 21:32 Psych: Behavior/mood is pleasant, cooperative. Vital Signs: 17:18 BP 159 / 87; Pulse 102; Resp 20; Temp 98.5(O); Pulse Ox 98% on R/A; Weight 136.08 kg; ld1 Height 6 ft. 3 in. (190.50 cm); Pain 0/10; 17:18 Body Mass Index 37.50 (136.08 kg, 190.50 cm) ld1 MDM: 21:14 Patient medically screened. [facility] 22:08 Data reviewed: vital signs, nurses notes. Counseling: I had a detailed discussion with britney the patient and/or guardian regarding: the historical points, exam findings, and any diagnostic results supporting the discharge/admit diagnosis, the need for outpatient follow up, to return to the emergency department if symptoms worsen or persist or if there are any questions or concerns that arise at home. ED course: Patient is alert and nontoxic in appearance in the ED. No signs of cauda equina or cord compression or spinal abscess. Patient vies to follow-up with spine surgery and otherwise given strict return precautions. Patient understood and agrees plan of care.. Administered Medications: 21:37 Drug: Ketorolac 30 mg Route: IM; Site: right deltoid; ld1 Disposition: 07/01 02:01 Co-signature as Attending Physician, Saul Nelson MD. courtney Disposition Summary: 06/30/21 22:09 Discharge Ordered Location: Home [facility] Condition: Stable [facility] Diagnosis - Sciatica, right side [facility] Followup: [facility] - With: Private Physician - When: 2 - 3 days - Reason: Recheck today's complaints, Continuance of care, Re-evaluation by your physician Discharge Instructions: - Discharge Summary Sheet gertrude - Sciatica [facility] Forms: - Medication Reconciliation Form devyn - Thank You Letter [facility] - Work release form [facility] - Antibiotic Education gertrude - Prescription Opioid Use [facility] Prescriptions: - Zanaflex 4 mg Oral Tablet - take 1 tablet by ORAL route every 8 hours As needed; 20 tablet; Refills: 0, britney Product Selection Permitted Signatures: Saul Nelson MD MD pkl Mickail, Joel, PA PA jmm Mary Mejias, RN RN ld1
[2021-06-30 22:43] VITALS: BP 159/87; TEMP 98.5; O2SAT 98
== END 2021-06-30 22:37 | disposition home or self-care (01) ==
LOC: ER 16:40
DX: M54.31 Sciatica, right side (principal)
CPT/HCPCS: 96372; 99283

== ENCOUNTER 2021-10-25 11:40 | Emergency (ER) | payer SELFPAY ==
--- OUTSIDE RECORDS SUMMARY | 2021-10-25 11:43 | XMS REPORT | Continuity of Care Document ---
:1970 Author Organization [facility] t Address [address] [place] [address] Care Team Providers Name Role Phone SHANTE POWERS Attending Clinician Unavailable DANNY Attending Clinician Unavailable MARK ANTHONY CALIXTO Attending Clinician Unavailable Lester Cardenas DO Attending Clinician Doctor Unassigned, Name Attending Clinician Unavailable Problems Condition Condition Condition Status Onset Resolution Last Treating Co mments Source Name Details Category Date Date Treatment Clinician Date No known No known Disease Unive rs active active ity of problems problems [facility] Allergies, Adverse Reactions, Alerts Allergy Allergy Status Severity Reaction(s) Onset Inactive Treating Comm ents Source Name Type Date Date Clinician NO KNOWN Drug Active Univers ALLERGIE Class ity of [facility] Social History Social Habit Start Date Stop Date Quantity Comments Source [facility] to SARS-CoV-2 Not sure [facility] Sex Assigned At Uni versity [facility] Smoking Status Start Date Stop Date Source Unknown if ever smoked [facility] Medications Ordered Filled Start Stop Current Ordering [...] 07/04/20 at 0600, GABRIEL ondansetron 2018-06 Yes [id number] 4mg Take 1 Univers (ZOFRAN 0-02 tablet by ity of ODT) 4 mg 00:00: mouth [place] disintegrat 00 every 8 Medic al ing tablet (eight) Branch hours as needed for Nausea and Vomiting (N/V). ondansetron 2018-06 Yes [id number] 4mg Take 1 Univers (ZOFRAN 0-02 tablet [...] 13:00:00 139 mm[Hg] Univer sity of pressure [facility] Diastolic blood 2020-07-04 13:00:00 75 mm[Hg[facility] Heart rate 2020-07-04 13:00:00 66 /min [facility] Respiratory rate 2020-07-04 13:00:00 16 /min [facility] Oxygen saturation in 2020-07-04 13:00:00 98 /min [facility] Arterial blood by [facility] Pulse oximetry Branch Body temperature 2020-07-04 11:32:00 36.33 [facility] Body height 2020-07-04 11:32:00 190.5 cm Universi [facility] Body weight 2020-07-04 11:32:00 124.739 kg [facility] BMI 2020-07-04 11:32:00 34.37 kg/m2 [facility] Systolic blood 2020-07-04 13:00:00 139 mm[Hg] Univer sity of pressure [facility] Diastolic blood 2020-07-04 13:00:00 75 mm[Hg] [facility] Heart rate 2020-07-04 13:00:00 66 /min [facility] Respiratory rate 2020-07-04 13:00:00 16 /min [facility] Oxygen saturation in 2020-07-04 13:00:00 98 /min [facility] Arterial blood by [facility] Pulse oximetry [place] Body temperature 2020-07-04 11:32:00 36.33 [facility] Body height 2020-07-04 11:32:00 190.5 cm [facility] Body weight 2020-07-04 11:32:00 124.739 kg [facility] BMI 2020-07-04 11:32:00 34.37 kg/m2 [facility] Procedures Procedure Date / Time Performed Performing Clinician Sourc e LIPASE 2020-07-04 11:57:00 Brenna Cardenas [facility] MAGNESIUM 2020-07-04 11:57:00 Brenna Cardenas [facility] HEPATIC FUNCTION 2020-07-04 11:57:00 Brenna Cardenas [facility] PANEL ([id number]) Medical Branch (ALB,T.PRO,BILI T,BU/BC,ALT,AST,ALK PHOS) BASIC METABOLIC PANEL 2020-07-04 11:57:00 Brenna Cardenas [facility] (NA, K, CL, CO2, Medical Branch GLUCOSE, BUN, CREATININE, CA) CBC WITH DIFF 2020-07-04 11:57:00 Brenna Cardenas [facility] NOTICE OF PRIVACY 2020-07-04 11:20:01 Doctor Unassigned, No [facility] Name [facility] Branch CONSENT/REFUSAL FOR 2020-07-04 11:19:29 Doctor Unassigned, [facility] DIAGNOSIS AND Name Medical Branch TREATMENT Encounters Start End Encounter Admission Attending Care Care Encounter Source Date/Time Date/Time Type Type Clinicians Facility Department ID 2021-10-20 2021-10-20 Emergency E PRIYA, MHBL MHBL [id number] MHBL 13:46:00 16:39:00 AMI 2021-07-28 2021-07-28 Emergency E MALORIE-A MHBL MHBL [id number] MHBL 11:15:00 14:00:00 LISET ALMANZAR 2021-06-23 2021-06-23 Emergency E PRIYA, MHBL MHBL [id number] MHBL 13:41:00 17:23:00 AMI 2020-08-25 2020-08-25 Emergency E MARILY BL BL [id number] MHBL 14:26:00 17:59:00 MARIA FERNANDA 2020-07-04 2020-07-04 Emergency [facility] [id number] 05:27:00 07:14:00 Brenna Ross [id number] [place] [id number] [place] [id number] [facility] 2020-07-04 2020-07-04 Emergency [facility] [id number] [facility] 05:27:00 07:14:00 [id number] [facility] [id number] [facility] [phone] [place] [address] Branch 2020-07-04 2020-07-04 Emergency X [facility] ERT [id number] Univers 05:20:00 05:20:00 ity of [facility] 2020-07-04 2020-07-04 Orders Doctor RUBIO [id number] 00:00:00 00:00:00 Only Unassigned, ALEJO [id number] [place] [facility] [id number] [id number] 2020-07-04 2020-07-04 Orders Doctor RAMIRO [id number] 00:00:00 00:00:00 Only Unassigned, ALEJO [id number] ity of [place] [facility] 4.2.7.2.686 Ra as [id number] [place] [address] Branch 2019-01-16 2019-01-16 Emergency E BL [facility] [id number] [facility] 11:56:00 11:56:00 Results Test Description Test Time Test Comments Results Result Comments Source COMPREHENSIVE METABOLIC PANEL 2021-09-09 18:25:21 Test Item Value Reference Range Interpretation Comme nts GLUCOSE (test code = 2216) 110 MG/DL 70-99 H BUN (test code = 2207) 17 MG/DL 6-20 CREATININE (test code = 1.04 MG/DL 0.80-1.40 2213) eGFR (2020 CKD-EPI) (test 86 ML/MIN/1.73 >60 code = 29211) CALC BUN/CREAT (test code = 16 RATIO 6-28 2234) SODIUM (test code = 223) 149 MEQ/L 133-146 H POTASSIUM (test code = 4.8 MEQ/L 3.5-5.4 2227) CHLORIDE (test code = 221) 105 MEQ/L 95-107 CARBON DIOXIDE (test code = 18 MEQ/L 19-31 L 2205) CALCIUM (test code = 2209) 10.3 MG/DL 8.5-10.5 PROTEIN, TOTAL (test code = 8.1 G/DL 6.1-8.3 2228) ALBUMIN (test code = 220) 5.1 G/DL 3.5-5.2 CALC GLOBULIN (test code = 3.0 G/DL 1.9-3.7 2239) CALC A/G RATIO (test code = 1.7 RATIO 1.0-2.6 2233) BILIRUBIN, TOTAL (test code 0.4 MG/DL See_Comment [Automated message] The = 2206) system which ge nerated this result transmit kd reference range: <=1.2. T he reference range was not u sed to interpret this result as normal/abnormal . ALKALINE PHOSPHATASE (test 110 U/L 40-121 code = 2204) AST (test code = 2218) 28 U/L 9-50 ALT (test code = 2219) 32 U/L 5-50 UNLESS OTHERWISE INDICATED, ALL TESTING PERFORMED [facility] [employer] [address] [place] [address] SOFTWARE TEST TECHNICIAN: INA OSCAR M.D. CLIA NUMBER [id number] [facility] [place]. [id number] LIPID [id number] 18:25:21 Test Item Value Reference Range Interpretation Comments CHOLESTEROL (test 212 MG/DL <200 H code = 2210) TRIGLYCERIDES (test 126 MG/DL <150 code = 2232) HDL CHOLESTEROL (test 55 MG/DL >39 code = 2220) CALC LDL CHOL (test 133 MG/DL <100 H NOTE: C ALCULATED LDL code = 2237) IS BASED ON BARRY-TONG METHOD WHICHINCLUDES ADJUSTABLE TRIGLYCERIDE:VL DL CHOLESTEROL RAT IO.THIS FACTOR VARIES B Y MEASURED TRIGLY CERIDE AND NON-HDLCHOL ESTEROL CONCENTRATIONS WITH INCREASED CALCU LATED LDL SEENIN HIGH ER TRIGLYCERIDE OR LOWER NON-HDL SPECIME NS. FOR MOREINFORMATION , SEE CLIENT ANNOUNCE MENT AT [email or web address] RATIO LDL/HDL 2.42 RATIO <3.55 (test code = 2238) CBC W/AUTO DIFF WITH [id number] 18:15:58 Test Item Value Reference Range Interpretation Comments WBC (test code = 8.6 K/UL 3.5-11.0 1001) RBC (test code = 5.15 M/UL 4.50-6.10 1002) HEMOGLOBIN (test code 16.1 G/DL 13.5-17.0 = 1003) HEMATOCRIT (test code 46.0 % 40.0-51.0 = 1004) MCV (test code = 89.3 fL 80.0-99.0 1005) MCH (test code = 31.3 PG 25.0-33.0 1006) MCHC (test code = 35.0 G/DL 31.0-36.0 1007) RDW (test code = 13.3 % 11.5-15.0 1038) NEUTROPHILS (test 76.5 % code = 1008) LYMPHOCYTES (test 15.2 % code = 1010) MONOCYTES (test code 7.4 % = 1011) EOSINOPHILS (test 0.3 % code = 1012) BASOPHILS (test code 0.1 % = 1013) IMMATURE GRANULOCYTES 0.5 % (test code = 1036) NUCLEATED RBCS (test 0.0 /100 See_Comment [Autom ated code = 1065) WBC'S message] The sy stem which generated this result transmitted reference range : 0.0. The refere nce range was not u sed to interpret th is result as normal/abnormal . PLATELET COUNT (test 276 K/UL 130-400 code = 1015) ABSOLUTE NEUTROPHILS 6.61 K/UL 1.50-7.50 (test code = 1066) ABSOLUTE LYMPHOCYTES 1.31 K/UL 1.00-4.00 (test code = 1067) ABSOLUTE MONOCYTES 0.64 K/UL 0.20-1.00 (test code = 1068) ABSOLUTE EOSINOPHILS 0.03 K/UL 0.00-0.50 (test code = 1040) ABSOLUTE BASOPHILS 0.01 K/UL 0.00-0.20 (test code = 1069) ABS IMMATURE 0.04 K/UL 0.00-0.10 GRANULOCYTES (test code = 1020) ABS NUCLEATED RBCS 0.00 K/UL 0.00-0.11 (test code = 05551) Basic Metabolic Panel (NA, K, CL, CO2, GLUCOSE, BUN, CREATININE, CA)2020-07-04 12:26:00 Test Item Value Reference Range Interpretation Comments NA (test code = 140 mmol/L 135-145 5838083653) K (test code = 4.2 mmol/L 3.5-5 8057356071) CL (test code = 103 mmol/L 98-108 9219280237) CO2 TOTAL (test code = 30 mmol/L 23-31 9685896379) AGAP (test code = 2-16 3465327254) BUN (test code = 17 mg/dL 7-23 2840366206) GLUCOSE (test code = 129 mg/dL 70-110 H 4154792615) CREATININE (test code = 0.87 mg/dL 0.6-1.25 4532054817) CALCIUM (test code = 8.7 mg/dL 8.6-10.6 2635562640) eGFR Calculation mL/min/1.73m2 (Non-) (test code = 1264268537) eGFR Calculation mL/min/1.73m2 () (test code = 7296956254) STACIE (test code = STACIE) Association of Glomerular Filtration Rate (GFR) and Staging of Kidney Disease* + --+ --+ ------+| GFR (mL/min/1.73 m2) ?| With Kidney Damage ?| ?Without Kidney Damage+ --------+ --------+ +| ?>90 ?| ?Stage one ?| ? Normal ?+ ---+ ---+ -------+| ?60-89 ?| ?Stage two ?| ? Decreased GFR ? + --+ --+ ------+| ?30-59 ?| ?Stage three ?| ? Stage three ? + --+ --+ ------+| ?15-29 ?| ?Stage four ? | ? Stage four ?+ ---+ ---+ -------+| ?<15 (or dialysis) ? ?| ?Stage five ? | ? Stage five ?+ ---+ ---+ -------+ *Each stage assumes the associated GFR [...] or abnormalities in imaging tests). Lab Interpretation Abnormal (test code = 52456-4) [facility] (ALB, T.PRO, BILI T, BU/BC, ALT, AST, ALK PHOS)2020-07-04 12:26:00 Test Item Value Reference Range Interpretation Comments TOTAL BILI (test code = 7947517556) 0.6 mg/dL 0.1-1.1 BILI UNCON (test code = 5569129941) 0.6 mg/dL 0.1-1.1 BILI CONJ (test code = 0426075742) 0.0 mg/dL 0-0.3 T PROTEIN (test code = 3659127513) 6.9 g/dL 6.3-8.2 ALBUMIN (test code = 7721434177) 4.2 g/dL 3.5-5 ALK PHOS (test code = 0189491291) 109 U/L 34-122 ALTv (test code = 1742-6) 30 U/L 5-50 AST(SGOT) (test code = 8738803024) 33 U/L 13-40 Lab Interpretation (test code = Normal 24745-8) [facility] Hospital[facility] [id number] 12:26:00 Test Item Value Reference Range Interpretation Comments LIPASE (test code = 7117376042) 308 U/L 0-220 H Lab Interpretation (test code = Abnormal 17856-0) [facility] 12:26:00 Test Item Value Reference Range Interpretation Comments MAGNESIUM (test code = 9772561615) 2.1 mg/dL 1.7-2.4 Lab Interpretation (test code = Normal 37295-5) [facility] with [id number] 12:15:00 Test Item Value Reference Range Interpretation Comments WBC (test code = See_Comment [Automated message] 5390-2) The system [employer] generated this result transmitted ref erence range: 4.20 - 1 0.70 10*3/?L. The re ference range was not u sed to interpret this result as normal/abnor mal. RBC (test code = See_Comment [Automated message] 029-8) The system [employer] generated this result transmitted ref erence range: [...] RDW-SD (test code 43.6 fL 38.5-51.6 = 55503-0) RDW-CV (test code 12.8 % 12.1-15.4 = 788-0) PLT (test code = See_Comment [Automated message] 777-3) The system whic h generated this result transmitted ref erence range: 150 - 32 8 10*3/?L. The re ference range was not u sed to interpret this result as normal/abnor mal. MPV (test code = 10.4 fL 9.8-13 10108-5) NRBC/100 WBC (test See_Comment [Automat ed message] code = 5014246277) The syste m which generated this result transmitted ref erence range: 0.0 - 10 .0 /100 WBCs. The refer ence range was not u sed to interpret this result as normal/abnor mal. NRBC x10^3 (test <0.01 See_Comment [Automated message] code = 5197514101) The syste m which generated this result transmitted ref erence range: 10*3/?L. The reference range was not used to interpr et this result as normal/abnormal . GRAN MAT (NEUT) % 60.0 % (test code = 770-8) IMM GRAN % (test 0.30 % code = 9908174671) LYMPH % (test code 26.0 % = 736-9) MONO % (test code 11.4 % = 5905-5) EOS % (test code = 1.8 % 713-8) BASO % (test code 0.5 % = 706-2) GRAN MAT 3.59 10*3/uL 1.99-6.95 x10^3(ANC) (test code = 3695694411) IMM GRAN x10^3 <0.03 0-0.06 (test code = 1028328322) LYMPH x10^3 (test 1.56 10*3/uL 1.09-3.23 code = 731-0) MONO x10^3 (test 0.68 10*3/uL 0.36-1.02 code = 742-7) EOS x10^3 (test 0.11 10*3/uL 0.06-0.53 code = 711-2) BASO x10^3 (test 0.03 10*3/uL 0.01-0.09 code = 704-7) [facility]"
--- NOTE | 2021-10-25 12:25 | RAD REPORT ---
EXAM DESCRIPTION: RAD - Hip Right 2 View - 10/25/2021 12:09 pm CLINICAL HISTORY: Right hip pain FINDINGS: No fracture or dislocation is seen. Marked osteoarthritis right hip consisting joint space narrowing, subchondral sclerosis and osteophyt es.
[2021-10-25] MEDS ORDERED: KETOROLAC 30 MG/ML INJ ONE (12:31)
--- NOTE | 2021-10-25 12:46 | EDPHYS ---
Physician Documentation [facility] Name: Juan Calabrese Age: 51 yrs Sex: Male : 1970 Arrival Date: 10/25/2021 Time: 11:42 Bed 11 Private MD: ED Physician Devin Link HPI: 10/25 12:23 This 51 yrs old Male presents to ER via Ambulatory with complaints of Hip Pain.jmm 12:23 The patient or guardian reports an injury, pain. Onset: The symptoms/episode jmm began/occurred acutely, 1 day(s) ago. Modifying factors: The symptoms are alleviated by nothing, the symptoms are aggravated by. Associated signs and symptoms: Loss of consciousness: the patient experienced no loss of consciousness. This is a 51 year old male with a history of htn that presents to the ED with complaints of right hip pain. This occurred after heavy lifting at work. patient states he felt a pop or pull. Pain is localized to the right lateral thigh. Denies back pain. . Historical: - Allergies: 11:51 No Known Allergies; vg1 - Home Meds: 11:51 Lisinopril Oral [Active]; vg1 - PMHx: 11:51 Hypertensive disorder; vg1 - Immunization history:: Client reports receiving the 2nd dose of the Covid vaccine. - Social history:: Smoking status: Patient denies any tobacco usage or history of. ROS: 12:23 Constitutional: Negative for fever, chills, and weight loss, Cardiovascular: Negative jmm for chest pain, palpitations, and edema, Respiratory: Negative for shortness of breath, cough, wheezing, and pleuritic chest pain. 12:23 MS/extremity: Positive for injury or acute deformity. 12:23 All other systems are negative. Exam: 12:23 Constitutional: This is a well developed, well nourished patient who is awake, alert, jmm and in no acute distress. Head/Face: atraumatic. Eyes: EOMI, no conjunctival erythema appreciated ENT: Moist Mucus Membranes Neck: Trachea midline, Supple Chest/axilla: Normal chest wall appearance and motion. Cardiovascular: Regular rate and rhythm. No edema appreciated Respiratory: Normal respirations, no respiratory distress appreciated Abdomen/GI: Non distended, soft Back: Normal ROM Skin: General appearance color normal 12:23 Cardiovascular: Regular rate and rhythm. No edema appreciated Neuro: Awake and alert Psych: Behavior is normal, Mood is normal, Patient is cooperative and pleasant 12:23 Musculoskeletal/extremity: right lateral thigh pain on palpation around the region of the greater trochanter. FROM appreciated to the right hip. Compartments are soft. Full distal pulse. NVI. Vital Signs: 11:48 BP 127 / 87; Pulse 77; Resp 18; Temp 98.1; Pulse Ox 100% ; Weight 136.08 kg; Height 6 vg1 ft. 3 in. (190.50 cm); Pain 8/10; 11:48 Body Mass Index 37.50 (136.08 kg, 190.50 cm) vg1 MDM: 12:08 Patient medically screened. [facility] 12:27 Data reviewed: vital signs, nurses notes. Counseling: I had a detailed discussion with [facility] the patient and/or guardian regarding: the historical points, exam findings, and any diagnostic results supporting the discharge/admit diagnosis, the need for outpatient follow up, to return to the emergency department if symptoms worsen or persist or if there are any questions or concerns that arise at home. 12:28 Counseling: I had a detailed discussion with the patient and/or guardian regarding: [facility] radiology results. ED course: xray revealed OA. Advised to follow up with ortho and otherwise given strict return precautions. patient understood and agrees with the plan of care. . 10/25 11:53 Order name: XRAY Hip RIGHT 2 view; Complete Time: 12:28 rn Administered Medications: 12:32 Drug: Ketorolac 30 mg Route: IM; Site: left deltoid; ap3 13:02 Follow up: Response: No adverse reaction ap3 Disposition: 18:49 Co-signature as Attending Physician, Devin Link MD. rn Disposition Summary: 10/25/21 12:45 Discharge Ordered Location: Home [facility] Condition: Stable [facility] Diagnosis - Strain of muscle, fascia and tendon of right hip [facility] Followup: [facility] - With: Gregor Emerson MD - When: 2 - 3 days - Reason: Recheck today's complaints, Continuance of care, Re-evaluation by your physician Discharge Instructions: - Discharge Summary Sheet [facility] - Hip Sprain [facility] Forms: - Medication Reconciliation Form [facility] - Thank You Letter [facility] - Work release form [facility] - Antibiotic Education [facility] - Prescription Opioid Use [facility] Prescriptions: - Zanaflex 4 mg Oral Tablet - take 1 tablet by ORAL route every 8 hours As needed; 20 tablet; Refills: 0, [facility] Product Selection Permitted Signatures: Dispatcher [employer] Connor Dooley PA PA Devin Munguia MD MD rn Krissy Rodriguez RN RN ap3 Macarena Laird RN RN vg1
--- NOTE | 2021-10-25 12:46 | ER ---
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 Coronavirus screen: Vaccine status: Patient reports receiving the 2nd dose of the covid vaccine. Client denies travel out of the [place] in the last 14 days. Ebola Screen: Patient denies exposure to infectious person. Patient denies travel to an Ebola-affected area in the 21 days before illness onset. Initial Sepsis Screen: Does the patient meet any 2 criteria? No. Patient's initial sepsis screen is negative. Does the patient have a suspected source of infection? No. Patient's initial sepsis screen is negative. Risk Assessment: Do you want to hurt yourself or someone else? Patient reports no desire to harm self or others. Onset of symptoms was October 24, 2021. 11:48 Method Of Arrival: Ambulatory vg1 11:48 Acuity: GUERA 4 vg1 Triage Assessment: 11:51 General: Appears uncomfortable, Behavior is cooperative. Pain: Complains of pain in vg1 Right Hip Pain currently is 8 out of 10 on a pain scale. Musculoskeletal: Circulation, motion, and sensation intact. Historical: - Allergies: 11:51 No Known Allergies; vg1 - Home Meds: 11:51 Lisinopril Oral [Active]; vg1 - PMHx: 11:51 Hypertensive disorder; vg1 - Immunization history:: Client reports receiving the 2nd dose of the Covid vaccine. - Social history:: Smoking status: Patient denies any tobacco usage or history of. Screenin:24 Abuse screen: Denies threats or abuse. Nutritional screening: No deficits noted. ap3 Tuberculosis screening: No symptoms or risk factors identified. Fall Risk No fall in past 12 months (0 pts). Secondary diagnosis (15 points) impaired mobility, No IV (0 pts). Ambulatory Aid- Crutches/Cane/Walker (15 pts). Gait- Weak (10 pts.). Mental Status- Oriented to own ability (0 pts). Total Caruso Fall Scale indicates Low Risk Score (25-44 pts). Fall prevention measures have been instituted. Side Rails Up X 2 Placed close to Nursing Station Frequent Obs/Assesments occuring As available Patient and Family Educated on Fall Prevention Program and strategies. Assessment: 12:23 General: Appears in no apparent distress. uncomfortable, Behavior is calm, cooperative, ap3 appropriate for age. Pain: Complains of pain in right hip, right leg. Neuro: Level of Consciousness is awake, alert, obeys commands, Oriented to person, place, time, situation, Speech is normal. Cardiovascular: Patient's skin is warm and dry. Respiratory: Airway is patent Respiratory effort is even, unlabored, Respiratory pattern is regular, symmetrical. Vital Signs: 11:48 BP 127 / 87; Pulse 77; Resp 18; Temp 98.1; Pulse Ox 100% ; Weight 136.08 kg; Height 6 vg1 ft. 3 in. (190.50 cm); Pain 8/10; 11:48 Body Mass Index 37.50 (136.08 kg, 190.50 cm) vg1 ED Course: 11:42 Patient arrived in ED. mr 11:51 Triage completed. vg1 11:51 Arm band placed on. vg1 12:01 Connor John PA is PHCP. [facility] 12:01 Devin Link MD is Attending Physician. [facility] 12:04 Krissy Rodriguez, RN is Primary Nurse. ap3 12:11 XRAY Hip RIGHT 2 view In Process Unspecified. EDMS 12:24 Patient has correct armband on for positive identification. Bed in low position. Call ap3 light in reach. Side rails up X 1. cafeteria monitor on. Pulse ox on. Door closed. Noise minimized. 12:45 Gregor Emerson MD is Referral Physician. [facility] 13:02 No provider procedures requiring assistance completed. Patient did not have IV access ap3 during this emergency room visit. Administered Medications: 12:32 Drug: Ketorolac 30 mg Route: IM; Site: left deltoid; ap3 13:02 Follow up: Response: No adverse reaction ap3 Outcome: 12:45 Discharge ordered by . [facility] 13:02 Discharged to home ambulatory. ap3 13:02 Condition: good 13:02 Discharge instructions given to patient, Instructed on discharge instructions, follow up and referral plans. medication usage, Demonstrated understanding of instructions, follow-up care, medications, Prescriptions given X 1. 13:02 Patient left the ED. ap3 Signatures: Dispatcher [employer] EDMS Connor John PA PA jmm Rivera, Mary mr JenniferKrissy, RN RN ap3 Macarena Laird RN RN vg1
[2021-10-25 13:18] VITALS: BP 127/87; TEMP 98.1; O2SAT 100
== END 2021-10-25 13:02 | disposition home or self-care (01) ==
LOC: ER 11:40
DX: S76.011A Strain of muscle, fascia and tendon of right hip, initial encounter (principal); X50.0XXA Overexertion from strenuous movement or load, initial encounter; Y92.89 Other specified places as the place of occurrence of the external cause; Y99.8 Other external cause status; I10 Essential (primary) hypertension
CPT/HCPCS: 96372; 99284